=== PATIENT | male | born 1970 | race Caucasian/White ===

== ENCOUNTER → 2017-11-22 11:33 | Outpatient (CLI) | payer BC, SELFPAY ==
[2017-11-22 14:36] LABS: Anion Gap 7 (5-15); BUN 13 mg/dL (7-18); BUN/Creat Ratio 14.4 RATIO (10-20); Calcium,Total 9.3 mg/dL (8.5-10.1); Chloride 104 mmol/L (98-107); EST Glomerular Filtration Rate 95 mL/min (>60); Est Glom Filt Rate - Afr Amer 116 mL/min (>60); Glucose 102 mg/dL (74-106); Sodium Level 137 mmol/L (136-145)
== END ==
LOC: MFPLAB 11:34
PROVIDERS: Family Provider Family Medicine; PCP Family Medicine; Visit Provider Family Medicine
DX: I10 Essential (primary) hypertension (principal)
CPT/HCPCS: 36415; 80048; 84403

== ENCOUNTER 2017-12-23 17:35 | Emergency (ER) | payer BC, SELFPAY ==
[2017-12-23 17:35] VITALS: PULSE 84; RESP 19; TEMP 37.2; O2SAT 98; BMI 35.4
[2017-12-23 17:56] VITALS: PULSE 80; RESP 24; O2SAT 97
[2017-12-23] MEDS: 0.9% Normal Saline 1,000 ML 1000 ML IV (18:05)
[2017-12-23] MEDS: Ondansetron 4 MG/2 ML Vial IV (18:05)
[2017-12-23] MEDS: Metoclopramide 10 MG/2 ML Vial IV (18:42)
[2017-12-23] MEDS: Dicyclomine 10 MG Capsule 20 MG PO (18:42)
--- NOTE | 2017-12-23 20:12 | ED.VISSUMM ---
- ER Visit Summary Date of Service: 12/23/17 Chief Complaint: Abdominal pain with nausea, vomiting diarrhea History of Present Illness: The patient is a 47 M who presents with abdominal pain with nausea, vomiting and diarrhea that started last evening. He did not eat anything that tasted unusual. Has not been on antibiotics the last month. There is no ill contacts. He reports 5-10 episodes of vomiting. He reports greater than 10 loose stools with mucus. There is no blood. There is no particular order. He does complain of thirst, lightheadedness and dry mouth. He does complain of subjective fever. He denies headache. Denies any ocular, visual or auditory symptoms. He did report shortness of breath. He does have history of anxiety/PTSD. He denies any chest pain. He reports decreased urine output. His urine is darker than normal. He denies any skin lesions. Denies myalgias arthralgias. Please read written note for complete detail. Physical Examination: Vital signs unremarkable. HEENT exam is remarkable dry mucosa. Heart is regular without murmur, gallop or rub. S1 and S2 are normal. Lungs are clear to auscultation with good movement of air bilaterally. Abdomen is minimally tender without guarding or rebound tenderness. Bowel sounds are markedly elevated. Examination lower extremity reveals no rash. There is no swelling of any joints. Neuro exam is nonfocal. Test Results: None were obtained Emergency Department Course and Treatment: IV was established she received 1 L of normal saline. He was treated with Zofran 4 mg IV push. He stated minimal improvement. He was then administered 10 mg of Reglan. He also received 20 mm of Bentyl. I was informed by nursing staff at 1999 that he feels markedly better would like to go home. Treatment Plan: Discharge to home with Bentyl and Reglan Disposition: Discharged home in stable improved condition Impression: 1. Abdominal pain with nausea, vomiting diarrhea 2. Mild dehydration This note was generated with [employer] dictation software. It may contain incorrect words, spelling, and punctuation that were not noted in review of the chart prior to signing ED Disposition - Plan for ED Patient: Disposition: Home or Assisted Living Chief Complaint: Nausea/Vomiting/Diarrhea Instructions: ED Vomiting Diarrhea Nonspecific Ad Prescriptions: Dicyclomine HCl [Bentyl] 20 mg PO TIDAC #10 cap Metoclopramide [Reglan] 10 mg PO 4X/DAY PRN #10 tab PRN Reason: Headache Referrals: Cezar Valera MD [Primary Care Provider] - 3-5 Days if not improving
[2017-12-23 20:16] VITALS: BP 124/68; PULSE 61; RESP 16; O2SAT 100
== END 2017-12-23 20:22 | disposition home or self-care (01) ==
PROVIDERS: Emergency Provider Emergency Medicine; Family Provider Family Medicine; PCP Family Medicine
DX: R10.9 Unspecified abdominal pain (principal); R11.2 Nausea with vomiting, unspecified; R19.7 Diarrhea, unspecified; E86.0 Dehydration; F41.9 Anxiety disorder, unspecified; F43.10 Post-traumatic stress disorder, unspecified; Z86.711 Personal history of pulmonary embolism; Z86.718 Personal history of other venous thrombosis and embolism; Z79.899 Other long term (current) drug therapy
CPT/HCPCS: 93005; 96361; 96374; 96375; 99283; J7030; J2405

== ENCOUNTER → 2018-02-20 15:31 | Outpatient (CLI) | payer BC, SELFPAY ==
--- NOTE | 2018-02-20 15:36 | RAD_ITS ---
STUDY: X-RAY - ABDOMEN/PELVIS REASON FOR EXAM: Male, 47 years old. Abdominal pain, irregular BM, hard or diarrhea. TECHNIQUE: AP supine and upright views of the abdomen and pelvis. 4 images. COMPARISON: None. FINDINGS: Normal visualized lung bases. There is an unremarkable bowel gas pattern. There is no demonstrated free abdominal air. The liver appears enlarged. Normal soft tissue structures. Normal visualized osseous structures. RAD/Abd Inc Decub and/or Erect IMPRESSION: There is no obstruction or perforation. Hepatomegaly. Electronically Signed: Nohemi Benoit MD at 5:59 EDT , Service support ,
[2018-02-20 17:43] LABS: Absolute Neutrophil Count 6.9 X10^3/uL (2.0-7.7); Basophil# 0.04 X10^3/uL; Basophil% 0.4 % (0-1); Eosinophil# 0.19 X10^3/uL; Eosinophils% 1.9 % (0-5); Hematocrit 48.9 % (40-54); Lymphocyte % 20.3 % (19-41); Mean Corp Hgb Conc 32.7 g/gl (32-36); Mean Corpuscular Hgb 29.6 pg (27.0-32.0); Mean Corpuscular Volume 90.6 fL (80-94); Mean Platelet Vol. 10.8 fl (6.2-12.0); Monocyte# 0.72 X10^3/uL; Monocyte% 7.3 % (0-10); Neutrophil # 6.88 X10^3/uL (2.7-7.7); Platelet Count 256 K/mm3 (150-450); RBC Distribution Width CV 13.6 % (11.6-14.6); RBC Distribution Width SD 44.8 fl (35.1-43.9); White Blood Count 9.8 K/mm3 (4.4-11.0)
[2018-02-20 17:53] LABS: POSITIVE COUNT NO; POSITIVE DIFFERENTIAL NO; POSITIVE MORPHOLOGY NO
[2018-02-20 17:57] LABS: D-Dimer Quantitative (DVT/PE) < 0.27 FEU/ug/m (0.27-0.49)
[2018-02-20 18:02] LABS: ALB/GLOB Ratio 1.1 RATIO (0.9-2.4); AST(SGOT) 35 U/L (15-37); Alanine Aminotransfer ALT/SGPT 58 U/L (16-61); Albumin, Serum 4.1 g/dL (3.2-5.0); Alkaline Phosphatase 107 U/L (45-117); Anion Gap 8 (5-15); BUN 13 mg/dL (7-18); BUN/Creat Ratio 12.3 RATIO (10-20); Calcium,Total 9.3 mg/dL (8.5-10.1); Chloride 103 mmol/L (98-107); Creatinine, Serum 1.06 mg/dL (0.70-1.30); EST Glomerular Filtration Rate 79 mL/min (>60); Est Glom Filt Rate - Afr Amer 96 mL/min (>60); Globulin 3.8 g/dL (2.2-4.2); Glucose 102 mg/dL (74-106); Protein, Total 7.9 g/dL (6.4-8.2); Sodium Level 140 mmol/L (136-145)
== END ==
LOC: MTLAB 15:32
PROVIDERS: Family Provider Family Medicine; PCP Family Medicine; Visit Provider Family Medicine
DX: R10.9 Unspecified abdominal pain (principal)
CPT/HCPCS: 36415; 74019; 80053; 85025; 85379

== ENCOUNTER → 2018-10-03 17:12 | Outpatient (CLI) | payer OTHER, SELFPAY ==
--- NOTE | 2018-10-03 17:16 | RAD_ITS ---
STUDY: X-RAY CHEST REASON FOR EXAM: Male, 48 years old. Shortness of breath and cough TECHNIQUE: PA and lateral views of the chest. COMPARISON: 04/06/2017 FINDINGS: The lungs are clear and expanded. There is no demonstrated pleural abnormality. Normal size heart. Normal mediastinum and martell. Normal visualized pulmonary arteries. Normal visualized aortic arch and descending thoracic aorta. Normal visualized thoracic spine. Normal visualized ribs, clavicles, and shoulders. There is no demonstrated abnormality of the visualized soft tissue structures of the upper abdomen. RAD/Chest PA and Lateral IMPRESSION: Stable exam. No airspace consolidation or pleural effusion. Electronically Signed: Colt Schulte MD at 17:57 EDT , Service support ,
== END ==
LOC: MTRAD 17:14
PROVIDERS: Family Provider Family Medicine; PCP Family Medicine; Referring Provider Family Medicine; Visit Provider Family Medicine
DX: R06.02 Shortness of breath (principal)
CPT/HCPCS: 71046

== ENCOUNTER → 2018-10-10 12:18 | Outpatient (CLI) | payer OTHER, SELFPAY ==
[2018-10-10 14:17] LABS: Absolute Lymphocyte Count 2.02 X10^3/ul (0.83-4.51); Absolute Neutrophil Count 7.2 X10^3/uL (2.0-7.7); Basophil# 0.03 X10^3/uL; Basophil% 0.3 % (0-1); Eosinophil# 0.15 X10^3/uL; Eosinophils% 1.4 % (0-5); Hematocrit 49.1 % (40-54); Hemoglobin 16.1 g/dl (13.0-16.5); Lymphocyte # 2.02 X10^3/ul (4.0); Lymphocyte % 19.5 % (19-41); Mean Corp Hgb Conc 32.8 g/gl (32-36); Mean Corpuscular Hgb 29.8 pg (27.0-32.0); Mean Corpuscular Volume 90.9 fL (80-94); Mean Platelet Vol. 10.7 fl (6.2-12.0); Monocyte# 0.93 X10^3/uL; Neutrophil # 7.19 X10^3/uL (2.7-7.7); Neutrophil % 69.4 % (47-70); POSITIVE COUNT NO; POSITIVE DIFFERENTIAL NO; POSITIVE MORPHOLOGY NO; Platelet Count 295 K/mm3 (150-450); RBC Distribution Width SD 45.7 fl (35.1-43.9); White Blood Count 10.4 K/mm3 (4.4-11.0)
[2018-10-10 14:21] LABS: D-Dimer Quantitative (DVT/PE) < 0.27 FEU/ug/m (0.27-0.49)
[2018-10-10 14:27] LABS: Anion Gap 6 (5-15); BUN 16 mg/dL (7-18); BUN/Creat Ratio 16.6 RATIO (10-20); Calcium,Total 9.1 mg/dL (8.5-10.1); Chloride 102 mmol/L (98-107); Creatinine, Serum 0.97 mg/dL (0.70-1.30); EST Glomerular Filtration Rate 88 mL/min (>60); Est Glom Filt Rate - Afr Amer 106 mL/min (>60); Glucose 103 mg/dL (74-106); Potassium 4.1 mmol/L (3.5-5.1); Sodium Level 137 mmol/L (136-145)
== END ==
LOC: MTLAB 12:19
PROVIDERS: Family Provider Family Medicine; PCP Family Medicine; Referring Provider Family Medicine; Visit Provider Family Medicine
DX: R07.9 Chest pain, unspecified (principal)
CPT/HCPCS: 36415; 80048; 84484; 85025; 85379

== ENCOUNTER → 2018-10-21 06:22 | Outpatient (CLI) | payer OTHER, SELFPAY ==
--- NOTE | 2018-10-21 13:28 | STRESSREP_ITS ---
Stress Test Report Exercise myocardial perfusion stress test. 48-year-old man with a history of chest pain Stress protocol: Resting EKG demonstrates normal sinus rhythm with a rate of 64 bpm normal intervals are noted resting blood pressure 148/92 mmHg. The patient exercised according to regular Duncan protocol for total duration of 7 minutes. Patient co mpleted 1 minute into stage III of the Duncan protocol the maximum heart rate attained was 150 bpm which was 87% of maximum predicted heart rate. The maximum workload was 8.5 metabolic equivalents. At rest there were no ST or T wave changes noted suggest ischemia peak exercise upsloping ST changes only were noted with no meet the criteria for ischemia. No clinical angina was noted the test was terminated due to shortness of breath. The resting blood pressure was 148/92 with a peak blood pressure of 220/80 mmHg. Rate pressure product was 31,600. Myocardial perfusion protocol. 14.9 mCi of technetium 99m sestamibi was injected at rest. The patient exercised for total duration of 7 minutes at peak exercise 44.8 mCi of technetium 99m sestamibi was injected stress images were obtained stress and rest images were reconstructed and compared in the short axis vertical long horizontal long axis. Gated images were also obtained per Perfusion SPECT analysis: Review of the stress images demonstrate normal uptake of tracer noted in all areas of the myocardium the resting images similarly demonstrate normal uptake of tracer noted in all areas of the myocardium. No areas of reversibility are noted suggest ischemia. Gated SPECT analysis: The gated ejection fraction is noted to be 54%. Conclusion: Normal exercise myocardial perfusion stress test at a moderate workload. Hypertensive response to exercise. Preserved ejection fraction.
== END ==
LOC: CVS 06:23
PROVIDERS: Family Provider Family Medicine; PCP Family Medicine; Referring Provider Family Medicine; Visit Provider Family Medicine
DX: R07.9 Chest pain, unspecified (principal)
CPT/HCPCS: 78452; 93017; A9500; A4216

== ENCOUNTER → 2019-03-26 | Outpatient (CLI) | payer OTHER, SELFPAY ==
[2019-03-26 10:55] LABS: Anion Gap 9 (5-15); BUN 16 mg/dL (7-18); Calcium,Total 8.8 mg/dL (8.5-10.1); Chloride 107 mmol/L (98-107); Cholesterol 202 mg/dL (200); EST Glomerular Filtration Rate 84 mL/min (>60); Est Glom Filt Rate - Afr Amer 102 mL/min (>60); Glucose 93 mg/dL (74-106); High Density Lipoprotein 51 mg/dL; Potassium 4.1 mmol/L (3.5-5.1); Sodium Level 140 mmol/L (136-145); Triglycerides 135 mg/dL; Very Low Density Lipoprotein 27 mg/dL (5-40)
== END | disposition home or self-care (01) ==
LOC: MTLAB 09:27
PROVIDERS: Family Provider Family Medicine; PCP Family Medicine; Referring Provider Family Medicine; Visit Provider Family Medicine
DX: I10 Essential (primary) hypertension (principal); R79.89 Other specified abnormal findings of blood chemistry
CPT/HCPCS: 36415; 80048; 80061; 84403

== ENCOUNTER → 2019-05-12 | Outpatient (CLI) | payer OTHER, SELFPAY ==
[2019-05-12 14:11] LABS: Absolute Lymphocyte Count 1.59 X10^3/uL (0.83-4.51); Absolute Neutrophil Count 5.9 X10^3/uL (2.0-7.7); Basophil# 0.06 X10^3/uL; Basophil% 0.7 % (0-1); Eosinophil# 0.25 X10^3/uL; Eosinophils% 2.9 % (0-5); Hematocrit 44.7 % (40-54); Hemoglobin 14.5 g/dL (13.0-16.5); Lymphocyte # 1.59 X10^3/ul (4.0); Lymphocyte % 18.3 % (19-41); Mean Corp Hgb Conc 32.4 g/dL (32-36); Mean Corpuscular Hgb 29.5 pg (27.0-32.0); Mean Platelet Vol. 10.4 fl (6.2-12.0); Monocyte% 9.2 % (0-10); NRBC Flagged by Analyzer 0 % (0-5); Neutrophil # 5.93 X10^3/uL (2.7-7.7); Neutrophil % 68.3 % (47-70); Platelet Count 233 K/mm3 (150-450); RBC Distribution Width CV 13.9 % (11.6-14.6); RBC Distribution Width SD 46.8 fl (35.1-43.9); Red Blood Count 4.91 M/mm3 (4.6-6.2); White Blood Count 8.7 K/mm3 (4.4-11.0)
[2019-05-12 14:19] LABS: D-Dimer Quantitative (DVT/PE) < 0.27 FEU/ug/m (0.27-0.49)
[2019-05-12 15:03] LABS: Anion Gap 7 (5-15); BUN 15 mg/dL (7-18); BUN/Creat Ratio 19.7 RATIO (10-20); Chloride 104 mmol/L (98-107); Creatinine, Serum 0.76 mg/dL (0.70-1.30); EST Glomerular Filtration Rate 115 mL/min (>60); Est Glom Filt Rate - Afr Amer 140 mL/min (>60); Glucose 82 mg/dL (74-106); Potassium 4.3 mmol/L (3.5-5.1); Sodium Level 139 mmol/L (136-145)
== END | disposition home or self-care (01) ==
LOC: MFPLAB 12:27
PROVIDERS: Family Provider Family Medicine; PCP Family Medicine; Referring Provider Family Medicine; Visit Provider Family Medicine
DX: R07.9 Chest pain, unspecified (principal)
CPT/HCPCS: 36415; 80048; 84403; 85025; 85379

== ENCOUNTER 2019-05-14 17:07 | Emergency (ER) | payer OTHER, SELFPAY ==
[2019-05-14 17:09] VITALS: BP 158/89; PULSE 89; RESP 18; TEMP 36.7; O2SAT 95; BMI 38.7
--- NOTE | 2019-05-14 17:30 | CT_ITS ---
STUDY: CTA CHEST REASON FOR EXAM: Male, 48 years old. Pain RADIATION DOSAGE (If Supplied By Facility): CTDIvol = ( 11.48 ) mGy, DLP = ( 448.72 ) mGycm TECHNIQUE: The examination was performed with the intravenous administration of IV Isovue 250 100ml. Post-processing of the angiographic images was performed, with multiplanar reformation and 3D reconstruction. Individualized dose optimization techniques were used for this CT. COMPARISON: None. FINDINGS: Normal enhancement of the main pulmonary artery and right and left pulmonary arteries. Normal enhancement of the bilateral peripheral pulmonary arteries. There is no demonstrated pulmonary embolism. Normal thoracic aorta and visualized great vessels. There is no demonstrated aortic dissection. Normal heart and pericardium. Normal mediastinum. Normal hilar regions. Normal visualized trachea and bronchi. The lungs are well expanded. Normal pulmonary parenchyma. Normal pleura. Normal chest wall structures. Normal osseous structures. Normal visualized upper abdomen. CT/CTA Chest W/WO Contrast IMPRESSION: Normal CTA chest examination, without a demonstrated pulmonary embolism or arterial dissection. Electronically Signed: Alvaro Loomis, at 18:09 EDT Tel , Service support ,
--- NOTE | 2019-05-14 17:31 | EKG12_ITS ---
Test Reason : CP Blood Pressure : / mmHG Vent. Rate : 103 BPM Atrial Rate : 103 BPM P-R Int : 148 ms QRS Dur : 086 ms QT Int : 346 ms P-R-T Axes : 046 027 043 degrees QTc Int : 453 ms Sinus tachycardia Nonspecific ST abnormality Abnormal ECG Confirmed by FOREST SALAZAR, BERNARDO ([id number]), editorial manager AREN GROVES ([id number]) on 05/16/2019 1:19:28 PM Referred By: MITRA Confirmed By:IKE GARG MD
[2019-05-14] MEDS: Ondansetron 4 MG/2 ML Vial IV (17:41)
[2019-05-14] MEDS: Morphine 4 MG/ML Syringe IV (17:41)
[2019-05-14 17:42] LABS: Absolute Lymphocyte Count 2.28 X10^3/uL (0.83-4.51); Absolute Neutrophil Count 7.9 X10^3/uL (2.0-7.7); Basophil% 0.9 % (0-1); Eosinophil# 0.26 X10^3/uL; Eosinophils% 2.2 % (0-5); Hematocrit 49.2 % (40-54); Hemoglobin 16.2 g/dL (13.0-16.5); Lymphocyte # 2.28 X10^3/ul (4.0); Lymphocyte % 19.4 % (19-41); Mean Corp Hgb Conc 32.9 g/dL (32-36); Mean Corpuscular Hgb 29.8 pg (27.0-32.0); Mean Corpuscular Volume 90.4 fL (80-94); Mean Platelet Vol. 9.9 fl (6.2-12.0); Monocyte# 1.12 X10^3/uL; Monocyte% 9.5 % (0-10); NRBC Flagged by Analyzer 0 % (0-5); Neutrophil # 7.92 X10^3/uL (2.7-7.7); Neutrophil % 67.6 % (47-70); Platelet Count 267 K/mm3 (150-450); RBC Distribution Width CV 13.3 % (11.6-14.6); RBC Distribution Width SD 43.9 fl (35.1-43.9); Red Blood Count 5.44 M/mm3 (4.6-6.2); White Blood Count 11.7 K/mm3 (4.4-11.0)
[2019-05-14 17:55] LABS: Anion Gap 7 (5-15); BUN 21 mg/dL (7-18); BUN/Creat Ratio 19.6 RATIO (10-20); Calcium,Total 9.7 mg/dL (8.5-10.1); Chloride 105 mmol/L (98-107); Creatinine, Serum 1.07 mg/dL (0.70-1.30); EST Glomerular Filtration Rate 78 mL/min (>60); Est Glom Filt Rate - Afr Amer 94 mL/min (>60); Estimated Creatinine Clearance 86.23 ml/min; Glucose 98 mg/dL (74-106); Potassium 3.9 mmol/L (3.5-5.1); Sodium Level 138 mmol/L (136-145)
[2019-05-14 18:08] VITALS: BP 184/91; PULSE 82; RESP 18; O2SAT 99
[2019-05-14 19:12] VITALS: RESP 16
--- NOTE | 2019-05-14 19:38 | ED.VISSUMM ---
- ER Visit Summary Date of Service: 05/14/19 Chief Complaint: Chest pain History of Present Illness: The patient is a 48 M who states that approximately 1500 hrs. today he developed a tightness left side of his chest going into the left arm. He had the symptoms before when he had a pulmonary embolism. He also notes that he is undergoing treatment for PTSD. Sees Dr. Valera for primary care. He lives with his . No leg swelling recent surgeries or trips. His prior pulmonary embolism appears to have been unprovoked and he tells me he underwent a hypercoagulable work-up which was negative. He tells me at times he will get very flushed sweaty. Physical Examination: Afebrile vital signs are stable Gen: Well-nourished well-developed Head: Normocephalic atraumatic Eyes: Perrl EOMI ENT: TMs clear no rhinorrhea moist mucous membranes Neck: Supple no lymphadenopathy no JVD nontender CVS: Regular rate rhythm no murmurs normal S1-S2 Respiratory: No distress clear to auscultation bilaterally chest nontender Abdomen: Soft nontender nondistended normal bowel sounds no masses Back: Nontender Extremity: Nontender no edema Skin: Normal color no rash Neuro: alert orientated ?3 CN II-XII intact normal strength sensation reflexes gait cerebellar Psych: Patient appears anxious. Test Results: EKG sinus rhythm at a rate of 103. White count 11.7. BUN 21 with creatinine 1.07. Initial troponin is negative. Emergency Department Course and Treatment: CTA of the chest was obtained because of his prior PE. No pulmonary embolism or evidence of dissection is noted. Patient declines a B set of cardiac enzymes. His heart score is 2 and his AKANKSHA score is 0. Impression: 1. Chest pain This note was generated with [employer] dictation software. It may contain incorrect words, spelling, and punctuation that were not noted in review of the chart prior to signing ED Disposition - Plan for ED Patient: Disposition: Home or Assisted Living Instructions: CHEST PAIN, Uncertain Cause Referrals: Cezar Valera MD [Primary Care Provider] - 3-5 Days
[2019-05-14 19:43] VITALS: BP 193/90; PULSE 86; RESP 16; O2SAT 97
== END 2019-05-14 19:44 | disposition home or self-care (01) ==
PROVIDERS: Emergency Provider Emergency Medicine; Family Provider Family Medicine; PCP Family Medicine
DX: R07.9 Chest pain, unspecified (principal); Z86.711 Personal history of pulmonary embolism; F43.10 Post-traumatic stress disorder, unspecified; Z79.899 Other long term (current) drug therapy
CPT/HCPCS: 71275; 80048; 84484; 85025; 93005; 96374; 96375; 99284; Q9967; A4216; J2405

== ENCOUNTER → 2019-08-28 09:57 | Outpatient (CLI) | payer OTHER, SELFPAY | PROVIDERS: PCP Family Medicine; Referring Provider Family Medicine; Visit Provider Family Medicine | DX: R79.89 Other specified abnormal findings of blood chemistry (principal) | CPT/HCPCS: 36415; 84403 ==

== ENCOUNTER 2022-04-17 09:46 | Emergency (ER) | payer OTHER, SELFPAY ==
[2022-04-17 09:47] VITALS: BP 154/85; PULSE 78; RESP 18; TEMP 36.2; O2SAT 97; BMI 35.2
--- NOTE | 2022-04-17 10:12 | CT_ITS ---
STUDY: CT ABDOMEN AND PELVIS WITH CONTRAST REASON FOR EXAM: Male, 51 years old. Abdominal pain with discomfort and bloating. Black stools. RADIATION DOSAGE (If Supplied By Facility): CTDIvol = ( 16.58 ) mGy, DLP = ( 1219.23 ) mGycm TECHNIQUE: Transaxial images were obtained from the dome of the diaphragm to the symphysis pubis without oral contrast. IV 100mL Isovue-370 was administered. Sagittal and coronal images were reconstructed. Individualized dose optimization techniques were used for this CT. COMPARISON: Comparison is made with prior study 05/13/2013. FINDINGS: The visualized lung bases are unremarkable. The visualized portions of the heart are within normal limits. Normal liver. Normal gallbladder and extrahepatic biliary system. Normal spleen. Normal pancreas. Normal bilateral adrenal glands. Normal right kidney. Normal left kidney. Incidental note is made of a left retroaortic renal vein. Normal visualized stomach. Normal small intestine. There are scattered colonic diverticula consistent with diverticulosis. The appendix is visualized and appears normal. Normal abdominal aorta. Normal inferior vena cava. Normal retroperitoneum. Normal urinary bladder. There are prostatic calcifications. Normal abdominal wall. There are mild degenerative changes of the visualized lumbar spine. CT/Abdomen/Pelvis W IV Cont ONLY IMPRESSION: Scattered sigmoid diverticula. Electronically Signed: Garry Ashby MD at 11:57 EDT ,
--- NOTE | 2022-04-17 10:13 | ED.VIS.GI ---
HPI HPI - GI History of Present Illness Chief Complaint: GI Bleed Informant: patient Narrative Narrative: [facility]. With having abdominal bloating and discomfort for past week. Indigestion symptoms. Reported he was having dark stools. He is using Pepto-Bismol however states he noted more the black stools prior to this. He stopped taking this on Sunday. Normal bowel movements are 3 times a day. Reports he is having multiple bowel moods a day however they are smaller. Colonoscopy in the last year reporting negative and cleared for 10 years. Unclear of any upper endoscopies in the past. Reported elevated liver enzymes over the past 4 months no alcohol history states had outpatient ultrasounds and hepatitis blood work that were negative. He was trending down now recently going back up. Denies fevers. No problems urination. No abdominal surgeries in the past. No anticoagulation medications. Prior similar symptoms: No PFSH PFSH Home Medications clonazepam 2 mg tablet (Klonopin) 2 mg PO DAILY PRN PRN Anxiety 12/23/17 [History Last Taken Unknown] fluoxetine 10 mg capsule 40 mg PO DAILY 05/14/19 [History Last Taken Unknown] trazodone 50 mg tablet 50 mg PO QHS 05/14/19 [History Last Taken Unknown] vortioxetine 20 mg tablet 20 mg PO DAILY 05/14/19 [History Last Taken Unknown] Allergy/AdvReac Type Severity Reaction Status Date / Time No Known Allergies Allergy Verified 04/17/22 09:49 Social History Smoking Status: Never smoker ROS ROS ED Constitutional Constitutional ED: Denies chills, fever(s) or sweats Eyes Eyes: Denies change in vision ENT ENT ED: Denies dysphagia or sore throat Cardiovascular Cardiovascular: Denies chest pain, leg edema, palpitations or racing heartbeat Respiratory/Chest Respiratory/Chest: Denies cough, dyspnea or dyspnea on exertion Gastrointestinal Gastrointestinal: Reports abdominal pain and other Details: Black stools ; Denies diarrhea, nausea or vomiting Genitourinary Genitourinary ED: Denies dysuria, hematuria or urinary frequency Musculoskeletal Musculoskeletal: Denies back pain, extremity pain or neck pain Integumentary Denies rash or wounds Neurologic Neurologic: Denies headache(s), paresthesias or weakness EXAM Physical Exam Const Vital Signs: 04/17/22 09:47 04/17/22 12:02 Temperature 97.2 F L Temperature Source Temporal Pulse Rate 78 Respiratory Rate 18 16 Blood Pressure 154/85 H Blood Pressure Mean 108 Pulse Ox 97 Oxygen Delivery Method Room Air Positive well nourished and well developed General Appearance ED: well developed and NAD HEENT Reports moist mucous membranes normocephalic and atraumatic Eyes PERRL, EOMs intact bilaterally and conjunctivae normal General Eye ED: Yes normal appearance of both eyes Neck no lymphadenopathy and supple General: Negative for tenderness Chest Wall Chest: Negative for tenderness Resp normal respiratory effort and normal air movement Effort and Inspection: symmetric chest movement; Negative for respiratory distress Cardio regular rate, regular rhythm and no murmurs Peripheral Pulses: pulses 2+ throughout GI normal to inspection, nondistended, normoactive bowel sounds and non-tender GI Narrative: Negative Ferguson's or McBurney's tenderness. Rectal exam: Known hemorrhoids, brown stools on rectal exam. Guaiac pending. Palpation: Negative for guarding or rebound tenderness present Back/Spine no CVA tenderness and no thoracic nor lumbar tenderness Extremity normal to inspection General Extremety ED: Negative for edema or tenderness General Extremity: Negative for edema Neuro oriented x3 and no sensory deficits noted Sensorium / Orientation: awake and alert Skin no rashes or lesions noted and no wounds MDM MDM MDM Narrative Medical decision making narrative: Patient 1 week constant bloating feels distended. Nonsurgical abdomen on exam. Abdominal labs obtained. Lipase normal at 283. He has slight transaminitis ALT 209 AST 85 normal bilirubin and normal alk phos. Discussed with patient this is lower than his outpatient labs. White count 7.3. CT scan IV contrast abdomen pelvis rule out any acute abnormalities which was normal. Normal appendix. Reported normal colonoscopy 2 years ago, had a reported right upper quadrant ultrasound the last few months. Offered her follow-up with GI here but he states he will call [facility] for [facility]. He is more reassured. He will monitor symptoms. Return precautions. All questions were answered. Lab Data Attestation: I reviewed the patient's lab results. Labs: Laboratory Results - last 24 hr 04/17/22 04/17/22 10:15 10:15 WBC 7.3 RBC 5.72 Hgb 17.0 H Hct 51.3 MCV 89.7 MCH 29.7 MCHC 33.1 RDW Std Deviation 46.0 H RDW Coeff of Sri 13.9 Plt Count 219 MPV 10.1 Immature Gran % (Auto) 0.500 Neut % (Auto) 56.4 Lymph % (Auto) 28.1 [place] % (Auto) 11.7 H Eos % (Auto) 2.5 Baso % (Auto) 0.8 Absolute Neuts (auto) 4.1 Absolute Lymphs (auto) 2.05 Nucleated RBC % 0 Sodium 139 Potassium 4.6 Chloride 105 Carbon Dioxide 29.0 Anion Gap 5 BUN 11 Creatinine 1.10 Estim Creat Clear Calc 81.11 Est GFR (MDRD) Af Amer 90 Est GFR (MDRD) Non-Af 75 BUN/Creatinine Ratio 10.0 Glucose 93 Calcium 9.1 Total Bilirubin 0.40 Direct Bilirubin 0.11 AST 85 H ALT 209 H Alkaline Phosphatase 101 Total Protein 7.1 Albumin 3.3 Globulin 3.8 Lipase 283 Radiography Diagnostic Testing: Clinical Impression(s) from Imaging Studies Abdomen/Pelvis CT 04/17/22 10:12 IMPRESSION: Scattered sigmoid diverticula. Electronically Signed: Garry Ashby MD at 11:57 EDT Reading Location ID and State: [facility] / [place] , Service support , Discharge Plan Triage Chief Complaint: GI Bleed ED Provider: Augustin Gray Dx/Rx/DC Orders Clinical Impression: Abdominal bloating, Diverticula of intestine, Transaminitis Instructions: ED Diverticulosis Prescriptions: No Action clonazepam [Klonopin] 2 MG tablet 2 mg PO DAILY PRN PRN (Reason: Anxiety) trazodone 50 MG tablet 50 mg PO QHS fluoxetine 10 MG capsule 40 mg PO DAILY Label Comments: TAKE 2 CAPSULES ORALLY DAILY FIRST 5 DAYS ONLY 1 CAPS vortioxetine 20 MG tablet 20 mg PO DAILY Label Comments: TAKE 1 TABLET BY MOUTH EVERY DAY Primary Care Provider: [facility] Referrals: Cezar Valera MD [Med Staff - Active Staff] - 3-5 Days Activity Restrictions/Additional Instructions: Your ALT is 209, AST 85. Normal lipase. Hemoglobin 17. CT scan with no abnormalities noted colonic diverticula. No diverticulitis. Rectal exam negative for bleed. Normal appendix. Monitor symptoms and follow-up with your doctor. Disposition Disposition: Home, Self Care Discharge Date/Time: 04/17/22 12:34
[2022-04-17] MEDS: 0.9% Normal Saline 1,000 ML 1000 ML IV (10:26)
[2022-04-17 10:31] LABS: Absolute Lymphocyte Count 2.05 X10^3/uL (0.83-4.51); Absolute Neutrophil Count 4.1 X10^3/uL (2.0-7.7); Basophil# 0.06 X10^3/uL; Basophil% 0.8 % (0-1); Eosinophil# 0.18 X10^3/uL; Eosinophils% 2.5 % (0-5); Hematocrit 51.3 % (40-54); Lymphocyte # 2.05 X10^3/ul (0.83-4.51); Lymphocyte % 28.1 % (19-41); Mean Corp Hgb Conc 33.1 g/dL (32-36); Mean Corpuscular Hgb 29.7 pg (27.0-32.0); Mean Corpuscular Volume 89.7 fL (80-94); Mean Platelet Vol. 10.1 fl (6.2-12.0); Monocyte# 0.85 X10^3/uL; Monocyte% 11.7 % (0-10); NRBC Flagged by Analyzer 0 % (0-5); Neutrophil # 4.11 X10^3/uL (2.7-7.7); Neutrophil % 56.4 % (47-70); Platelet Count 219 K/mm3 (150-450); RBC Distribution Width CV 13.9 % (11.6-14.6); Red Blood Count 5.72 M/mm3 (4.6-6.2); White Blood Count 7.3 K/mm3 (4.4-11.0)
[2022-04-17 10:56] LABS: AST(SGOT) 85 U/L (15-37); Alanine Aminotransfer ALT/SGPT 209 U/L (16-61); Albumin, Serum 3.3 g/dL (3.2-5.0); Alkaline Phosphatase 101 U/L (45-117); Anion Gap 5 (5-15); BUN 11 mg/dL (7-18); Bilirubin, Direct 0.11 mg/dL (0.00-0.30); Calcium,Total 9.1 mg/dL (8.5-10.1); Chloride 105 mmol/L (98-107); EST Glomerular Filtration Rate 75 mL/min (>60); Est Glom Filt Rate - Afr Amer 90 mL/min (>60); Estimated Creatinine Clearance 81.11 ml/min; Globulin 3.8 g/dL (2.2-4.2); Glucose 93 mg/dL (74-106); Lipase 283 U/L (73-393); Potassium 4.6 mmol/L (3.5-5.1); Protein, Total 7.1 g/dL (6.4-8.2); Sodium Level 139 mmol/L (136-145)
[2022-04-17 12:02] VITALS: RESP 16
== END 2022-04-17 12:34 | disposition home or self-care (01) ==
PROVIDERS: Emergency Provider Emergency Medicine; Visit Provider Emergency Medicine
DX: K57.30 Diverticulosis of large intestine without perforation or abscess without bleeding (principal); R74.01 Elevation of levels of liver transaminase levels; R14.0 Abdominal distension (gaseous)
CPT/HCPCS: 74177; 80048; 80076; 82274; 83690; 85025; 96365; 99283; J7030; Q9967; A4216; J3490

== ENCOUNTER 2022-06-20 12:32 | Inpatient (IN) | payer OTHER, SELFPAY ==
[2022-06-20] VITALS (24 sets, daily range): BP systolic 143–173; BP diastolic 84–107; PULSE 59–83; RESP 15–20; TEMP 36.5–37.1; O2SAT 94–98; BMI 37.7; BMI 37.8
--- NOTE | 2022-06-20 12:42 | ED.VIS.CHEST ---
HPI History of Present Illness Chief Complaint: Chest Pain Narrative Narrative: 51-year-old male past medical history of PTSD, depression and anxiety, positive family history of early coronary artery disease in his father presents with chest pain that began while he was lifting weights just prior to arrival. He states he had twinges of pain on the left side that he thought would go away. He rested but then became diaphoretic. He was nauseated and almost vomited as he was driving to the hospital. He denies any recent leg swelling. No history of hypertension. No exacerbating or alleviating factors. It does not radiate to his jaw or arm but is mainly on the left side of his chest. [facility] Medical History (Updated 06/20/22 @ 13:10 by Rocky Zabala MD) Pulmonary embolism Home Medications clonazepam 2 mg tablet (Klonopin) 2 mg PO DAILY PRN PRN Anxiety 12/23/17 [History Last Taken Unknown] fluoxetine 10 mg capsule 40 mg PO DAILY 05/14/19 [History Last Taken Unknown] trazodone 50 mg tablet 150 mg PO QHS 05/14/19 [History Last Taken Unknown] vortioxetine 20 mg tablet 20 mg PO DAILY 05/14/19 [History Last Taken Unknown] Allergy/AdvReac Type Severity Reaction Status Date / Time No Known Allergies Allergy Verified 06/20/22 12:37 Social History Smoking Status: Never smoker ROS ROS ED ROS Narrative Constitutional: No fever, no chills. Positive diaphoresis HEENT: No sore throat. No neck pain. No loss of vision. No rhinorrhea. Cardiovascular: Left-sided chest pain. No palpitations. No pedal edema. Respiratory: No cough, no shortness of breath. Abdominal: No abdominal pain. Positive nausea. No vomiting. Genitourinary: No dysuria. No hematuria. Musculoskeletal: No myalgias. No arthralgias. Neurologic: No headaches. No dizziness. No lightheadedness. Skin: No rash. No change in color. Psychiatric: No depression. No anxiety. EXAM Physical Exam Const Vital Signs: 06/20/22 12:33 06/20/22 12:37 06/20/22 12:38 Temperature 98.2 F Temperature Source Temporal Pulse Rate 81 Respiratory Rate 20 H Respiratory Effort Normal Non-Labored Blood Pressure 164/104 H 164/104 H Blood Pressure Mean 124 Pulse Ox 98 Oxygen Delivery Method Room Air Heart Score History: Highly Suspicious ECG: Significant ST-Depression Age: >45 - <65 years Risk Factors: 1 or 2 Risk Factors Score: 6 MDM MDM MDM Narrative Medical decision making narrative: EKG was obtained after patient brought back to room. He has 4 to [address] elevation in leads II, III, and aVF with ST depression in aVL. He also has ST elevation 3 to 4 mm across the precordium and laterally mainly in V3 through V6. He has slight depression in lead I and also noticed in aVR. Code STEMI was activated. He was administered heparin 4000 units intravenously, aspirin 324 mg orally, and Brilinta 180 mg orally. I discussed the patient with the systems integration engineer, Dr. Randall. Additionally, I discussed the patient with Dr. Barreto for admission to the ICU. Patient is in stable but guarded condition. Lab Data Attestation: I reviewed the patient's lab results. Labs: Laboratory Results - last 24 hr 06/20/22 06/20/22 06/20/22 12:30 12:30 12:30 WBC 10.2 RBC 5.73 Hgb 16.8 H Hct 51.4 MCV 89.7 MCH 29.3 MCHC 32.7 RDW Std Deviation 49.1 H RDW Coeff of Sri 14.9 H Plt Count 310 MPV 10.4 Immature Gran % (Auto) 0.900 Neut % (Auto) 54.8 Lymph % (Auto) 30.0 [place] % (Auto) 10.8 H Eos % (Auto) 2.4 Baso % (Auto) 1.1 H Absolute Neuts (auto) 5.6 Absolute Lymphs (auto) 3.07 Nucleated RBC % 0 PT 13.7 INR 1.1 APTT 22.5 L Sodium Cancelled Potassium Cancelled Chloride Cancelled Carbon Dioxide Cancelled Anion Gap Cancelled BUN Cancelled Creatinine Cancelled Estim Creat Clear Calc Cancelled Est GFR (MDRD) Af Amer Cancelled Est GFR (MDRD) Non-Af Cancelled BUN/Creatinine Ratio Cancelled Glucose Cancelled Calcium Cancelled Troponin I High Sens Cancelled Discharge Plan Dx/Rx/DC Orders Clinical Impression: ST elevation (STEMI) myocardial infarction, Chest pain, History of posttraumatic stress disorder (PTSD) Disposition Disposition: Acute Care Hospital [facility] Discharge Date/Time: 06/20/22 12:50
[2022-06-20] MEDS: Heparin Injection (Vial) 5,000 UNIT/ML VIAL 4000 UNIT IV (12:43)
[2022-06-20] MEDS: TICAGRELOR 90 MG TABLET 180 MG PO (12:44)
[2022-06-20] MEDS: Aspirin 81 MG TAB.CHEW 324 MG PO (12:44)
[2022-06-20 12:50] LABS: Absolute Lymphocyte Count 3.07 X10^3/uL (0.83-4.51); Absolute Neutrophil Count 5.6 X10^3/uL (2.0-7.7); Basophil# 0.11 X10^3/uL; Basophil% 1.1 % (0-1); Eosinophil# 0.25 X10^3/uL; Eosinophils% 2.4 % (0-5); Hematocrit 51.4 % (40-54); Hemoglobin 16.8 g/dL (13.0-16.5); Lymphocyte # 3.07 X10^3/ul (0.83-4.51); Mean Corp Hgb Conc 32.7 g/dL (32-36); Mean Corpuscular Hgb 29.3 pg (27.0-32.0); Mean Corpuscular Volume 89.7 fL (80-94); Mean Platelet Vol. 10.4 fl (6.2-12.0); Monocyte# 1.11 X10^3/uL; Monocyte% 10.8 % (0-10); NRBC Flagged by Analyzer 0 % (0-5); Neutrophil # 5.61 X10^3/uL (2.7-7.7); Neutrophil % 54.8 % (47-70); Platelet Count 310 K/mm3 (150-450); RBC Distribution Width CV 14.9 % (11.6-14.6); RBC Distribution Width SD 49.1 fl (35.1-43.9); Red Blood Count 5.73 M/mm3 (4.6-6.2); White Blood Count 10.2 K/mm3 (4.4-11.0)
--- NOTE | 2022-06-20 12:50 | ED.RN ---
patient requesting his daughters- Sherice and Enid be informed about his condition. No further questions at this time
--- NOTE | 2022-06-20 12:53 | NURSING ---
CALLING [facility].
[2022-06-20 13:01] LABS: International Normalized Ratio 1.1; Partial Thromboplast Time 22.5 Seconds (24.1-36.2); Prothrombin Time (Protime)PT. 13.7 SECONDS (11.7-14.9)
--- NOTE | 2022-06-20 13:01 | NURSING ---
NO ANSWER AT [facility]. COULDN'T EVEN LEAVE A MESSAGE.
--- NOTE | 2022-06-20 13:22 | NURSING ---
CV ICU [address] STEMI
--- NOTE | 2022-06-20 13:28 | CM.ED ---
SW Note SW responded to STEMI alert. SW was present with patient's girlfriend,Merary, and 2 daughters. Emotional support provided. SW remains available if needs arise. Millicent DOMINGUEZ
[2022-06-20 13:33] LABS: Anion Gap 10 (5-15); BUN 10 mg/dL (7-18); BUN/Creat Ratio 8.6 RATIO (10-20); Calcium,Total 9.9 mg/dL (8.5-10.1); Chloride 102 mmol/L (98-107); Creatinine, Serum 1.16 mg/dL (0.70-1.30); EST Glomerular Filtration Rate 70 mL/min (>60); Est Glom Filt Rate - Afr Amer 85 mL/min (>60); Estimated Creatinine Clearance 74.49 ml/min; Glucose 117 mg/dL (74-106); Potassium 3.9 mmol/L (3.5-5.1); Sodium Level 137 mmol/L (136-145); Troponin-I HS 17 pg/mL (3.0-78.0)
--- NOTE | 2022-06-20 13:45 | EKG12_ITS ---
Test Reason : PCI Blood Pressure : / mmHG Vent. Rate : 070 BPM Atrial Rate : 070 BPM P-R Int : 154 ms QRS Dur : 086 ms QT Int : 402 ms P-R-T Axes : 072 011 082 degrees QTc Int : 434 ms Normal sinus rhythm Inferior-posterior infarct , age undetermined Abnormal ECG When compared with ECG of 20-JUN-2022 12:36, MANUAL COMPARISON REQUIRED, DATA IS UNCONFIRMED Confirmed by NICHELLE SALAZAR, MARY ([id number]), art editor FRANKO ORDONEZ ([id number]) on 06/21/2022 9:20:31 AM Referred By: Yoni Randall Confirmed By:MARY STEWARD MD
--- NOTE | 2022-06-20 13:52 | CON.PCM.CA_ITS ---
Assessment & Plan Assessment/Plan (1) ST elevation (STEMI) myocardial infarction: PLAN: Acute STEMI. Patient was taken emergently to the cardiac catheterization lab. Coronary angiography revealed total occlusion of the proximal first obtuse marginal branch. Successful balloon angioplasty followed with deployment of a 3.0 x 15 mm drug-eluting stent was performed. The stent was postdilated using a 3.5 mm balloon. Excellent results were noted. Continue aspirin lifelong. Plavix for at least 1 year.Start on statins. Check lipid profile. Check 2D echocardiogram with Doppler. (2) Hypertension: PLAN: Start on beta-blockers, angiotensin receptor lourdes. Also start on hydrochlorothiazide. (3) PTSD (post-traumatic stress disorder): PLAN: As per internal medicine. HPI Consult Data Date of Consult: 06/20/22 HPI Narrative HPI Narrative: JOSE PETERS, is a 51 M who presented to the emergency room with complaints of chest discomfort that started about an hour prior to presentation. No radiation to the arm neck or jaw.Positive nausea but no vomiting. In the emergency room, patient had an EKG done which showed acute inferior ST elevation myocardial infarction. Subsequently a STEMI alert was called. [facility] Medical History (Updated 06/20/22 @ 13:[address] Yoni Randall MD) Pulmonary embolism Home Medications clonazepam 2 mg tablet (Klonopin) 2 mg PO DAILY PRN PRN Anxiety 12/23/17 [History Last Taken Unknown] fluoxetine 10 mg capsule 40 mg PO DAILY 05/14/19 [History Last Taken Unknown] trazodone 50 mg tablet 150 mg PO QHS 05/14/19 [History Last Taken Unknown] vortioxetine 20 mg tablet 20 mg PO DAILY 05/14/19 [History Last Taken Unknown] Allergy/AdvReac Type Severity Reaction Status Date / Time No Known Allergies Allergy Verified 06/20/22 12:37 Social History Smoking Status: Never smoker Physical Exam Narrative Appeared anxious. Heart sounds 1 and 2 noted. Chest clear to auscultation ant eriorly. Abdomen soft. Alert oriented x3. No ankle edema. Risk Stratification Risk Stratification Applicable: No Objective Data Vital Signs: Vital Signs Temp Pulse Resp BP Pulse Ox O2 Del Method O2 Flow Rate 98.2 F 73 18 173/107 H 98 Nasal Cannula 2 06/20/22 13:07 06/20/22 13:07 06/20/22 13:07 06/20/22 13:07 06/20/22 13:07 06/20/22 13:07 06/20/22 13:07 Oxygen Flow Rate (L/min) 2 Oxygen Delivery Method Nasal Cannula Weight: 255 lb 8.252 oz Body Mass Index (BMI) 37.7 Lab / Micro Data Result Diagrams: 06/20/22 12:30 06/20/22 13:05 Labs: Laboratory Results - last 24 hr 06/20/22 12:30: WBC 10.2, RBC 5.73, Hgb 16.8 H, Hct 51.4, MCV 89.7, MCH 29.3, MCHC 32.7, RDW Std Deviation 49.1 H, RDW Coeff of Sri 14.9 H, Plt Count 310, MPV 10.4, Immature Gran % (Auto) 0.900, Neut % (Auto) 54.8, Lymph % (Auto) 30.0, [place] % (Auto) 10.8 H, Eos % (Auto) 2.4, Baso % (Auto) 1.1 H, Absolute Neuts (auto) 5.6, Absolute Lymphs (auto) 3.07, Nucleated RBC % 0 06/20/22 12:30: PT 13.7, INR 1.1, APTT 22.5 L 06/20/22 12:30: Sodium Cancelled, Potassium Cancelled, Chloride Cancelled, Carbon Dioxide Cancelled, Anion Gap Cancelled, BUN Cancelled, Creatinine Can celled, Estim Creat Clear Calc Cancelled, Est GFR (MDRD) Af Amer Cancelled, Est GFR (MDRD) Non-Af Cancelled, BUN/Creatinine Ratio Cancelled, Glucose Cancelled, Calcium Cancelled, Troponin I High Sens Cancelled 06/20/22 13:05: Sodium 137, Potassium 3.9, Chloride 102, Carbon Dioxide 25.0, Anion Gap 10, BUN 10, Creatinine 1.16, Estim Creat Clear Calc 74.49, Est GFR (MDRD) Af Amer 85, Est GFR (MDRD) Non-Af 70, BUN/Creatinine Ratio 8.6 L, Glucose 117 H, Calcium 9.9, Troponin I High Sens 17 Rhythm Strip Rhythm Strip: Sinus Rhythm Cardiology Labs/Tests 06/20/22 12:30: WBC 10.2, RBC 5.73, Hgb 16.8 H, Hct 51.4, MCV 89.7, MCH 29.3, MCHC 32.7, Plt Count 310, MPV 10.4, Immature Gran % (Auto) 0.900, Neut % (Auto) 54.8, Lymph % (Auto) 30.0, [place] % (Auto) 10.8 H, Eos % (Auto) 2.4, Baso % (Auto) 1.1 H, Absolute Neuts (auto) 5.6, Nucleated RBC % 0 06/20/22 12:30: PT 13.7, INR 1.1, APTT 22.5 L 06/20/22 12:30: Sodium Cancelled, Potassium Cancelled, Chloride Cancelled, Carbon Dioxide Cancelled, Anion Gap Cancelled, BUN Cancelled, Creatinine Cancelled, Est GFR (MDRD) Af Amer Cancelled, Est GFR (MDRD) Non-Af Cancelled, BUN/Creatinine Ratio Cancelled, Glucose Cancelled, Calcium Cancelled 06/20/22 13:05: Sodium 137, Potassium 3.9, Chloride 102, Carbon Dioxide 25.0, Anion Gap 10, BUN 10, Creatinine 1.16, Est GFR (MDRD) Af Amer 85, Est GFR (MDRD) Non-Af 70, BUN/Creatinine Ratio 8.6 L, Glucose 117 H, Calcium 9.9 Rhythm: EKG:Normal sinus rhythm. Acute inferior ST elevation injury pattern. ECHO: Stress Test: Cardiac Cath: PCI: CT Surgery: Holter monitor: EPS: PPM: CXR: Chest CT Scan:
--- NOTE | 2022-06-20 14:00 | PCM.HP.STD ---
HPI - General General Date of Admission: 06/20/22 Date of Service: 06/20/22 Chief Complaint: Chest pain that is started after lifting weights just prior to arrival. HPI Narrative JOSE PETERS, is a 51 M was brought to ED for chest pain that began after he was lifting weights prior to arrival. Patient also became diaphoretic, nauseated. No leg swelling. Patient has family history of early coronary artery disease in father. Chest pain was precordial/left-sided with no radiation to jaw or arm, probably precipitated by weightlifting with no exacerbating or relieving factor. Patient past history significant of pulmonary embolism, PTSD depression and anxiety. [facility] Medical History Pulmonary embolism Home Medications clonazepam 2 mg tablet (Klonopin) 2 mg PO DAILY PRN PRN Anxiety 12/23/17 [History Last Taken Unknown] fluoxetine 10 mg capsule 40 mg PO DAILY 05/14/19 [History Last Taken Unknown] trazodone 50 mg tablet 150 mg PO QHS 05/14/19 [History Last Taken Unknown] vortioxetine 20 mg tablet 20 mg PO DAILY 05/14/19 [History Last Taken Unknown] Allergy/AdvReac Type Severity Reaction Status Date / Time No Known Allergies Allergy Verified 06/20/22 12:37 Social History Smoking Status: Never smoker Vital Signs Vital Signs Vital Signs: 06/20/22 12:33 06/20/22 12:37 06/20/22 12:38 Temperature 98.2 F Temperature Source Temporal Pulse Rate 81 Respiratory Rate 20 H Respiratory Effort Normal Non-Labored Blood Pressure 164/104 H 164/104 H Blood Pressure Mean 124 Pulse Ox 98 Oxygen Delivery Method Room Air Oxygen Flow Rate (L/min) 06/20/22 12:50 06/20/22 13:07 Temperature 98.2 F Temperature Source Temporal Pulse Rate 73 73 Respiratory Rate 18 18 Respiratory Effort Blood Pressure 173/107 H 173/107 H Blood Pressure Mean 129 129 Pulse Ox 98 98 Oxygen Delivery Method Nasal Cannula Nasal Cannula Oxygen Flow Rate (L/min) 2 2 Weight Weight: 255 lb 8.252 oz Body Mass Index (BMI) 37.7 Results Lab / Micro Data Result Diagrams: 06/20/22 12:30 06/20/22 13:05 Labs: Laboratory Results - last 24 hr 06/20/22 12:30: WBC 10.2, RBC 5.73, Hgb 16.8 H, Hct 51.4, MCV 89.7, MCH 29.3, MCHC 32.7, RDW Std Deviation 49.1 H, RDW Coeff of Sri 14.9 H, Plt Count 310, MPV 10.4, Immature Gran % (Auto) 0.900, Neut % (Auto) 54.8, Lymph % (Auto) 30.0, [place] % (Auto) 10.8 H, Eos % (Auto) 2.4, Baso % (Auto) 1.1 H, Absolute Neuts (auto) 5.6, Absolute Lymphs (auto) 3.07, Nucleated RBC % 0 06/20/22 12:30: PT 13.7, INR 1.1, APTT 22.5 L 06/20/22 12:30: Sodium Cancelled, Potassium Cancelled, Chloride Cancelled, Carbon Dioxide Cancelled, Anion Gap Cancelled, BUN Cancelled, Creatinine Cancelled, Estim Creat Clear Calc Cancelled, Est GFR (MDRD) Af Amer Cancelled, Est GFR (MDRD) Non-Af Cancelled, BUN/Creatinine Ratio Cancelled, Glucose Cancelled, Calcium Cancelled, Troponin I High Sens Cancelled 06/20/22 13:05: Sodium 137, Potassium 3.9, Chloride 102, Carbon Dioxide 25.0, Anion Gap 10, BUN 10, Creatinine 1.16, Estim Creat Clear Calc 74.49, Est GFR (MDRD) Af Amer 85, Est GFR (MDRD) Non-Af 70, BUN/Creatinine Ratio 8.6 L, Glucose 117 H, Calcium 9.9, Troponin I High Sens 17 Rhythm Strip Rhythm Strip: Sinus Rhythm
--- NOTE | 2022-06-20 14:01 | PCM.HP.STD ---
HPI - General General Date of Admission: 06/20/22 Date of Service: 06/20/22 Chief Complaint: Chest pain HPI Narrative The patient is a 51 y/o M w/ PMHx: Obesity, Anxiety and Depression/PTSD, Hx VTE (DVT, PE) who presents to the [facility] ED on 06/20/22 with history of onset lateral upper extremities for described as an aching while he was at the gym working out at approximately 11:30 in the morning specifically biking with then intervals in between prompting to stop at approximately noon at which point he went to the store to get water and food however he then had discomfort into his midsternal chest again described as an ache rated at 10 out of 10 in severity with significant dyspnea, nausea requiring him to even stop and bone puller to dry heave with associated diaphoresis eventually prompting transition to the ED for evaluation. Work-up in the ED included T98.2, heart rate 81, BP 164/104, respiratory rate 20, 90% room air, CBC with WBC 10.2, hemoglobin 16.8, platelet 310 without marked shift, coags with PT 22.5 otherwise not marked appearing, BMP unremarkable aside glucose 117, troponin 17, EKG with sinus rhythm with [address] elevation in leads II, III and aVF with ST depressions in aVL as well as ST elevations 3 to 4 mm across the precordium and laterally mainly in V3 through V6 with slight depressions in lead I and also in aVR with STEMI code activated. Patient was administered a heparin 4000 unit IV bolus as well as aspirin full-strength and Brilinta load with 180 mg orally. Cardiology, Dr. Randall was called in and patient was transition from the ED to cardiac catheterization lab for intervention. [facility] Medical History (Updated 06/20/22 @ 14:[address] Dipika Ramirez MD) Anxiety and depression History of posttraumatic stress disorder (PTSD) Obesity Pulmonary embolism Home Medications clonazepam 2 mg tablet (Klonopin) 2 mg PO DAILY PRN PRN Anxiety 12/23/17 [History Last Taken Unknown] fluoxetine 10 mg capsule 40 mg PO DAILY 05/14/19 [History Last Taken Unknown] trazodone 50 mg tablet 150 mg PO QHS 05/14/19 [History Last Taken Unknown] vortioxetine 20 mg tablet 20 mg PO DAILY 05/14/19 [History Last Taken Unknown] Allergy/AdvReac Type Severity Reaction Status Date / Time No Known Allergies Allergy Verified 06/20/22 12:37 Family History (Updated 06/20/22 @ 14:[address] Dipika Ramirez MD) Mother Lung cancer Concurrent tobacco use history. Father CVA (cerebral vascular accident) Hypertension CAD (coronary artery disease) Early onset. Surgical History (Updated 06/20/22 @ 14:[address] Dipika Ramirez MD) H/O hernia repair Social History (Updated 06/20/22 @ 14:[address] Dipika Ramirez MD) household members: significant other Smoking Status: Never smoker alcohol intake: current alcohol intake frequency: holidays/special occasions only substance use type: does not use ROS ROS Narrative Admission Review of Systems: CONSTITUTIONAL: No weight loss, fever, chills, + weakness or fatigue. HEENT: Eyes: No visual loss, blurred vision, double vision or yellow sclerae. Ears, Nose, Throat: No hearing loss, sneezing, congestion, runny nose or sore throat. SKIN: No rash or itching, lesions, wounds. CARDIOVASCULAR:+ chest pain, chest pressure or chest discomfort, No palpitations, edema, orthopnea, syncopal events. RESPIRATORY: + shortness of breath, No cough or sputum, wheezing, hemoptysis. GASTROINTESTINAL: + nausea, vomiting, No diarrhea, abdominal pain, melena, BRBPR. GENITOURINARY: No dysuria, frequency, urgency or retention. NEUROLOGICAL: No headache, dizziness, syncope, paralysis, ataxia, numbness or tingling in the extremities, focal weakness, change in bowel or bladder control, seizure. MUSCULOSKELETAL: + muscle, back pain, joint pain or stiffness. HEMATOLOGIC: No anemia, bleeding or bruising. LYMPHATICS: No enlarged nodes. No history of splenectomy. PSYCHIATRIC: + history of depression or anxiety/PTSD. ENDOCRINOLOGIC: No reports of sweating, cold or heat intolerance. No polyuria or polydipsia. ALLERGIES: No history of asthma, hives, eczema or rhinitis. Vital Signs Vital Signs Vital Signs: 06/20/22 12:33 06/20/22 12:37 06/20/22 12:38 Temperature 98.2 F Temperature Source Temporal Pulse Rate 81 Respiratory Rate 20 H Respiratory Effort Normal Non-Labored Blood Pressure 164/104 H 164/104 H Blood Pressure Mean 124 Pulse Ox 98 Oxygen Delivery Method Room Air Oxygen Flow Rate (L/min) 06/20/22 12:50 06/20/22 13:07 Temperature 98.2 F Temperature Source Temporal Pulse Rate 73 73 Respiratory Rate 18 18 Respiratory Effort Blood Pressure 173/107 H 173/107 H Blood Pressure Mean 129 129 Pulse Ox 98 98 Oxygen Delivery Method Nasal Cannula Nasal Cannula Oxygen Flow Rate (L/min) 2 2 Weight Weight: 255 lb 8.252 oz Body Mass Index (BMI) 37.7 Physical Exam Narrative Physical Examination: General: Awake, alert, oriented x 3 and cooperative, laying on the cardiac cath table, notes chest discomfort currently improved to 3 out of 10 in severity. Skin: Normal color, normal turgor, no icterus, no cyanosis, cardiac catheterization access currently still in place. HEENT: AT/NC, EOMI, PERRLA, moderately dry MM, no carotid bruits or JVD noted; however, thickened neck makes evaluation difficult. Lungs: Mildly diminished, greater bases, appropriate effort, no rales, ronchi or wheezing. Heart: Currently regular rate and rhythm; no gallop, rub audible. Abdomen: Soft, obese, NTTP, ND, distant mildly hyperactive BS, no HSM. Extremities: No cyanosis, clubbing, or edema. Neurological: Patient awake, alert, oriented as noted, cognitive function intact; pupils equally reactive to light and accommodation, cranial nerves II-XII grossly normal, moving all 4 extremities except expected limitation given intervention, no focal deficits, strength moderately global decreased given acute presentation Psychiatric: Affect appears fatigued, anxious, no acute evidence of depressive feelings. Results Lab / Micro Data Result Diagrams: 06/20/22 12:30 06/20/22 13:05 Labs: Laboratory Results - last 24 hr 06/20/22 12:30: WBC 10.2, RBC 5.73, Hgb 16.8 H, Hct 51.4, MCV 89.7, MCH 29.3, MCHC 32.7, RDW Std Deviation 49.1 H, RDW Coeff of Sri 14.9 H, Plt Count 310, MPV 10.4, Immature Gran % (Auto) 0.900, Neut % (Auto) 54.8, Lymph % (Auto) 30.0, [place] % (Auto) 10.8 H, Eos % (Auto) 2.4, Baso % (Auto) 1.1 H, Absolute Neuts (auto) 5.6, Absolute Lymphs (auto) 3.07, Nucleated RBC % 0 06/20/22 12:30: PT 13.7, INR 1.1, APTT 22.5 L 06/20/22 12:30: Sodium Cancelled, Potassium Cancelled, Chloride Cancelled, Carbon Dioxide Cancelled, Anion Gap Cancelled, BUN Cancelled, Creatinine Cancelled, Estim Creat Clear Calc Cancelled, Est GFR (MDRD) Af Amer Cancelled, Est GFR (MDRD) Non-Af Cancelled, BUN/Creatinine Ratio Cancelled, Glucose Cancelled, Calcium Cancelled, Troponin I High Sens Cancelled 06/20/22 13:05: Sodium 137, Potassium 3.9, Chloride 102, Carbon Dioxide 25.0, Anion Gap 10, BUN 10, Creatinine 1.16, Estim Creat Clear Calc 74.49, Est GFR (MDRD) Af Amer 85, Est GFR (MDRD) Non-Af 70, BUN/Creatinine Ratio 8.6 L, Glucose 117 H, Calcium 9.9, Troponin I High Sens 17 Rhythm Strip Rhythm Strip: Sinus Rhythm Assessment & Plan Assessment/Plan (1) ST elevation (STEMI) myocardial infarction: PLAN: Plan The patient is a 51 y/o M w/ PMHx: Obesity, Anxiety and Depression/PTSD, Hx VTE (DVT, PE) who presents to the [facility] ED on 06/20/22 with history of onset lateral upper extremities for described as an aching while he was at the gym working out at approximately 11:30 in the morning specifically biking with then intervals in between prompting to stop at approximately noon at which point he went to the store to get water and food however he then had discomfort into his midsternal chest. #1. Chest Pain w/ Acute Inferior STEMI: ED evaluation with troponin 17, EKG with sinus rhythm with [address] elevation in leads II, III and aVF with ST depressions in aVL as well as ST elevations 3 to 4 mm across the precordium and laterally mainly in V3 through V6 with slight depressions in lead I and aVR. Will admit to the ICU following completion cardiac catheterization, current . We will continue per cardiology discretion aspirin 81 mg daily, Plavix 75 mg daily, atorvastatin 40 mg nightly, Coreg 3.125 mg p.o. twice daily, hydrochlorothiazide 25 mg p.o. daily, losartan 25 mg p.o. daily, maintain on a monitored bed, continue serial cardiac enzymes and EKGs, obtain magnesium level upon admission, ECHO requested, FLP in AM, judicious hydration given recent catheterization. ASA, NG, morphine. #2. Elevated BP without prior HTN history: Given acute presentation as noted #1 patient per cardiology discretion initiated on low-dose Coreg, hydrochlorothiazide and losartan as noted with further adjustments pending response, as needed IV hydralazine also in interim. #3. Reported history VTE: Reported history DVT, PE remotely in 2017 with discharge summary report noting anticoagulation panel ordered at that time per neurology with plan to follow-up outpatient in their office as at that time he had concurrent neurological presentation however MRI was unremarkable. Patient denies any history of hypercoagulable state upon evaluation. #4. Anxiety and depression/PTSD: We will continue patient home Klonopin, fluoxetine, trazodone. #5. Obesity: Weight loss and lifestyle changes encouraged. #6. DVT prophylaxis: SCDs, administered heparin bolus upon presentation, as long as no concerns from wrist access from cardiac catheterization in a.m. would initiate on Lovenox chemoprophylaxis. Charges/Coding Visit Charges Inpatient E&M: 69031 Init Hosp L3
--- NOTE | 2022-06-20 14:07 | CL.I_ITS ---
Patient Name: JOSE PETERS Study Date: 06/20/2022 Performing: Yoni Randall MD Ht: 69 inches 175.26 cm : 1970 Wt: 255.52 lbs 115.9 kg Age: 51 Gender: male BSA: 2.29 PROCEDURE(S) PERFORMED DC01-(65527)LHC/COR/LV IC16-([id number]/[id number])AMI, [place] OR PTCA, ARTERY/GRAFT, SINGLE VESSEL CLINICAL PROFILE AND CO-MORBIDITIES Indications: ACS <= 24 hrs Heart Failure: None CAD Presentations: STEMI. Symptom onset Date/Time: Time Not Available CONCLUSIONS 100% Prox OM1 Mild luminal irregularities LAD 40-50% Prox RCA LVEF 55-60% Successful PTCA/[place] Prox OM1 using Resolute [place] 3.0x15 mm, post-dilated using 3.5 mm balloon RECOMMENDATIONS ASA Indefinitley Plavix for at least 12 months DESCRIPTION OF PROCEDURE The patient arrived to the procedure lab. The risks and benefits of the procedure as well as a full description of our services here and lack of surgical backup were fully explained to the patient and/or their significant other prior to the catheterization. The Timeout was completed, verifying the correct patient and procedure. The patient's procedural site was prepped and draped in the usual fashion. Local anesthetic was given subcutaneously to right radial region with Lidocaine 2%. Using a modified Seldinger technique, and ultrasound guidance,arterial access was obtained via the right radial artery, a 6Fr sheath was inserted., arterial access was obtained via the right radial artery, a 6Fr sheath was inserted.. Left Coronary Artery selective angiography was performed in multiple views using a 5 Fr. 4.0 [place] catheter. Right Coronary Artery selective angiography was then performed in multiple views using a 6 Fr. JR 4 catheter. Left Ventriculography was performed in KWAN projection using a 5 Fr. Pigtail catheter. LV to AO pullback pressures were then recordedThe images were reviewed and options discussed. A decision was then made to proceed with an Intervention, IVUS or other adjunct procedure. XB 3.0 Guide catheter was inserted and engaged into the LCA. Runthrough Guide wire was advanced to the 1st OM. 2.5 x 15 Emerge Balloon catheter was inserted. Balloon catheter was advanced across lesion in the first obtuse marginal, proximal. PTCA balloon inflated at 6 atms for 15 secs. 3.0 x 15 [place] Drug Eluting stent was inserted. Drug Eluting stent was advanced across the lesion in the first obtuse marginal, proximal. Angiogram performed pre stent deployment. Angiogram performed post stent deployment. 3.5 x 15 NC Emerge Balloon catheter was inserted post stent. Angiogram performed post balloon dilatation. The arterial sheath was pulled and a TR Band was applied for hemostasis. 10cc air inserted. CORONARY ANGIOGRAPHY DOMINANCE: Right Dominant LEFT HEART ASSESSMENT Left Ventricular Ejection Fraction: by LV Gram 60 % LVEDP: 18 mmHg LEFT ANTERIOR DESCENDING ARTERY: LAD: Luminal Irregularities 10% Proximal lesion in LAD OM 1: Complex 50% Proximal lesion in 1st OM RIGHT CORONARY ARTERY: RCA: Tubular 50% Proximal lesion in RCA INTERVENTION INFORMATION LESION SITE: 1st OM (Proximal) Lesion Complexity: High/C, thrombus present: Yes, lesion length: 13 mm, culprit lesion: Yes Pre Stenosis: 100 % Pre intervention AKANKSHA flow: 0 PROCEDURE: Drug Eluting Stent with pre and post dilatation Post Stenosis: 0 % Post intervention AKANKSHA flow: 3 Lesion Devices: Cordis 6 Fr XB3.0 100cm Guide Catheter Terumo .014 Runthrough Extra Floppy 180cm straight [place] Sci EMERGE MR 2.50x15 BALLOON Medtronic Resolute [place] RX [place] 3.0x15 [place] Sci NC EMERGE MR 3.50x15 BALLOON COMPLICATIONS No Complications PROCEDURE MEDICATIONS Fentanyl 50 mcg IV Versed 2 mg IV Fentanyl 50 mcg IV Versed 2 mg IV Oxygen: 2 L/min via nasal cannula Heparin 8000 unit(s) IV 06/20/2022 13:12:38 Heparin 6000 unit(s) IV 06/20/2022 13:38:16 Nitro 200 mcg IC 06/20/2022 13:23:37 Verapamil 2.5mg, Ntg 200mcgs, given IA 06/20/2022 13:07:21 SUMMARY OF HEMODYNAMIC DATA Time AIR REST ECG 12:56:09 AO 162/129 (144) SA 13:10:18 LV 157/12, 22 13:36:03 LV 162/9, 21 13:36:11 LVp 158/12, 22 13:37:52 AOp 147/96 (115) 13:37:59 Signed By Yoni Randall MD On 06/20/2022 14:07:15 Yoni Randall MD
[2022-06-20] MEDS: 0.9% Normal Saline 1,000 ML 150 ML IV (14:41)
[2022-06-20 14:55] LABS: Magnesium 1.8 mg/dL (1.6-2.6)
[2022-06-20] MEDS: Carvedilol 3.125 MG TABLET PO ×2 (15:10→19:41)
[2022-06-20] MEDS: hydroCHLOROthiazide 25 MG Tablet PO (15:10)
--- NOTE | 2022-06-20 15:15 | CRPHASE1_ITS ---
Patient Communication PHII Cardiac Rehab Discussed with Patient:: Yes Guide to Cardiac Rehab Given to Patient:: Yes Cardiac Rehab Facility Choice List Given to Patient:: Yes Choice Program [facility] PHII:: Communication Given to CR Film Replacement Orderer:: Yoni Randall Phase II Cardiac Rehab:: Yes Sessions:: 36 sessions - 3 days/wk, 12 weeks Cardiac Rehabilitation Info Cardiac Rehabilitation Program Information: Cardiac Rehabilitation is important for patients like you who are recovering from a heart problem. Cardiac rehabilitation programs are recognized as integral to the continued care of the patient with coronary heart disease. The cardiac rehabilitation program is designed to optimize a patient's physical, psychological, and social functioning. Health janitor caretaker work in cardiac rehabilitation programs and assist you with getting the treatments you need to get stronger and healthier - like exercise, healthy eating habits, and medications. Cardiac rehabilitation has been show to help people with heart problems live longer and have better life enjoyment than people who do not go to cardiac rehabilitation. Please contact the Cardiac Rehabilitation Program at [facility] at in two weeks if you have not heard from them.
--- NOTE | 2022-06-20 15:16 | CRPH1.INSTRU ---
General Education CAD and cardiac anatomy and function:: Patient communicates acknowledgment, Family communicates acknowledgment, Needs reinforcement Explanation of diagnoses and procedures:: Patient communicates acknowledgment, Family communicates acknowledgment, Needs reinforcement Sign/Symptoms of PA:: Patient communicates acknowledgment, Family communicates acknowledgment, Needs reinforcement Antiplatelet therapy: Patient communicates acknowledgment, Family communicates acknowledgment, Needs reinforcement Proper use of NTG-SL: Patient communicates acknowledgment, Family communicates acknowledgment, Needs reinforcement Emergency procedures and activation of EMS: Patient communicates acknowledgment, Family communicates acknowledgment, Needs reinforcement Compliance of all prescribed medications: Patient communicates acknowledgment, Family communicates acknowledgment, Needs reinforcement Smoking Patient Nicotine/Smoking Risk Factors Are:: Non-smoker Dyslipidemia Recommendations Include:: Lipid profile not available Dyslipidemia Response Code:: Patient communicates acknowledgment, Family communicates acknowledgment, Needs reinforcement Overweight/Obesity Patient Overweight/Obesity Risk Factors Are:: Obesity - > or = 30 Recommendations Include:: Weight loss of 5-10%, Reduced calorie diet, Exercise 5-7 times/week Overweight/Obesity:: Patient communicates acknowledgment, Family communicates acknowledgment, Needs reinforcement Hypertension Recommendations Include:: Maintain BP <130/85, Decrease/maintain normal body weight Hypertension:: Patient communicates acknowledgment, Family communicates acknowledgment, Needs reinforcement Diabetes Patient Diabetes Risk Factors Are:: No documented hx of diabetes
[2022-06-20 16:14] LABS: Troponin-I HS 24064 pg/mL (3.0-78.0)
[2022-06-20 16:47] LABS: ACT Activated Clotting Time 190 sec (74-137)
[2022-06-20 16:47] LABS: ACT Activated Clotting Time 126 sec (74-137)
[2022-06-20 16:48] LABS: ACT Activated Clotting Time 242 sec (74-137)
[2022-06-20] MEDS: clonazePAM 1 MG Tablet 2 MG PO (19:21)
--- NOTE | 2022-06-20 19:21 | NURSING ---
Pt very anxious. Pt requesting something to help relax. Klonopin po given. Family at bedside. Family requesting to spend the night. Informed them about hospital policy. Pt then c/o chest discomfort morphine given
[2022-06-20] MEDS: Morphine 4 MG/ML Syringe IV (19:36)
[2022-06-20] MEDS: Atorvastatin Calcium 40 MG Tablet PO (19:41)
[2022-06-20] MEDS: Losartan Potassium 25 MG Tablet PO ×2 (19:41→21:47)
[2022-06-20] MEDS: Clopidogrel Bisulfate 300 MG Tablet PO (19:41)
[2022-06-20] MEDS: traZODone 50 MG Tablet 150 MG PO (21:47)
[2022-06-21] VITALS (18 sets, daily range): BP systolic 106–147; BP diastolic 65–91; PULSE 62–93; RESP 12–18; TEMP 36.5–36.8; O2SAT 93–98
[2022-06-21 04:06] LABS: Hematocrit 47.5 % (40-54); Hemoglobin 15.5 g/dL (13.0-16.5); Mean Corp Hgb Conc 32.6 g/dL (32-36); Mean Corpuscular Hgb 29.2 pg (27.0-32.0); Mean Corpuscular Volume 89.5 fL (80-94); Mean Platelet Vol. 10.2 fl (6.2-12.0); Platelet Count 263 K/mm3 (150-450); RBC Distribution Width CV 14.7 % (11.6-14.6); RBC Distribution Width SD 48.2 fl (35.1-43.9); Red Blood Count 5.31 M/mm3 (4.6-6.2); White Blood Count 13.2 K/mm3 (4.4-11.0)
[2022-06-21 04:26] LABS: AST(SGOT) 286 U/L (15-37); Alanine Aminotransfer ALT/SGPT 114 U/L (16-61); Albumin, Serum 3.4 g/dL (3.2-5.0); Alkaline Phosphatase 53 U/L (45-117); Anion Gap 6 (5-15); BUN 11 mg/dL (7-18); BUN/Creat Ratio 10.3 RATIO (10-20); Calcium,Total 9.1 mg/dL (8.5-10.1); Chloride 101 mmol/L (98-107); Cholesterol 170 mg/dL (200); Creatinine, Serum 1.07 mg/dL (0.70-1.30); EST Glomerular Filtration Rate 77 mL/min (>60); Est Glom Filt Rate - Afr Amer 93 mL/min (>60); Estimated Creatinine Clearance 78.13 ml/min; Globulin 3.3 g/dL (2.2-4.2); Glucose 103 mg/dL (74-106); High Density Lipoprotein 27 mg/dL; Potassium 4.1 mmol/L (3.5-5.1); Protein, Total 6.7 g/dL (6.4-8.2); Sodium Level 136 mmol/L (136-145); Triglycerides 128 mg/dL; Very Low Density Lipoprotein 26 mg/dL (5-40)
[2022-06-21] MEDS: hydroCHLOROthiazide 25 MG Tablet PO (08:24)
[2022-06-21] MEDS: Losartan Potassium 25 MG Tablet PO (08:24)
[2022-06-21] MEDS: Aspirin E.C. 81 MG Tablet PO (08:24)
[2022-06-21] MEDS: Carvedilol 3.125 MG TABLET PO (08:24)
[2022-06-21] MEDS: Clopidogrel Bisulfate 75 MG Tablet PO (08:24)
[2022-06-21] MEDS: Fluoxetine HCl 40 MG CAPSULE PO (08:25)
--- NOTE | 2022-06-21 08:27 | PCM.PN.HOSP ---
Subjective Subjective Follow-up for anterior lateral and inferior STEMI Patient had uneventful night. Chest pain has resolved. Objective Data Objective Data Vital Signs: Vital Signs Temp Pulse Resp BP Pulse Ox O2 Del Method O2 Flow Rate 97.9 F 65 16 128/65 H 97 Room Air 2 06/21/22 04:00 06/21/22 08:00 06/21/22 08:00 06/21/22 08:00 06/21/22 08:00 06/21/22 08:00 06/20/22 13:07 Oxygen Flow Rate (L/min) 2 Oxygen Delivery Method Room Air Weight: 254 lb 10.142 oz Body Mass Index (BMI) 37.8 Intake & Output: Intake and Output for Last 24 Hours 06/19/22 06/20/22 06/21/22 23:59 23:59 23:59 Intake Total 1360 / 1360 240 / 240 Output Total 700 / 700 1100 / 1100 Balance 660 / 660 -860 / -860 Lab / Micro Data Result Diagrams: 06/21/22 03:55 06/21/22 03:55 Labs: Laboratory Results - last 24 hr 06/20/22 12:30: WBC 10.2, RBC 5.73, Hgb 16.8 H, Hct 51.4, MCV 89.7, MCH 29.3, MCHC 32.7, RDW Std Deviation 49.1 H, RDW Coeff of Sri 14.9 H, Plt Count 310, MPV 10.4, Immature Gran % (Auto) 0.900, Neut % (Auto) 54.8, Lymph % (Auto) 30.0, [place] % (Auto) 10.8 H, Eos % (Auto) 2.4, Baso % (Auto) 1.1 H, Absolute Neuts (auto) 5.6, Absolute Lymphs (auto) 3.07, Nucleated RBC % 0 06/20/22 12:30: PT 13.7, INR 1.1, APTT 22.5 L 06/20/22 13:05: Sodium 137, Potassium 3.9, Chloride 102, Carbon Dioxide 25.0, Anion Gap 10, BUN 10, Creatinine 1.16, Estim Creat Clear Calc 74.49, Est GFR (MDRD) Af Amer 85, Est GFR (MDRD) Non-Af 70, BUN/Creatinine Ratio 8.6 L, Glucose 117 H, Calcium 9.9, Troponin I High Sens 17 06/20/22 13:05: Magnesium 1.8, Troponin I High Sens Cancelled 06/20/22 13:12: Activated Clotting Time 126 06/20/22 13:34: Activated Clotting Time 190 H 06/20/22 13:43: Activated Clotting Time 242 H 06/20/22 15:10: Troponin I High Sens [id number] H* 06/20/22 18:05: Troponin I High Sens [id number] H* 06/21/22 03:55: WBC 13.2 H, RBC 5.31, Hgb 15.5, Hct 47.5, MCV 89.5, MCH 29.2, MCHC 32.6, RDW Std Deviation 48.2 H, RDW Coeff of Sri 14.7 H, Plt Count 263, MPV 10.2 06/21/22 03:55: Sodium 136, Potassium 4.1, Chloride 101, Carbon Dioxide 29.0, Anion Gap 6, BUN 11, Creatinine 1.07, Estim Creat Clear Calc 78.13, Est GFR (MDRD) Af Amer 93, Est GFR (MDRD) Non-Af 77, BUN/Creatinine Ratio 10.3, Glucose 103, Calcium 9.1, Total Bilirubin 0.90, AST 286 H, ALT 114 H, Alkaline Phosphatase 53, Total Protein 6.7, Albumin 3.4, Globulin 3.3, Albumin/Globulin Ratio 1.0, Triglycerides 128, Cholesterol 170, LDL Cholesterol 117, VLDL Cholesterol 26, HDL Cholesterol 27 L Rhythm Strip Rhythm Strip: Sinus Rhythm Physical Exam Narrative General: Alert, Oriented x3, Cooperative HEENT: Atraumatic, PERRLA, EOMI, Normocephalic Oral: No Gingival or Mucosal Lesions/ Ulcerations Neck: Supple, No JVD, Negative Carotid Bruits Lungs: Air entry diminished in bilateral lung bases. No crepitation/rhonchi Cardiovascular: Regular rate, Regular Rhythm, Normal S1, Normal S2, No murmurs Abdomen: Bowel Sounds Present, Soft, Non Tender, Non-Distended : No renal angle tenderness. No suprapubic tenderness. Extremities: No edema, Capillary Refill Less than 3 Seconds Skin: Right radial artery access site, no hematoma or bruise. Musculoskeletal: No Tenderness to Palpation of Joints or Extremities. ROM full and adequate. Neurological: Cranial nerves II-XII grossly intact, DTR 2+/4 and Symmetrical, Neuro grossly intact Psych/Mental Status: Normal Affect, Appropriate. Assessment & Plan Assessment/Plan (1) ST elevation (STEMI) myocardial infarction: PLAN: Plan This 51-year-old question gentleman was admitted with midsternal chest heaviness/tightness and EKG finding of STEMI. The patient felt lightheaded while lifting weights in gym and thereafter while driving he felt chest tightness and heaviness and a squeezing sensation in bilateral upper extremities and numbness. 1. Acute posterior lateral inferior STEMI: Twelve-lead EKG from ER and previous EKG reviewed. It shows ST elevation in V4 to V6 along with inferior leads and ST depression in aVR. Patient was taken to [facility] as a STEMI protocol and had PCI in proximal first OM1. Repeat EKG after procedure shows Q waves in inferior and lateral leads but resolution of ST elevation in lateral and inferior leads suggestive of posterior lateral and inferior infarct. Patient is on aspirin lifelong. Plavix for 1 year. High intensity statin. Started on low-dose Coreg and ARB. Fasting profile shows LDL 117, TG 128, TC 170 and HDL 27. Glucose 103. A1c ordered 2. Hypertension: Continue medications. Started on hydrochlorothiazide. 3. History of VTE/PE in 2017: Patient denies history of hereditary hypercoagulable state. He completed anticoagulation treatment. 4. Anxiety, depression and PTSD: Patient on Klonopin fluoxetine and trazodone. 5. VTE prophylaxis: SCD. Patient had heparin bolus during procedure. On Lovenox. Laboratory Results 06/20/22 12:30: WBC 10.2, RBC 5.73, Hgb 16.8 H, Hct 51.4, MCV 89.7, MCH 29.3, MCHC 32.7, RDW Std Deviation 49.1 H, RDW Coeff of Sri 14.9 H, Plt Count 310, MPV 10.4, Immature Gran % (Auto) 0.900, Neut % (Auto) 54.8, Lymph % (Auto) 30.0, Curry % (Auto) 10.8 H, Eos % (Auto) 2.4, Baso % (Auto) 1.1 H, Absolute Neuts (auto) 5.6, Absolute Lymphs (auto) 3.07, Nucleated RBC % 0 06/20/22 12:30: PT 13.7, INR 1.1, APTT 22.5 L 06/20/22 13:05: Sodium 137, Potassium 3.9, Chloride 102, Carbon Dioxide 25.0, Anion Gap 10, BUN 10, Creatinine 1.16, Estim Creat Clear Calc 74.49, Est GFR (MDRD) Af Amer 85, Est GFR (MDRD) Non-Af 70, BUN/Creatinine Ratio 8.6 L, Glucose 117 H, Calcium 9.9, Troponin I High Sens 17 06/20/22 13:05: Magnesium 1.8, T 06/20/22 13:12: Activated Clotting Time 126 06/20/22 13:34: Activated Clotting Time 190 H 06/20/22 13:43: Activated Clotting Time 242 H 06/20/22 15:10: Troponin I High Sens [id number] H* 06/20/22 18:05: Troponin I High Sens [id number] H* 06/21/22 03:55: WBC 13.2 H, RBC 5.31, Hgb 15.5, Hct 47.5, MCV 89.5, MCH 29.2, MCHC 32.6, RDW Std Deviation 48.2 H, RDW Coeff of Sri 14.7 H, Plt Count 263, MPV 10.2 06/21/22 03:55: Sodium 136, Potassium 4.1, Chloride 101, Carbon Dioxide 29.0, Anion Gap 6, BUN 11, Creatinine 1.07, Estim Creat Clear Calc 78.13, Est GFR (MDRD) Af Amer 93, Est GFR (MDRD) Non-Af 77, BUN/Creatinine Ratio 10.3, Glucose 103, Calcium 9.1, Total Bilirubin 0.90, AST 286 H, ALT 114 H, Alkaline Phosphatase 53, Total Protein 6.7, Albumin 3.4, Globulin 3.3, Albumin/Globulin Ratio 1.0, Triglycerides 128, Cholesterol 170, LDL Cholesterol 117, VLDL Cholesterol 26, HDL Cholesterol 27 L
[2022-06-21 09:17] LABS: Hemoglobin A1c 5.9 % (3.8-5.6)
--- NOTE | 2022-06-21 09:43 | PCM.PN.CARD ---
Subjective Subjective Doing good this morning. No complaints of chest pain or shortness of breath. Ambulating. Objective Data Vital Signs: Vital Signs Temp Pulse Resp BP Pulse Ox O2 Del Method O2 Flow Rate 97.9 F 71 18 128/65 H 96 Room Air 2 06/21/22 04:00 06/21/22 09:00 06/21/22 09:00 06/21/22 09:00 06/21/22 09:00 06/21/22 09:00 06/20/22 13:07 Oxygen Flow Rate (L/min) 2 Oxygen Delivery Method Room Air Weight: 254 lb 10.142 oz Body Mass Index (BMI) 37.8 Intake & Output: Intake and Output for Last 24 Hours 06/19/22 06/20/22 06/21/22 23:59 23:59 23:59 Intake Total 1360 / 1360 240 / 240 Output Total 700 / 700 1100 / 1100 Balance 660 / 660 -860 / -860 Lab / Micro Data Result Diagrams: 06/21/22 03:55 06/21/22 03:55 Labs: Laboratory Results - last 24 hr 06/20/22 12:30: WBC 10.2, RBC 5.73, Hgb 16.8 H, Hct 51.4, MCV 89.7, MCH 29.3, MCHC 32.7, RDW Std Deviation 49.1 H, RDW Coeff of Sri 14.9 H, Plt Count 310, MPV 10.4, Immature Gran % (Auto) 0.900, Neut % (Auto) 54.8, Lymph % (Auto) 30.0, [place] % (Auto) 10.8 H, Eos % (Auto) 2.4, Baso % (Auto) 1.1 H, Absolute Neuts (auto) 5.6, Absolute Lymphs (auto) 3.07, Nucleated RBC % 0 06/20/22 12:30: PT 13.7, INR 1.1, APTT 22.5 L 06/20/22 12:30: Sodium Cancelled, Potassium Cancelled, Chloride Cancelled, Carbon Dioxide Cancelled, Anion Gap Cancelled, BUN Cancelled, Creatinine Cancelled, Estim Creat Clear Calc Cancelled, Est GFR (MDRD) Af Amer Cancelled, Est GFR (MDRD) Non-Af Cancelled, BUN/Creatinine Ratio Cancelled, Glucose Cancelled, Calcium Cancelled, Troponin I High Sens Cancelled 06/20/22 13:05: Sodium 137, Potassium 3.9, Chloride 102, Carbon Dioxide 25.0, Anion Gap 10, BUN 10, Creatinine 1.16, Estim Creat Clear Calc 74.49, Est GFR (MDRD) Af Amer 85, Est GFR (MDRD) Non-Af 70, BUN/Creatinine Ratio 8.6 L, Glucose 117 H, Calcium 9.9, Troponin I High Sens 17 06/20/22 13:05: Magnesium 1.8, Troponin I High Sens Cancelled 06/20/22 13:12: Activated Clotting Time 126 06/20/22 13:34: Activated Clotting Time 190 H 06/20/22 13:43: Activated Clotting Time 242 H 06/20/22 15:10: Troponin I High Sens [id number] H* 06/20/22 18:05: Troponin I [place] Sens [id number] H* 06/21/22 03:55: WBC 13.2 H, RBC 5.31, Hgb 15.5, Hct 47.5, MCV 89.5, MCH 29.2, MCHC 32.6, RDW Std Deviation 48.2 H, RDW Coeff of Sri 14.7 H, Plt Count 263, MPV 10.2 06/21/22 03:55: Sodium 136, Potassium 4.1, Chloride 101, Carbon Dioxide 29.0, Anion Gap 6, BUN 11, Creatinine 1.07, Estim Creat Clear Calc 78.13, Est GFR (MDRD) Af Amer 93, Est GFR (MDRD) Non-Af 77, BUN/Creatinine Ratio 10.3, Glucose 103, Calcium 9.1, Total Bilirubin 0.90, AST 286 H, ALT 114 H, Alkaline Phosphatase 53, Total Protein 6.7, Albumin 3.4, Globulin 3.3, Albumin/Globulin Ratio 1.0, Triglycerides 128, Cholesterol 170, LDL Cholesterol 117, VLDL Cholesterol 26, HDL Cholesterol 27 L 06/21/22 03:55: Hemoglobin A1c 5.9 H Rhythm Strip Rhythm Strip: 4 beat run of nonsustained VT yesterday in the evening. NSR since Cardiology Labs/Tests 06/20/22 12:30: WBC 10.2, RBC 5.73, Hgb 16.8 H, Hct 51.4, MCV 89.7, MCH 29.3, MCHC 32.7, Plt Count 310, MPV 10.4, Immature Gran % (Auto) 0.900, Neut % (Auto) 54.8, Lymph % (Auto) 30.0, [place] % (Auto) 10.8 H, Eos % (Auto) 2.4, Baso % (Auto) 1.1 H, Absolute Neuts (auto) 5.6, Nucleated RBC % 0 06/20/22 12:30: PT 13.7, INR 1.1, APTT 22.5 L 06/20/22 12:30: Sodium Cancelled, Potassium Cancelled, Chloride Cancelled, Carbon Dioxide Cancelled, Anion Gap Cancelled, BUN Cancelled, Creatinine Cancelled, Est GFR (MDRD) Af Amer Cancelled, Est GFR (MDRD) Non-Af Cancelled, BUN/Creatinine Ratio Cancelled, Glucose Cancelled, Calcium Cancelled 06/20/22 13:05: Sodium 137, Potassium 3.9, Chloride 102, Carbon Dioxide 25.0, Anion Gap 10, BUN 10, Creatinine 1.16, Est GFR (MDRD) Af Amer 85, Est GFR (MDRD) Non-Af 70, BUN/Creatinine Ratio 8.6 L, Glucose 117 H, Calcium 9.9 06/20/22 13:05: Magnesium 1.8 06/21/22 03:55: WBC 13.2 H, RBC 5.31, Hgb 15.5, Hct 47.5, MCV 89.5, MCH 29.2, MCHC 32.6, Plt Count 263, MPV 10.2 06/21/22 03:55: Sodium 136, Potassium 4.1, Chloride 101, Carbon Dioxide 29.0, Anion Gap 6, BUN 11, Creatinine 1.07, Est GFR (MDRD) Af Amer 93, Est GFR (MDRD) Non-Af 77, BUN/Creatinine Ratio 10.3, Glucose 103, Calcium 9.1, Total Bilirubin 0.90, Triglycerides 128, Cholesterol 170, LDL Cholesterol 117, VLDL Cholesterol 26, HDL Cholesterol 27 L 06/21/22 03:55: Hemoglobin A1c 5.9 H Rhythm: EKG: ECHO: Stress Test: Cardiac Cath: PCI: CT Surgery: Holter monitor: EPS: PPM: CXR: Chest CT Scan: Physical Exam Narrative No carotid bruit. Heart sounds 1 and 2 are normal. No murmurs or rubs. Chest clear to auscultation bilaterally. Abdomen soft. Alert oriented x3. No ankle edema. Right radial pulse 2+. Assessment & Plan Assessment/Plan (1) ST elevation (STEMI) myocardial infarction: PLAN: Stable. Asymptomatic. Continue medications. (2) Hypertension: PLAN: Controlled. (3) PTSD (post-traumatic stress disorder): PLAN: As per internal medicine. (4) Elevated liver enzymes: PLAN: Secondary to #1 above. Patient gives history of previously elevated AST/ALT as well. As we are starting the patient on atorvastatin, will need to monitor ALT/AST closely. PLAN: Plan Patient continues to be stable, then may DC home this afternoon/evening. Follow-up as outpatient.
--- NOTE | 2022-06-21 11:29 | PCM.DC ---
Discharge Instructions Diet Discharge Diet: Low fat / Low cholesterol and 2000 mg Sodium Diet Activity Discharge Activity: Return to Normal Activity Dressing / Incision Call your doctor if you observe: Fever of 101 or Higher, Numbness or Tingling, Change in Color, Inability to urinate, Inability to have a bowel movement, Shortness of breath, Dizziness, Fainting spells, Swelling in the ankles, Chest pain, Prolonged hiccupping, Increased palpitations (irregular heartbeat), Calf discomfort and Uncontrolled pain Follow Up Care Test Results: Test results from this visit will be discussed in further detail at your follow-up appointment, if applicable. Discharge Plan Admission Admit Date/Time: 06/20/22 14:01 Primary Reason for Your Visit: Posterior lateral STEMI Attending Provider: Ariel Barreto Primary Care Provider: [facility] Consulting Providers: Yoni Randall Instructions Additional Instructions / Restrictions: Hold HCTZ if systolic blood pressure less than 120 mmHg. Discharge Orders/Prescriptions Prescriptions: New atorvastatin 40 mg Tablet 40 mg PO QHS Qty: 30 2RF sennosides-docusate sodium [Stool Softener-Stimulant Laxat] 8.6-50 mg Tablet 2 tab PO BID PRN PRN (Reason: Constipation) Qty: 0 0RF clopidogrel 75 mg Tablet 75 mg PO DAILY Qty: 30 2RF aspirin 81 mg Tablet,Delayed Release (Dr/Ec) 81 mg PO BREAKFAST Qty: 30 2RF carvedilol 3.125 mg Tablet 3.125 mg PO BID Qty: 60 1RF losartan 25 mg Tablet 25 mg PO DAILY Qty: 30 2RF nitroglycerin 0.4 mg Tablet, Sublingual 0.4 mg sublingual Q5M PRN (Reason: Cardiac/Chest Pain) Qty: 30 0RF hydrochlorothiazide 25 mg Tablet 25 mg PO DAILY Qty: 30 2RF Continued clonazepam [Klonopin] 2 MG tablet 2 mg PO DAILY PRN PRN (Reason: Anxiety) trazodone 50 MG tablet 150 mg PO QHS fluoxetine 10 MG capsule 40 mg PO DAILY Label Comments: TAKE 2 CAPSULES ORALLY DAILY FIRST 5 DAYS ONLY 1 CAPS Discontinued propranolol [Inderal] 20 mg Tablet 20 mg PO TID PRN (Reason: Anxiety) Referrals / Follow Up: Yoni Randall MD [Med Staff - Active Staff] - Within 2 Weeks [facility] [Primary Care Provider] - Disposition Disposition (needs filled in before D/C Order can be placed): Home, Self Care
--- NOTE | 2022-06-21 11:35 | CASEMGMT ---
RN CM Face to Face with patient for initial transition planning/care coordination assessment. RN CM introduced self and role at [facility]. Patient lying in bed, alert and oriented, family at beside. Patient willing to participate in assessment and is able to answer all questions appropriately. Care providers, pharmacy, and demographics verified. Patient wishes to discharge home, denies need for home health at this time. Patient states he has no further needs or concerns at this time. CM to follow for discharge planning needs that may arise. PCP: Riya Acharya [place] Specialists: [facility], [facility] at discharge [place] Living Will/HPOA: yes, children LNOK: daughters, girlfriend Living Arrangements: Patient lives with girlfriend in a 2 story home. Patient states he is independent and able to ambulate stairs. Transportation: self, children DME/HHC: Patient denies DME in the home. No previous HHC Disposition Plan: Patient to discharge home with family support and follow-up plans in place. Roslyn KIRBYN, RN, CM
--- NOTE | 2022-06-21 12:43 | DS.PCM_ITS ---
Providers Date of Admission: 06/20/22 Date of Discharge: 06/21/22 Primary Care Physician: OR Hospital Consultations 06/20/22 14:25 Consult: Cardiology Routine Consulting Provider: Yoni Randall Reason for Consult: STEMI EMERGENT Consult: Yes MD Notified: Yes Date Notified: 06/20/22 Time Notified: 14:04 Method of Notification: STEMI call Reason For Visit: STEMI Diagnosis Discharge Diagnosis (1) ST elevation (STEMI) myocardial infarction: Status: Acute Code(s): I21.3 - ST elevation (STEMI) myocardial infarction of unspecified site Plan This 51-year-old question gentleman was admitted with midsternal chest heaviness/tightness and EKG finding of STEMI. The patient felt lightheaded while lifting weights in gym and thereafter while driving he felt chest tightness and heaviness and a squeezing sensation in bilateral upper extremities and numbness. 1. Acute posterior lateral inferior STEMI: Twelve-lead EKG from ER and previous EKG reviewed. It shows ST elevation in V4 to V6 along with inferior leads and ST depression in aVR. Patient was taken to [facility] directly as a STEMI protocol and had PCI in proximal first OM1. Repeat EKG after procedure shows Q waves in inferior and lateral leads but resolution of ST elevation in lateral and inferior leads suggestive of posterior lateral and inferior infarct. High troponins. Patient is on aspirin lifelong. Plavix for 1 year. High intensity statin. Started on low-dose Coreg and ARB. Fasting profile shows LDL 117, TG 128, TC 170 and HDL 27. Glucose 103. A1c 5.9 suggestive of prediabetes. 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 Prescriptions for aspirin, Plavix, carvedilol, losartan, HCTZ and atorvastatin sent to patient's preferred pharmacy. 2D echo EF 55%, moderate concentric LVH. Inferior hypokinesis. 2. Hypertension: Continue medications. Started on hydrochlorothiazide. 3. History of VTE/PE in 2017: Patient denies history of hereditary hype rcoagulable state. He completed anticoagulation treatment. 4. Anxiety, depression and PTSD: Patient on Klonopin fluoxetine and trazodone. 5. Chronic liver injury, exact etiology unclear, possible chronic alcoholic hepatitis: Patient states he drinks alcohol occasionally and on holidays. Patient ALT 114, AST 286 and was 209 and 85 respectively in March 2022. It seems patient Billiter dietary supplement like protein supplement but it is improving. Follow-up with PCP for general work-up Malec rule out viral hepatitis. Patient is started on atorvastatin and therefore needs liver chemi stry follow-up in 3 months. 5. VTE prophylaxis: SCD. Patient had heparin bolus during procedure. On Lovenox. Discharge medication reconciliation done. Discharge follow-up instructions completed. Discharge process discussed with the patient and all questions were answered to patient's satisfaction. Total time spent, exact 35 minutes on discharge meds reconciliation, examination, coordination of care with nurses and ancillary staff, review of imaging and blood test and discussion with the patient on follow-up instructions. Laboratory Results 06/20/22 12:30: WBC 10.2, RBC 5.73, Hgb 16.8 H, Hct 51.4, MCV 89.7, MCH 29.3, MCHC 32.7, RDW Std Deviation 49.1 H, RDW Coeff of Sri 14.9 H, Plt Count 310, MPV 10.4, Immature Gran % (Auto) 0.900, Neut % (Auto) 54.8, Lymph % (Auto) 30.0, [place] % (Auto) 10.8 H, Eos % (Auto) 2.4, Baso % (Auto) 1.1 H, Absolute Neuts (auto) 5.6, Absolute Lymphs (auto) 3.07, Nucleated RBC % 0 06/20/22 12:30: PT 13.7, INR 1.1, APTT 22.5 L 06/20/22 13:05: Sodium 137, Potassium 3.9, Chloride 102, Carbon Dioxide 25.0, Anion Gap 10, BUN 10, Creatinine 1.16, Estim Creat Clear Calc 74.49, Est GFR (MDRD) Af Amer 85, Est GFR (MDRD) Non-Af 70, BUN/Creatinine Ratio 8.6 L, Glucose 117 H, Calcium 9.9, Troponin I High Sens 17 06/20/22 13:05: Magnesium 1.8, Troponin I High Sens Cancelled 06/20/22 13:12: Activated Clotting Time 126 06/20/22 13:34: Activated Clotting Time 190 H 06/20/22 13:43: Activated Clotting Time 242 H 06/20/22 15:10: Troponin I High Sens [id number] H* 06/20/22 18:05: Troponin I High Sens [id number] H* 06/21/22 03:55: WBC 13.2 H, RBC 5.31, Hgb 15.5, Hct 47.5, MCV 89.5, MCH 29.2, MCHC 32.6, RDW Std Deviation 48.2 H, RDW Coeff of Sri 14.7 H, Plt Count 263, MPV 10.2 06/21/22 03:55: Sodium 136, Potassium 4.1, Chloride 101, Carbon Dioxide 29.0, Anion Gap 6, BUN 11, Creatinine 1.07, Estim Creat Clear Calc 78.13, Est GFR (MDRD) Af Amer 93, Est GFR (MDRD) Non-Af 77, BUN/Creatinine Ratio 10.3, Glucose 103, Calcium 9.1, Total Bilirubin 0.90, AST 286 H, ALT 114 H, Alkaline Phosphatase 53, Total Protein 6.7, Albumin 3.4, Globulin 3.3, Albumin/Globulin Ratio 1.0, Triglycerides 128, Cholesterol 170, LDL Cholesterol 117, VLDL Cholesterol 26, HDL Cholesterol 27 L 06/21/22 03:55: Hemoglobin A1c 5.9 H Medications at Discharge Home Medications clonazepam 2 mg tablet (Klonopin) 2 mg PO DAILY PRN PRN Anxiety 12/23/17 fluoxetine 10 mg capsule 40 mg PO DAILY 05/14/19 trazodone 50 mg tablet 150 mg PO QHS 05/14/19 aspirin 81 mg tablet,delayed release 81 mg PO BREAKFAST #30 tabs 06/21/22 atorvastatin 40 mg tablet 40 mg PO QHS #30 tabs 06/21/22 carvedilol 3.125 mg tablet 3.125 mg PO BID #60 tabs 06/21/22 clopidogrel 75 mg tablet 75 mg PO DAILY #30 tabs 06/21/22 hydrochlorothiazide 25 mg tablet 25 mg PO DAILY #30 tabs 06/21/22 losartan 25 mg tablet 25 mg PO DAILY #30 tabs 06/21/22 nitroglycerin 0.4 mg sublingual tablet 0.4 mg sublingual Q5M PRN Cardiac/Chest Pain #30 tabs 06/21/22 sennosides 8.6 mg-docusate sodium 50 mg tablet (Stool Softener-Stimulant Laxative) 2 tab PO BID PRN PRN Constipation #0 tabs 06/21/22 Hospital Course Summary of Care Provided Hospital Course: This 51-year-old question gentleman was admitted with midsternal chest heaviness/tightness and EKG finding of STEMI. The patient felt lightheaded while lifting weights in gym and thereafter while driving he felt chest tightness and heaviness and a squeezing sensation in bilateral upper extremities and numbness. 1. Acute posterior lateral inferior STEMI: Twelve-lead EKG from ER and previous EKG reviewed. It shows ST elevation in V4 to V6 along with inferior leads and ST depression in aVR. Patient was taken to [facility] directly as a STEMI protocol and had PCI in proximal first OM1. Repeat EKG after procedure shows Q waves in inferior and lateral leads but resolution of ST elevation in lateral and inferior leads suggestive of posterior lateral and inferior infarct. Patient is on aspirin lifelong. Plavix for 1 year. High intensity statin. Started on low-dose Coreg and ARB. Fasting profile shows LDL 117, TG 128, TC 170 and HDL 27. Glucose 103. A1c ordered 2. Hypertension: Continue medications. Started on hydrochlorothiazide. 3. History of VTE/PE in 2017: Patient denies history of hereditary hypercoagulable state. He completed anticoagulation treatment. 4. Anxiety, depression and PTSD: Patient on Klonopin fluoxetine and trazodone. 5. VTE prophylaxis: SCD. Patient had heparin bolus during procedure. On Lovenox. Physical Exam Narrative Patient blood pressure is controlled. Seen by middle school librarian. Patient hemodynamically BP and heart rate controlled. Does not have chest pain. 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 Resolution of ST elevation on EKG after cardiac cath. Compensation And Benefits Administrator okay to discharge in afternoon/evening. Please see progress note of the same date for physical exam finding. Weight / BMI Weight Weight: 254 lb 10.142 oz Body Mass Index (BMI) 37.8 ABG / Lab / Microbiology Data Result Diagrams: 06/21/22 03:55 06/21/22 03:55 Laboratory: Laboratory Results - last 24 hr 06/20/22 12:30: WBC 10.2, RBC 5.73, Hgb 16.8 H, Hct 51.4, MCV 89.7, MCH 29.3, MCHC 32.7, RDW Std Deviation 49.1 H, RDW Coeff of Sri 14.9 H, Plt Count 310, MPV 10.4, Immature Gran % (Auto) 0.900, Neut % (Auto) 54.8, Lymph % (Auto) 30.0, Conway % (Auto) 10.8 H, Eos % (Auto) 2.4, Baso % (Auto) 1.1 H, Absolute Neuts (auto) 5.6, Absolute Lymphs (auto) 3.07, Nucleated RBC % 0 06/20/22 12:30: PT 13.7, INR 1.1, APTT 22.5 L 06/20/22 12:30: Sodium Cancelled, Potassium Cancelled, Chloride Cancelled, Carbon Dioxide Cancelled, Anion Gap Cancelled, BUN Cancelled, Creatinine Cancelled, Estim Creat Clear Calc Cancelled, Est GFR (MDRD) Af Amer Cancelled, Est GFR (MDRD) Non-Af Cancelled, BUN/Creatinine Ratio Cancelled, Glucose Cancelled, Calcium Cancelled, Troponin I High Sens Cancelled 06/20/22 13:05: Sodium 137, Potassium 3.9, Chloride 102, Carbon Dioxide 25.0, Anion Gap 10, BUN 10, Creatinine 1.16, Estim Creat Clear Calc 74.49, Est GFR (MDRD) Af Amer 85, Est GFR (MDRD) Non-Af 70, BUN/Creatinine Ratio 8.6 L, Glucose 117 H, Calcium 9.9, Troponin I High Sens 17 06/20/22 13:05: Magnesium 1.8, Troponin I High Sens Cancelled 06/20/22 13:12: Activated Clotting Time 126 06/20/22 13:34: Activated Clotting Time 190 H 06/20/22 13:43: Activated Clotting Time 242 H 06/20/22 15:10: Troponin I High Sens [id number] H* 06/20/22 18:05: Troponin I High Sens [id number] H* 06/21/22 03:55: WBC 13.2 H, RBC 5.31, Hgb 15.5, Hct 47.5, MCV 89.5, MCH 29.2, MCHC 32.6, RDW Std Deviation 48.2 H, RDW Coeff of Sri 14.7 H, Plt Count 263, MPV 10.2 06/21/22 03:55: Sodium 136, Potassium 4.1, Chloride 101, Carbon Dioxide 29.0, Anion Gap 6, BUN 11, Creatinine 1.07, Estim Creat Clear Calc 78.13, Est GFR (MDRD) Af Amer 93, Est GFR (MDRD) Non-Af 77, BUN/Creatinine Ratio 10.3, Glucose 103, Calcium 9.1, Total Bilirubin 0.90, AST 286 H, ALT 114 H, Alkaline Phosphatase 53, Total Protein 6.7, Albumin 3.4, Globulin 3.3, Albumin/Globulin Ratio 1.0, Triglycerides 128, Cholesterol 170, LDL Cholesterol 117, VLDL Cholesterol 26, HDL Cholesterol 27 L 06/21/22 03:55: Hemoglobin A1c 5.9 H Radiography Diagnostic Testing: Radiology Impression Echocardiogram 06/21/22 13:51 Interpretation Summary Moderate concentric left ventricular hypertrophy. The left ventricular ejection fraction is 55 %. Inferior hypokinesis Ordering Physician: Yoni Randall Referring Physician: Yoni Randall Performed By: Esthela Desai RCS D/C Instructions Discharge Diet: Low fat / Low cholesterol and 2000 mg Sodium Diet Call your doctor if you observe: Fever of 101 or Higher, Numbness or Tingling, Change in Color, Inability to urinate, Inability to have a bowel movement, Shortness of breath, Dizziness, Fainting spells, Swelling in the ankles, Chest pain, Prolonged hiccupping, Increased palpitations (irregular heartbeat), Calf discomfort and Uncontrolled pain Meaningful Use Info Meaningful Use Diagnoses (Choose all that apply): None applicable Discharge Plan Admission Admit Date/Time: 06/20/22 14:01 Primary Reason for Your Visit: Posterior lateral STEMI Attending Provider: Ariel Barreto Primary Care Provider: [facility] Consulting Providers: Yoni Randall Instructions Additional Instructions / Restrictions: Hold HCTZ if systolic blood pressure less than 120 mmHg. Discharge Orders/Prescriptions Prescriptions: New atorvastatin 40 mg Tablet 40 mg PO QHS Qty: 30 2RF sennosides-docusate sodium [Stool Softener-Stimulant Laxat] 8.6-50 mg Tablet 2 tab PO BID PRN PRN (Reason: Constipation) Qty: 0 0RF clopidogrel 75 mg Tablet 75 mg PO DAILY Qty: 30 2RF aspirin 81 mg Tablet,Delayed Release (Dr/Ec) 81 mg PO BREAKFAST Qty: 30 2RF carvedilol 3.125 mg Tablet 3.125 mg PO BID Qty: 60 1RF losartan 25 mg Tablet 25 mg PO DAILY Qty: 30 2RF nitroglycerin 0.4 mg Tablet, Sublingual 0.4 mg sublingual Q5M PRN (Reason: Cardiac/Chest Pain) Qty: 30 0RF hydrochlorothiazide 25 mg Tablet 25 mg PO DAILY Qty: 30 2RF Continued clonazepam [Klonopin] 2 MG tablet 2 mg PO DAILY PRN PRN (Reason: Anxiety) trazodone 50 MG tablet 150 mg PO QHS fluoxetine 10 MG capsule 40 mg PO DAILY Label Comments: TAKE 2 CAPSULES ORALLY DAILY FIRST 5 DAYS ONLY 1 CAPS Discontinued propranolol [Inderal] 20 mg Tablet 20 mg PO TID PRN (Reason: Anxiety) Referrals / Follow Up: Yoni Randall MD [Med Staff - Active Staff] - [facility]eks [facility] [Primary Care Provider] - Disposition Disposition (needs filled in before D/C Order can be placed): Home, Self Care Charges/Coding Addendum Addendum: Patient admitted with NSTEMI inferoposterolateral wall. Initially anticipated to be more than 2 midnights but patient did not had complication or uneventful night after cardiac cath. Heart rate and blood pressure is controlled. No significant arrhythmia noted on in home tutor. Compensation And Benefits Administrator okay for discharge in afternoon and evening. Patient was admitted as inpatient but was discharged because of sooner recovery than expected at time of admission. Visit Charges Inpatient E&M: 76645 Disch Hosp
--- NOTE | 2022-06-21 13:51 | ECHOD_ITS ---
Reason For Study: CHEST PAIN Procedure This was a 2D Doppler, Color Flow transthoracic echocardiogram. Exam performed in department. Left Ventricle Moderate concentric left ventricular hypertrophy. Normal LV size. The left ventricular ejection fraction is 55 %. Normal diastololic function. Inferior hypokinesis. Right Ventricle Normal right ventricle. Atria The left and right atria are normal. Mitral Valve The mitral valve is structurally normal. No prolapse or stenosis seen. Tricuspid Valve Normal tricuspid valve. Aortic Valve Normal aortic valve. Pulmonic Valve The pulmonic valve is not well visualized. Great Vessels Normal sized aortic root. Pericardium/Pleural No pericardial effusion. MMode/2D Measurements & Calculations LVIDd: 4.0 cm IVSd: 1.3 cm Ao root diam: 3.1 cm LVIDs: 2.9 cm LVPWd: 1.4 cm RVDd: 3.7 cm FS: 28.3 % LAV(MOD-bp): 54.0 ml LVAd ap4: 31.0 cm2 SV(MOD-sp4): 51.0 ml LAV(MOD-bp) Indexed: 23.9 ml/m2 LVLd ap4: 8.4 cm LAV(MOD-sp2): 55.4 ml EDV(MOD-sp4): 92.9 ml LAV(MOD-sp4): 50.5 ml EDV(sp4-el): 96.3 ml LVAs ap4: 18.6 cm2 LVLs ap4: 7.0 cm ESV(MOD-sp4): 41.9 ml ESV(sp4-el): 42.0 ml EF(MOD-sp4): 54.9 % EF(sp4-el): 56.4 % SV(sp4-el): 54.3 ml LA A4 area: 17.7 cm2 LA dimension(2D): 3.9 cm RA A4 area: 13.7 cm2 Time Measurements MV dec time: 0.19 sec Doppler Measurements & Calculations MV E max tan: 50.9 cm/sec Lat Peak E' Tan: 7.4 cm/sec Med Peak E' Tan: 7.4 cm/sec MV A max tan: 58.3 cm/sec E/E' lat: 6.9 E/E' med: 6.9 MV E/A: 0.87 MV V2 max: 82.9 cm/sec Ao V2 max: 111.1 cm/sec MV max P.8 mmHg MV dec slope: 279.1 cm/sec2 Ao max P.9 mmHg MV V2 mean: 46.8 cm/sec Ao V2 mean: 83.8 cm/sec MV mean P.0 mmHg Ao mean P.1 mmHg MV V2 VTI: 25.4 cm Ao V2 VTI: 22.2 cm AV (velocity ratio): 0.81 LV V1 max: 99.8 cm/sec PA V2 max: 121.3 cm/sec TR max tan: 239.9 cm/sec LV V1 max P.0 mmHg PA V2 mean: 82.3 cm/sec TR max P.0 mmHg LV V1 mean P.2 mmHg LV V1 mean: 70.2 cm/sec LV V1 VTI: 18.1 cm ECHO/Echo Complete Interpretation Summary Moderate concentric left ventricular hypertrophy. The left ventricular ejection fraction is 55 %. Inferior hypokinesis Ordering Physician: Yoni Randall Referring Physician: Yoni Randall Performed By: Esthela Desai RCS
== END 2022-06-21 14:54 | disposition home or self-care (01) | DRG 247 ==
LOC: ED 12:43 → ICU 12:56
PROVIDERS: Family Medicine; Admitting Provider Internal Medicine Cardiovascular Disease; Emergency Provider Emergency Medicine; Referring Provider Internal Medicine Cardiovascular Disease; Visit Provider Internal Medicine
DX: I21.19 ST elevation (STEMI) myocardial infarction involving other coronary artery of inferior wall (principal); F32.A Depression, unspecified; K70.10 Alcoholic hepatitis without ascites; I24.9 Acute ischemic heart disease, unspecified; F41.9 Anxiety disorder, unspecified; I10 Essential (primary) hypertension; F43.10 Post-traumatic stress disorder, unspecified; Z79.02 Long term (current) use of antithrombotics/antiplatelets; Z86.711 Personal history of pulmonary embolism; Z82.49 Family history of ischemic heart disease and other diseases of the circulatory system
CPT/HCPCS: 80048; 80053; 80061; 83036; 83735; 84484; 85025; 85027; 85347; 85610; 85730; 92941; 93005; 93306; 93458; 97802; 99152; 99153; 99285; J7030; J7040; Q9967; A4216; C1725; C1769; C1874; C1887; C1894; C9606

== ENCOUNTER → 2022-07-11 | Outpatient (CLI) | payer OTHER, SELFPAY ==
--- NOTE | 2022-07-11 09:27 | PCM.CR.HP2 ---
CR - History & Physical - General Arrival date:: 07/11/22 Arrival time:: 09:31 Date of Referral:: 06/21/22 Date of CR Evaluation:: 07/11/22 Referring Physician: Dr. Yoni Randall Primary Diagnosis: PCI w/coronary stenting - History of Present Cardiac Event Onset Date: Enter Onset Date of cardiac illnesses in Comment field below Acute Myocardial Infarction within 12 months:: Yes - 06/20/2022 STEMI call PTCA or coronary stenting:: Yes - 06/20/2022 Vessel: L[place] to proximal first OM1, Type of Symptoms:: ST elevation Myocardial infarction (STEMI call) Interventions with present event:: Chest pain on/off past couple of years, was exercising. Were there any complications?: none, a lot of fatigue - Sleep Disorder Evaluation Hx of Sleep Apnea: Yes Do you snore loudly (louder than talking or can be heard through closed doors)?: Yes - due to the PTSD unable to do the CPAP, was scheduled for Inspire device since the [place] has been delayed. - Medications Home Medications: Ambulatory Orders Medication Instructions Recorded fluoxetine 10 mg capsule 40 mg PO DAILY 05/14/19 trazodone 50 mg tablet 150 mg PO QHS 05/14/19 clonazepam 2 mg tablet 2 mg PO DAILY PRN PRN Anxiety #20 06/21/22 tabs sennosides 8.6 mg-docusate sodium 2 tab PO BID PRN PRN Constipation 06/21/22 50 mg tablet (Stool #0 tabs Softener-Stimulant Laxative) aspirin 81 mg tablet,delayed 81 mg PO BREAKFAST Fax to [place] 06/23/22 release [facility] #90 tabs atorvastatin 40 mg tablet 40 mg PO QHS Fax to [facility] 06/23/22 #90 tabs carvedilol 3.125 mg tablet 3.125 mg PO BID Fax to [place] 06/23/22 [place] #180 tabs clopidogrel 75 mg tablet 75 mg PO DAILY Fax to [facility] 06/23/22 #90 tabs hydrochlorothiazide 25 mg tablet 25 mg PO DAILY Fax to [facility] 06/23/22 #90 tabs losartan 25 mg tablet 25 mg PO DAILY Fax to [facility] 06/23/22 #90 tabs nitroglycerin 0.4 mg sublingual 0.4 mg sublingual Q5M PRN 06/23/22 tablet Cardiac/Chest Pain FAX to [facility] #25 tabs - Allergies Allergies/Adverse Reactions: Allergies No Known Allergies Allergy (Verified 06/20/22 12:37) Advanced Directives - Advanced Directives Power of Intelligence Intern: Yes Living Will: Yes Advance Directives Information Provided: No Advance Directives on File: No DNR Order?:: No - MOLST See MOLST form: No Past Medical History - Covid-19 Screening Fever: No Unexplained muscle aches: No Current respiratory symptoms: No Upper respiratory infections symptoms: No Gastro-intestinal symptoms: No [id number] symptoms: No Has High Risk Exposures ID'd by Health dept/Inf Control team: No 65 years or older:: No Lives in Assisted Living facility:: No Has a chronic lung disease or moderate to severe asthma:: No Has a serious heart condition:: No Immunocompromised:: No Severely obese (Body Mass Index of 40 or higher):: No Diabetic:: No Has chronic kidney disease undergoing dialysis:: No Has liver disease:: No - Past Medical Illness Medical History: Past Medical History (Last Updated 06/21/22 @ 17:04 by Kelsey Cochran) Anxiety and depression F41.9, F32.A Atherosclerosis of coronary artery of [place] heart without angina pectoris I25.10 Elevated liver enzymes R74.8 History of posttraumatic stress disorder (PTSD) Z86.59 Hypertension I10 Obesity E66.9 PTSD (post-traumatic stress disorder) F43.[address] elevation (STEMI) myocardial infarction I21.3 - Past Surgical History Surgical History: Past Surgical History (Last Updated 06/21/22 @ 17:08 by Kelsey Cochran) H/O hernia repair Z98.890, Z87.19 History of coronary artery stent placement Onset Date: ~06/20/22 Z95.5 PTCA/LONDON Prox OM1 Resolute Neil 3.0x15mm Surgical History: no surgical history - Family History Summary Family History: Family History (Last Updated 06/20/22 @ 14:[address] Dipika Ramirez MD) Mother Lung cancer Concurrent tobacco use history. Father CVA (cerebral vascular accident) Hypertension CAD (coronary artery disease) Early onset. Social History - Smoking History Smoking Status: Never smoker - Alcohol Use Alcohol Usage: Yes - occasionally - Occupation Occupation (List type of work in comments):: Retired - [employer] - Hobbies, Recreation, Social Activities Hobbies: Sports - Golf, Exercise Recreational Activities: I am able to engage in a few activities Social Environment - Status Marital Status: - Current Living Arrangements Living Environment:: Spouse - Children How many children do you have?: 2 Do any of your children live nearby?: Yes - Safety Do you feel safe in your surroundings?: Yes - Assistance Do you need any assistance at home?: no Review of Systems - Review of Systems Hints: Right click = Denies (Slash). Left click = Reports ([place]) Review of Present Symptoms: Reports: Shortness of Breath at Rest, Shortness of Breath with Exertion, Angina, Dizziness/Lightheadedness, Fatigue, Appetite - Normal, Appetite - Special Diet - cut down on fats and sodium. Denies: Heart Arrhythmia/Irregularities, Sleep - Normal - Don't sleep much, hasn't for a couple of years - Pain Pain Location: upper extremity - shoulder, planta fasciaitis, fybromyalgia Pain Level: 0/10 Risk Factor Assessment - Chief Complaint Chief Complaint: STEMI, PCI w/[place] to proximal OM1 - Vital Signs Temperature: 97.9 F Respiratory Rate: 16 Pulse Ox: 97 Blood Pressure: 128/65 - Pulse Pulse Rate: 65 Pulse Rhythm: Regular - Hypertension Blood Pressure Sitting - Left Arm: 128/65 - Stress Stress: Long-standing - PTSD, - - Anxiety Depression, PTSD - Blood Cholesterol/Lipids Total Cholesterol (mg/dL) Goal = less than 200 mg/dL: 170 HDL Cholesterol (mg/dL) Goal = less than 40 mg/dL: 27 LDL Cholesterol (mg/dL) Goal = less than 70 mg/dL: 117 Triglycerides (mg/dL) Goal = less than 150 mg/dL: 128 - Diabetes Nutrition Referral for Diabetes: No - Obesity Height: 5 ft 8.9 in Weight:: 254 lb Weight in Pounds: 254.0 lbs Weight Source: Estimated by Patient Body Mass Index (BMI): 37.6 Nutritional Referral for Obesity: Yes - HTN, mixed HLD - Risk Stratification Risk Guidelines: Lowest Risk: Risk Factor for Smoking, Risk Factor for Dyslipidemia, Risk Factor for Diabetes, Risk Factor for Sedentary Lifestyle, Moderate Risk: Risk Factor for Hypertension - 128/65, Highest Risk: Risk Factor for Obesity - BMI 37.5, Risk Factor for Depression - Family History Family History: Family History (Last Updated 06/20/22 @ 14:[address] Dipika Ramirez MD) Mother Lung cancer Father CVA (cerebral vascular accident) Hypertension CAD (coronary artery disease) Motivation - Motivation to Participate On a scale of 1 to 10, how prepared are you to commit to attending program?: 10 What do you see as barriers to successfully being able to complete the program?: none What do you see as the benefits of succesfully completing the program? In other words, what do you hope to get out of participating in the program?: Being able to get back to the gym, resume normal life, reduce worry Are there issues you are dealing with that will interfere with completing the program?: no Do you have a spouse or signficant other, family or friends who will help support you to complete the program?: Yes
--- NOTE | 2022-07-11 09:28 | PCM.CR.ITP ---
Diagnosis - General Information Admitting Diagnosis: STEMI, PTCA w/[place] to proximal OM1 Secondary Diagnosis: HTN, mixed hyperlipidemia Personal Learning Style:: Audio/Visual, Written Barriers to Learning: No Barriers Stage of change r/t lifestyle modifications:: Action Gave educational material for:: Treating Heart Disease, Emotions & Heart Disease, Stress Management & Relaxation, Sleep Disorders & Heart Disease, How The Heart Works, What it means to have Heart Disease, How Coronary Artery Disease is Diagnosed, Heart Procedures, What Heart Medications Do, Risk Factors & Modifications, Living an Active Life, Nutrition - Education/Goals Individual Counseling: Initial Assessment: Abnormal Cholesterol Levels, High Blood Pressure, Overweight/Obesity - BMI 37 Cardiac Rehabilitation Goals: 1. Maintain the individual as the primary focus of care. 2. To improve the patient's quality of life. 3. Identification of cardiac risk factors and provide cardiac risk factor management. 4. Enhance the psychosocial status of the patient. 5. Reconditioning enough to allow the patient to resume customary activities. 6. Control symptoms of cardiac disease Personal Goals: Initial Assessment: Improve management of stress and emotions, Improve energy level, Participate in home exercise program, Get back to work, or to resume activities faster, Improve knowledge of cardiac disease, Improve muscle strength and endurance, Improve diet and eating habits (eat healthier), Control risk factors (learn risk factor modification), Other goal: - Resume Golf, Exercise, reduce worry about having another heart attack. Scale for measuring improvement of personal goals: Enter appropriate number in Comments. 2 = Unchanged. 3 = Slightly Better. 4 = Moderate Improvement. 5 = Met my Goal - Diagnosis & Disease Process Outcomes/Goals: Pt IDs own risk factors & lifestyle modifications by Session 10, Verbalizes symptoms of angina & response by session 3., Pt independently manages Plan/Interventions: Assist Pt to ID & engage in lifestyle modification to reduce CVD risk, Instruct on individual risk factors, Review symptoms of angina & emergency actions, Review secondary diagnosis & identify educational needs. - Safety Referral to Physical Therapy: No Referral to [facility] Case Management: No Fall Risk Assessed:: Yes Assistive Devices:: None Exercise - Initial Assessment - Visit Date of Eval: 07/11/22 Session #:: 0 - Pre-cardiac rehab evaluation Mets: Pre-: >7 METS for 30 minutes by discharge - Physician Prescribed Exercise Modalities: Treadmill, Rower, Airdyne Frequency: 3x/week for 12 weeks [36 sessions] Intensity: 60-80% of age predicted maximum heart rate reserve Duration: 30 - 45 minutes Target Heart Rate:: 109-126 Resting Blood Pressure: 128/65 EKG Type: Normal Sinus Rhythm with sinus arrythmia - Outcomes & Goals Goals:: Verbalizes understanding of THR, RPE & goal METS by session 6, Documents in home exercise log/reports 30 min aerobic 5 day/wk by DC, Demonstrates accurate pulse taking by DC - Intervention & Plan Exercise Program Goals: Instruct on personal THR & RPE, Instruct on MET level & personal MET goal, Show patient to take own pulse /validate performance until accurate, Instruct on home exercise - Physical Activity Home Exercise Physical Activity - Home Exercise: Safe Exercise, Warm-up, Self-monitoring, Cool-Down, Home Exercise > 30 min Daily, Sitting Time <3 hours/daily - Outcomes & Goals Outcomes/Goals: Demonstrates correct Warm-up/exercise Cool-Down (S3) if = 2.5 METs, Verbalizes symptoms of exercise intolerance by Session 3 (S3), Demonstrate safe equipment use (S3) & follows exercise prescrition (6) - Intervention & Plan Plan/Intervention: Instruct warm-up & cool-down if exercising at > 2 METs, Instruct on symptoms of exercise intolerance & actions to take, Instruct & monitor on saf, Assess intial functional capacity & safety risk Nutrition - Initial Assessment - Program Goals Nutrition Program Goals: LDL <100 optimal. 100 - 129 Near optimal. 130 - 159 Borderline High. 160 - 189 High. Total Cholesterol <200 desirable. 200 - 239 Borderline High. >/= 240 High. HDL < 40 Low >/=60 High. Triglycerides <150 desirable. <199 optimal. VlDL 5 - 40. HgbA1C <7%. BMI <25 Patient has diagnosis of Hyperlipidemia (ICD E78)?: Yes - Visit Date of Assessment:: 07/11/22 Session #:: 0 - Pre-cardiac rehab evaluation - Cholesterol/Lipids (Other Core Measures) Triglycerides (mg/dL): 128 Total Cholesterol (mg/dL): 170 LDL Cholesterol (mg/dL): 117 HDL Cholesterol (mg/dL): 27 Determine presence & major risk factors that modify LDL goal: Hypertension or hypertensive medication, Low HDL cholesterol <40 mg/dL*, Age men > 45 years; women >/= 55 years Outcomes/Goals: Pt IDs own risk factors & lifestyle modifications by Session 10, Verbalizes symptoms of angina & response by session 3., Pt independently manages Intervention/Plan: Instruct on personal lipid levels & lipid goals/NCEP guidelines, Instruct on cholesterol Referral to dietitian:: Yes - HTN and mixed HLD - Diabetes (Other Core Measures) Diabetes Type: Not Applicable Fasting blood glucose:: 103 Hgb A1C (4.2 - 6.3): 5.9 Insulin dependent injection/pump?: No Non-Insulin Dependent?: No Do you monitor your blood sugar at home?: No Referral to Diabetic Clinic:: No - Weight Mgt (Other Care) Not Applicable: No Height: 5 ft 9 in Weight:: 254 lb BMI: 37.5 Diagnosis Overweight/Obesity BMI> 30% ICD-10 E66: Yes Diagnosis High BMI/Morbid Obesity BMI> 35% ICD-10 Z68: Yes Outcomes/Goals: Pt sets, maintains & shows weight loss goal & trend during rehab Intervention/Plan: Instruct on ideal BMI & set weight loss goal w/patient, Assist pt to ID & incorporate diet changes for weight loss by S9, Refer to Structured Weight Loss program as appropriate - Please contact PATRICIO Rodarte ext. [phone] for Authorization if needed., Encourage goal of using 250-300dcal per session for weight loss - Healthy Eating Habits Will attend diet classes:: Yes Outcomes/Goals:: Consume diet rich in vegs,fruits,whole grain/high fiber,fish,lean meat, Limit sat/trans fats,cholesterol & added salts & sugars Intervention/Plan:: Assess current eating habits - Education Gave educational materials for:: Healthy eating Nutrition - 30-Day Assessment Nutrition - 60-Day Assessment Nutrition - 90-Day Assessment Nutrition - Final Assessment Core - Initial Assessment - Visit Date of Eval: 07/11/22 Session #:: 0 - Pre-cardiac rehab evaluation - Medication Compliance Preventative Medication(s):: Aspirin, Clopidogrel/P2Y12 inhibit, Statin/lipid, Beta lourdes H/O mental health issues: depression, anxiety, or addiction?: Yes Doesn?t believe in the benefits of treatment?: No Believes medications are unnecessary or harmful?: No Has a concern about medication side effects?: No Expresses concern over the cost of medications?: No Outcomes/Goals: Verbalizes medications,desired effect & common side effects @ DC, Pt self-reports following medication regimen, Keeps card in wallet w/medications listed by DC Interventions/plans: Instruct on medication effects & side effects, Review medication list w/patient every two weeks, Instruct importance of taking meds as ordered & assist problem solving - Hypertension Hypertension Diagnosis:: Hypertension ICD-10 I10 Resting Blood Pressure:: 128/65 [place] [employer] Hypertension Guidelines: [place] [employer] Hypertension Guidelines. Normal BP Less than 120/80. Elevated BP 120/80. Hypertension Stage 1: BP 130-139/80-89. Hypertesnion Stage 2: BP 140 or higher/90 or higher. Hypertension Crisis: BP higher than 180/120 - Tobacco Cessation Referral Smoking Cessation Referral:: No Individual Education/Counseling:: No Education Schedule Given:: Yes Core - 30-Day Assessment Core - 60-Day Assessment Core - 90 Day Assessment Core - Final Assessment Psychosocial - Initial Assess - VIsit Date of Eval: 07/11/22 Session #:: 0 - Pre-cardiac rehab evaluation Not Applicable: No History of previous Mental disease:: Yes History of Emotional Disorders: Anxious, Depression - PTSD - Psychosocial Test Tool Used:: [employer] Transmit Promo QOL Cardiac, PHQ-9 Questionnaire phq-9 Severity: Severity. 1-4 Minimal Depression. 5-9 Mild Depression. 10-14 Moderate Depression. 15-19 Moderately Sever Depression. 20-27 Severe Depression. Rule: - Referral to Behavioral Health PS - Interventions: Yes Attend Stress Management Classes, No Referral to Behavioral Health if PHQ-9 score >9:, No Referral to [facility], No Referral to Physician if PHQ-9 if score is 5-9: - Outcomes/Goals: See list Psychosocial Outcomes/Goals:: ID's personal stressors & 2 strategies to manage stress by discharge - Intervention/Plan: See List Interventions/Plan:: Assess stressors,coping strategies & signs of derpression on admission, Instruct/assist pt to develop coping & personal stress Mgt strategies, Instruct patient to recognize signs & symptoms of depression, Instruct patient to recog Psychosocial - 30-Day Assess Psychosocial - 60-Day Assess Psychosocial - 90-Day Assess Psychosocial - Final Assessmen Patient Health Questionnaire Initial Assessment 1. Little interest or pleasure in doing things: Not at all 2. Feeling down, depressed, or hopeless: Several days 3. Trouble falling or staying asleep, or sleeping too much: More than half the days 4. Feeling tired or having little energy: More than half the days 5. Poor appetite or overeating: Several days 6. Feeling bad about yourself -- or that you are a failure or have let yourself or your family down: Several days 7. Trouble concentrating on things, such as reading the newspaper or watching television: More than half the days 8. Moving or speaking so slowly that other people could have noticed. Or the opposite - being so fidgety or restless that you have been moving around a lot more than usual: More than half the days 9. Thoughts that you would be better off , or of hurting yourself in some way: Not at all How difficult have these problems made it for you to do your work, take care of things at home, or get along with other people?: Somewhat difficult - Patietn diagnosed with Depression, Anxiety and PTSD Total Score: 11 EWA-Q SV Test - Statements CAD is a disease of the arteries in the heart: False Examples of risk factors for heart disease: True Angina is chest pain or discomfort: True The benefits of resistance training include: True Eating more meat and dairy products: False Anti-platelet medications such as aspirin are important: True The only effective way to manage stress: False An exercise warm-up slowly increases heart rate: True Prepared, processed foods usually have high sodium: True Depression is common after a heart attack: True The statin medications lower cholesterol: True To control blood pressure, lower the amount of sodium: True If someone gets chest discomfort during walking: False Transfats are partially hydrogenated vegetable oils: I Don't Know Sleep apnea that is not treated increases the risk: False To control cholesterol, one should become a vegetarian: False Someone knows if he/she is exercising at the right level: False Diabetes cannot be prevented with exercise & health eating: False Stress is a large risk for heart attack: True A diet that can help lower blood pressure is rich in: True - Total Score Total Correct Responses: 18 Self-Efficacy Initial Assessment We would like to know how confident you are in doing certain activities. Please select your confidence level for:: Select your confidence level for the following using the scale 1-10 where 1 is not at all confident and 10 is totally confident. Your score is the average of all 6 responses. Fatigue: How confident are you that you can keep the fatigue caused by your disease from interfering with the things you want to do? Select Number: 5 Physical Discomfort or Pain: How confident are you that you can keep the physical discomfort or pain of your disease from interfering with the things you want to do? Select Number: 8 Emotional Distress: How confident are you that you can keep the emotional distress caused by your disease from interfering with the things you want to do? Select Number: 5 Other Symptoms or Health Problems: How confident are you that you can keep other symptoms or health problems from interfering with the things you want to do? Select Number: 6 Different Tasks and Activities: How confident are you that you can do the different tasks and activities needed to manage your health condition so as to reduce your need to see a doctor? Select Number: 6 Medication: How confident are you that you can do things other than just taking medication to reduce how much your illness affects your everyday life? Select Number: 5 Total Score:: 5 Nutrition Survey - Nutrition Survey Initial Have you lost >10 lbs over the past 2 months without trying?: Yes Are you following a special diet at home for diabetes, low fat, or low salt?: Yes Are you interested in meeting with a dietitian for help understanding your diet?: Yes Do you eat less than 3 meals a day?: No Do you eat fatty meats (saldivar, sausage, ribs, etc), fried foods, desserts, large amounts of salad dressings, margarine, butter, or cheese most days?: No Do you have food allergies? [Enter types in comment field]: No Do you eat in restaurants more than 3 times a week?: No Do you season food with salt, seasoning salt, or garlic salt?: No Do you used canned, boxed, frozen meals, or soups, seasoning packets?: No - Patient is Authorized through the [facility]. Please contact Parvin CURRY ext. [phone] for Nutritional Services Authorization if needed. Total Score:: 3
[2022-07-11 09:55] VITALS: BP 128/65; PULSE 65; RESP 16; TEMP 36.6; O2SAT 97; BMI 37.6
[2022-07-11 10:23] VITALS: BP 128/65; BMI 37.5
== END | disposition home or self-care (01) ==
PROVIDERS: Referring Provider Internal Medicine Cardiovascular Disease; Visit Provider Internal Medicine Cardiovascular Disease
DX: I10 Essential (primary) hypertension (principal); E78.5 Hyperlipidemia, unspecified

== ENCOUNTER 2022-08-21 10:30 | Outpatient (RCR) | payer OTHER, SELFPAY ==
[2022-07-11 10:23] VITALS: BMI 37.5
== END 2022-08-22 23:59 ==
LOC: CR 10:30
PROVIDERS: Referring Provider Internal Medicine Cardiovascular Disease; Visit Provider Internal Medicine Cardiovascular Disease
DX: I25.10 Atherosclerotic heart disease of native coronary artery without angina pectoris (principal); I25.2 Old myocardial infarction; Z95.5 Presence of coronary angioplasty implant and graft; R07.9 Chest pain, unspecified
CPT/HCPCS: 93798; 97802

== ENCOUNTER 2022-09-11 10:30 | Outpatient (RCR) | payer OTHER, SELFPAY ==
[2022-07-11 10:23] VITALS: BMI 37.5
== END 2022-09-19 23:59 ==
LOC: CR 10:30
PROVIDERS: Referring Provider Internal Medicine Cardiovascular Disease; Visit Provider Internal Medicine Cardiovascular Disease
DX: I25.10 Atherosclerotic heart disease of native coronary artery without angina pectoris (principal); I25.2 Old myocardial infarction; R07.9 Chest pain, unspecified; Z95.5 Presence of coronary angioplasty implant and graft
CPT/HCPCS: 93798

== ENCOUNTER 2022-10-06 10:30 | Outpatient (RCR) | payer OTHER, SELFPAY ==
[2022-07-11 10:23] VITALS: BMI 37.5
--- NOTE | 2022-09-20 13:24 | CR.ITP_ITS ---
Diagnosis Exercise - 60-day Assessment - Visit Date of Eval: 09/20/22 Session #:: 19 Comments:: Patient has been absent since 09/13/22 and reports to be coming back on Sunday09/25/2022 - Physician Prescribed Exercise Modalities: Treadmill, Airdyne, NuStep, Lateral Free Soil Frequency: 3x/week for 12 weeks [36 sessions] Intensity: 60-80% of age predicted maximum heart rate reserve Duration: 30 - 45 minutes Current METSs:: 8.0 Target Heart Rate:: 126-141 Current RPE:: 13-14 Maximum Excercise HR:: 123 Resting Blood Pressure: 124/58 Maximum Exercise Blood Pressure: 144/80 EKG Type: NSR to sinus tach no ectopy. - Outcomes & Goals Goals:: Verbalizes understanding of THR, RPE & goal METS by session 6, Documents in home exercise log/reports 30 min aerobic 5 day/wk by DC, Demonstrates accurate pulse taking by DC - Intervention & Plan Exercise Program Goals: Instruct on personal THR & RPE, Instruct on MET level & personal MET goal, Show patient to take own pulse /validate performance until accurate, Instruct on home exercise - 30-day Reassessments 30 day Reassessments:: Met - Physical Activity Home Exercise Physical Activity - Home Exercise: Safe Exercise, Warm-up, Self-monitoring, Cool-Down, Home Exercise > 30 min Daily, Sitting Time <3 hours/daily - Outcomes & Goals Outcomes/Goals: Demonstrates correct Warm-up/exercise Cool-Down (S3) if = 2.5 METs, Verbalizes symptoms of exercise intolerance by Session 3 (S3), Demonstrate safe equipment use (S3) & follows exercise prescrition (6) - Intervention & Plan Plan/Intervention: Instruct warm-up & cool-down if exercising at > 2 METs, Instruct on symptoms of exercise intolerance & actions to take, Instruct & monitor on saf, Assess intial functional capacity & safety risk - 30-day Reassessments 30 day Reassessments:: Met Nutrition - Initial Assessment Nutrition - 30-Day Assessment Nutrition - 60-Day Assessment - Program Goals Nutrition Program Goals: LDL <100 optimal. 100 - 129 Near optimal. 130 - 159 Borderline High. 160 - 189 High. Total Cholesterol <200 desirable. 200 - 239 Borderline High. >/= 240 High. HDL < 40 Low >/=60 High. Triglycerides <150 desirable. <199 optimal. VlDL 5 - 40. HgbA1C <7%. BMI <25 Patient has diagnosis of Hyperlipidemia (ICD E78)?: Yes - Visit Date of Assessment:: 09/20/22 Session #:: 20 - Cholesterol/Lipids (Other Core Measures) Determine presence & major risk factors that modify LDL goal: Hypertension or hypertensive medication, Low HDL cholesterol <40 mg/dL*, Family history of premature CHD in Male < 55 years: female <65 yearsFa, Age men > 45 years; women >/= 55 years Outcomes/Goals: Pt IDs own risk factors & lifestyle modifications by Session 10, Verbalizes symptoms of angina & response by session 3., Pt independently manages Intervention/Plan: Instruct on personal lipid levels & lipid goals/NCEP guidelines, Instruct on cholesterol Referral to dietitian:: Yes - Why Weight on 07/31/2022 30-day Reassessments:: Met - Diabetes (Other Core Measures) Diabetes Type: Not Applicable - Weight Mgt (Other Care) Height: 5 ft 9 in Weight:: 250 lb - Patient has gained 10 pounds! BMI: 36.9 Diagnosis Overweight/Obesity BMI> 30% ICD-10 E66: Yes Diagnosis High BMI/Morbid Obesity BMI> 35% ICD-10 Z68: Yes Outcomes/Goals: Pt sets, maintains & shows weight loss goal & trend during rehab Intervention/Plan: Instruct on ideal BMI & set weight loss goal w/patient, Assist pt to ID & incorporate diet changes for weight loss by S9, Refer to Structured Weight Loss program as appropriate, Encourage goal of using 250- 300dcal per session for weight loss 30 day Reassessments:: Not Met - Healthy Eating Habits Will attend diet classes:: Yes Outcomes/Goals:: Consume diet rich in vegs,fruits,whole grain/high fiber,fish,lean meat, Limit sat/trans fats,cholesterol & added salts & sugars Intervention/Plan:: Assess current eating habits 30-day Reassessments:: Met - Education Gave educational materials for:: Signs & symptoms of hypoglycemia, Signs & symptoms of hyperglycemia, Relate diabetes to coronary artery disease Nutrition - 90-Day Assessment Nutrition - Final Assessment Core - Initial Assessment Core - 30-Day Assessment Core - 60-Day Assessment - Visit Date of Eval: 09/20/22 Session #:: 20 - Medication Compliance Preventative Medication(s):: Aspirin, Clopidogrel/P2Y12 inhibit, Statin/lipid, Beta lourdes H/O mental health issues: depression, anxiety, or addiction?: No Doesn?t believe in the benefits of treatment?: No Believes medications are unnecessary or harmful?: No Has a concern about medication side effects?: No Expresses concern over the cost of medications?: No Outcomes/Goals: Verbalizes medications,desired effect & common side effects @ DC, Pt self-reports following medication regimen, Keeps card in wallet w/medications listed by DC Interventions/plans: Instruct on medication effects & side effects, Review medication list w/patient every two weeks, Instruct importance of taking meds as ordered & assist problem solving 30-day Reassessments:: Met - Tobacco Use Tobacco Use: Non-smoker - Hypertension Hypertension Diagnosis:: Hypertension ICD-10 I10 Resting Blood Pressure:: 124/58 [place] [employer] Hypertension Guidelines: [place] [employer] Hypertension Guidelines. Normal BP Less than 120/80. Elevated BP 120/80. Hypertension Stage 1: BP 130-139/80-89. Hypertesnion Stage 2: BP 140 or higher/90 or higher. Hypertension Crisis: BP higher than 180/120 Peak Exercise Blood Pressure:: 162/84 Outcomes/Goals: Able to verbalize/achieve optimal blood pressure <130/80, Incorporates diet changes & exercise for blood pressure control by DC Interventions/plan: Instruct on optimal blood pressure, hypertension & medications, Instruct on effects of sodium, alcohol, stress, exercise &hypertension, Other additional plan/interventions 30 day Reassessments:: Progressing - Tobacco Cessation Referral Smoking Cessation Referral:: No Individual Education/Counseling:: No Education Schedule Given:: Yes Core - 90 Day Assessment Core - Final Assessment Psychosocial - Initial Assess Psychosocial - 30-Day Assess Psychosocial - 60-Day Assess - VIsit Date of Eval: 09/20/22 Session #:: 20 Not Applicable: Yes History of previous Mental disease:: No - Psychosocial Test Tool Used:: PHQ-9 Questionnaire phq-9 Severity: Severity. 1-4 Minimal Depression. 5-9 Mild Depression. 10-14 Moderate Depression. 15-19 Moderately Sever Depression. 20-27 Severe Depression. Rule: - Referral to Behavioral Health PS - Interventions: Yes Attend Stress Management Classes, No Referral to Behavioral Health if PHQ-9 score >9:, No Referral to [facility], No Referral to Physician if PHQ-9 if score is 5-9: - Outcomes/Goals: See list Psychosocial Outcomes/Goals:: ID's personal stressors & 2 strategies to manage stress by discharge - Intervention/Plan: See List Interventions/Plan:: Assess stressors,coping strategies & signs of derpression on admission, Instruct/assist pt to develop coping & personal stress Mgt strategies, Instruct patient to recognize signs & symptoms of depression, Instruct patient to recog - 30-day Reassessments: 30 day Reassessments:: Met Psychosocial - 90-Day Assess Psychosocial - Final Assessmen Patient Health Questionnaire 60-Day Re-eval Assessment 1. Little interest or pleasure in doing things: Not at all 2. Feeling down, depressed, or hopeless: Several days 3. Trouble falling or staying asleep, or sleeping too much: More than half the days 4. Feeling tired or having little energy: More than half the days 5. Poor appetite or overeating: Several days 6. Feeling bad about yourself -- or that you are a failure or have let yourself or your family down: Several days 7. Trouble concentrating on things, such as reading the newspaper or watching television: More than half the days 8. Moving or speaking so slowly that other people could have noticed. Or the opposite - being so fidgety or restless that you have been moving around a lot more than usual: More than half the days 9. Thoughts that you would be better off , or of hurting yourself in some way: Not at all How difficult have these problems made it for you to do your work, take care of things at home, or get along with other people?: Somewhat difficult Total Score: 11 Self-Efficacy 60-Day Re-eval Assessment We would like to know how confident you are in doing certain activities. Please select your confidence level for:: Select your confidence level for the following using the scale 1-10 where 1 is not at all confident and 10 is totally confident. Your score is the average of all 6 responses. Fatigue: How confident are you that you can keep the fatigue caused by your disease from interfering with the things you want to do? Select Number: 7 Physical Discomfort or Pain: How confident are you that you can keep the physical discomfort or pain of your disease from interfering with the things you want to do? Select Number: 9 Emotional Distress: How confident are you that you can keep the emotional distress caused by your disease from interfering with the things you want to do? Select Number: 6 Other Symptoms or Health Problems: How confident are you that you can keep other symptoms or health problems from interfering with the things you want to do? Select Number: 7 Different Tasks and Activities: How confident are you that you can do the different tasks and activities needed to manage your health condition so as to reduce your need to see a doctor? Select Number: 8 Medication: How confident are you that you can do things other than just taking medication to reduce how much your illness affects your everyday life? Select Number: 8 Total Score:: 7 Nutrition Survey
[2022-09-20 13:33] VITALS: BP 124/58; BP 162/84; BMI 36.9
== END 2022-10-20 23:59 ==
LOC: CR 10:30
PROVIDERS: Referring Provider Internal Medicine Cardiovascular Disease; Visit Provider Internal Medicine Cardiovascular Disease
DX: I25.10 Atherosclerotic heart disease of native coronary artery without angina pectoris (principal); I25.2 Old myocardial infarction; R07.9 Chest pain, unspecified; Z95.5 Presence of coronary angioplasty implant and graft
CPT/HCPCS: 93798

== ENCOUNTER 2022-10-25 10:15 | Outpatient (RCR) | payer OTHER, SELFPAY ==
[2022-09-20 13:33] VITALS: BMI 36.9
[2022-10-21 01:05] VITALS: BP 124/58; BP 162/84
== END 2022-11-19 23:59 ==
LOC: CR 10:15
PROVIDERS: Referring Provider Internal Medicine Cardiovascular Disease; Visit Provider Internal Medicine Cardiovascular Disease
DX: I25.10 Atherosclerotic heart disease of native coronary artery without angina pectoris (principal); I25.2 Old myocardial infarction; R07.9 Chest pain, unspecified; Z95.5 Presence of coronary angioplasty implant and graft
CPT/HCPCS: 93798

== ENCOUNTER 2024-04-16 13:10 | Emergency (ER) | payer OTHER, SELFPAY ==
[2022-09-20 13:33] VITALS: BMI 36.9
[2024-04-16 13:11] VITALS: BP 156/95; PULSE 63; RESP 18; TEMP 36.2; O2SAT 97; BMI 33.7
--- NOTE | 2024-04-16 13:59 | CT_ITS ---
STUDY: CT ABDOMEN AND PELVIS WITH CONTRAST REASON FOR EXAM: Male, 53 years old. LLQ pain RADIATION DOSAGE (If Supplied By Facility): CTDIvol = ( 13.53 ) mGy, DLP = ( 1084.63 ) mGycm TECHNIQUE: Transaxial images were obtained from the dome of the diaphragm to the symphysis pubis without oral contrast. IV 100mL Isovue-370 was administered. Sagittal and coronal images were reconstructed. Individualized dose optimization techniques were used for this CT. COMPARISON: None. FINDINGS: The visualized lung bases are unremarkable. The visualized portions of the heart are within normal limits. Normal liver. Normal gallbladder and extrahepatic biliary system. Normal spleen. Normal pancreas. Normal bilateral adrenal glands. Tiny cortical cyst in the right kidney which will not require additional imaging. Normal left kidney. Normal visualized stomach. No evidence for small bowel obstruction.. There is a slightly hyperattenuated appearance to intraluminal contents in the proximal to mid small bowel of indeterminate etiology Mild diverticular disease in the distal descending colon but no definitive evidence for acute diverticulitis. The appendix is visualized and appears normal. Normal abdominal aorta. Normal inferior vena cava. Normal retroperitoneum. Normal urinary bladder. Minor prominence of the prostate containing calcifications Normal abdominal wall. Lumbar spine exhibits degenerative changes CT/Abdomen/Pelvis W IV Cont ONLY IMPRESSION: Mild diverticular changes of the distal descending colon without evidence for acute diverticulitis. No evidence for small bowel obstruction however there is diffusely hyperattenuated appearance to small bowel content of uncertain etiology or clinical significance. Possibility of mild intraluminal hemorrhage cannot be entirely excluded. Radionuclide tagged red blood cell study would be helpful for more definitive evaluation if clinically warranted Electronically Signed: Alvaro Gregorio MD at 16:47 EDT ,
--- NOTE | 2024-04-16 13:59 | EKG12_ITS ---
Test Reason : GI BLEED Blood Pressure : / mmHG Vent. Rate : 056 BPM Atrial Rate : 056 BPM P-R Int : 172 ms QRS Dur : 084 ms QT Int : 410 ms P-R-T Axes : 051 026 067 degrees QTc Int : 395 ms Sinus bradycardia Otherwise normal ECG Confirmed by Vickey Henriquez ([id number]), editor publications [employer]ILLAGRAN ([id number]) on 04/18/2024 9:39:36 AM Also confirmed by Vickey Henriquez ([id number]), editor publications [employer]ILLAGRAN ([id number]) on 04/18/2024 9:40:16 AM Referred By: Confirmed By:Vickey Henriquez
[2024-04-16 14:15] LABS: Absolute Lymphocyte Count 1.98 X10^3/uL (0.83-4.51); Absolute Neutrophil Count 5.3 X10^3/uL (2.0-7.7); Basophil# 0.08 X10^3/uL; Basophil% 0.9 % (0-1); Eosinophil# 0.22 X10^3/uL; Eosinophils% 2.6 % (0-5); Hematocrit 46.3 % (40-54); Hemoglobin 15.5 g/dL (13.0-16.5); Lymphocyte # 1.98 X10^3/ul (0.83-4.51); Lymphocyte % 23.2 % (19-41); Mean Corp Hgb Conc 33.5 g/dL (32-36); Mean Corpuscular Hgb 29.1 pg (27.0-32.0); Mean Platelet Vol. 10.1 fl (6.2-12.0); Monocyte# 0.95 X10^3/uL; Monocyte% 11.1 % (0-10); NRBC Flagged by Analyzer 0 % (0-5); Neutrophil # 5.26 X10^3/uL (2.7-7.7); Neutrophil % 61.6 % (47-70); Platelet Count 281 K/mm3 (150-450); RBC Distribution Width CV 12.9 % (11.6-14.6); RBC Distribution Width SD 40.4 fl (35.1-43.9); Red Blood Count 5.32 M/mm3 (4.6-6.2); White Blood Count 8.5 K/mm3 (4.4-11.0)
[2024-04-16] MEDS: Morphine 4 MG/ML Syringe IV ×2 (14:18→17:50)
[2024-04-16] MEDS: 0.9% Normal Saline (1000mL) 1,000 ML 999 ML IV (14:18)
[2024-04-16] MEDS: Ondansetron 4 MG/2 ML Vial IV (14:18)
[2024-04-16 14:41] LABS: ALB/GLOB Ratio 1.1 RATIO (0.9-2.4); AST(SGOT) 17 U/L (15-37); Alanine Aminotransfer ALT/SGPT 45 U/L (16-61); Albumin, Serum 3.9 g/dL (3.2-5.0); Alkaline Phosphatase 105 U/L (45-117); Anion Gap 7 (5-15); BUN 10 mg/dL (7-18); Calcium,Total 9.6 mg/dL (8.5-10.1); Chloride 105 mmol/L (98-107); Creatinine, Serum 0.91 mg/dL (0.70-1.30); EST Glomerular Filtration Rate 92 mL/min (>60); Est Glom Filt Rate - Afr Amer 112 mL/min (>60); Estimated Creatinine Clearance 113.46 ml/min; Globulin 3.5 g/dL (2.2-4.2); Glucose 115 mg/dL (74-106); Lipase 45 U/L (13-75); Protein, Total 7.4 g/dL (6.4-8.2); Sodium Level 138 mmol/L (136-145)
[2024-04-16 15:00] VITALS: BP 130/71; PULSE 54; RESP 14; O2SAT 94
[2024-04-16 15:28] LABS: Bacteria 0 SEEN /hpf (None Seen); Mucous, Urine 0 SEEN /hpf (<or=2+); Red Blood Cells-Urine 0 SEEN /hpf (0-5); Squamous Epithelial Cells - UA 0 SEEN /hpf (0-5); White Blood Cells 0 SEEN /hpf (0-5)
[2024-04-16 15:33] LABS: Color, Urine Yellow (Yellow); Glucose, Dipstick Normal (Normal); Ketone-Dipstick Negative (Negative); Leukocyte Esterase-Dipstick Negative /ul (Negative); Nitrite-Dipstick Negative (Negative); Occult Blood-Urine Negative /ul (Negative); Protein-Dipstick Negative (Negative); Urine Bilirubin Dipstick Negative (Negative); Urine Clarity Clear (Clear); Urine Urobilinogen Normal (Normal)
[2024-04-16 17:00] VITALS: BP 132/80; PULSE 56; RESP 13; O2SAT 96
--- NOTE | 2024-04-16 17:23 | EDS_ITS ---
HPI History of Present Illness Chief Complaint: GI Bleed Narrative Narrative: Patient is a 53-year-old male past medical history of hypertension, anxiety, depression, PTSD, CAD with stents who presents to the emergency department with a chief complaint of bright red blood per rectum for about a week and a half now. Patient states that he is on Plavix. Patient notes that he has had colonoscopy in the past at the [place] [facility] and has been about 2 years. He states that the point time that scope was clean. Patient notes that recently time he was using the bathroom he has bright red blood in the toilet and noted that he has had some abdominal pain recently prompting him here for further evaluation management. [facility] Medical History Atherosclerosis of coronary artery of [place] heart without angina pectoris Elevated liver enzymes Obesity Anxiety and depression Hypertension History of posttraumatic stress disorder (PTSD) ST elevation (STEMI) myocardial infarction Pulmonary embolism PTSD (post-traumatic stress disorder) Home Medications ?Medication ?Instructions ?Recorded ?Last Taken ?Type fluoxetine 10 mg capsule 80 mg PO DAILY 05/14/19 Unknown History trazodone 50 mg tablet 150 mg PO QHS 05/14/19 Unknown History aspirin 81 mg tablet,delayed 81 mg PO BREAKFAST Fax to [place] 06/23/22 Unknown Rx release [place] #90 tabs atorvastatin 40 mg tablet 40 mg PO QHS Fax to [facility] 06/23/22 Unknown Rx #90 tabs carvedilol 3.125 mg tablet 3.125 mg PO BID Fax to [place] 06/23/22 Unknown Rx [place] #180 tabs clopidogrel 75 mg tablet 75 mg PO DAILY Fax to [facility] 06/23/22 Unknown Rx #90 tabs hydrochlorothiazide 25 mg tablet 25 mg PO DAILY Fax to [facility] 06/23/22 Unknown Rx #90 tabs losartan 25 mg tablet 25 mg PO DAILY Fax to [facility] 06/23/22 Unknown Rx #90 tabs nitroglycerin 0.4 mg sublingual 0.4 mg sublingual Q5M PRN 06/23/22 Unknown Rx tablet Cardiac/Chest Pain FAX to [facility] #25 tabs hyoscyamine sulfate 0.125 mg 0.125 mg PO Q4H PRN pain 5 days 04/16/24 Unknown Rx tablet (Levsin) #20 tabs ondansetron 4 mg disintegrating 4 mg PO Q6H PRN nausea and 04/16/24 Unknown Rx tablet vomiting #20 tabs Allergy/AdvReac Type Severity Reaction Status Date / Time No Known Allergies Allergy Verified 04/16/24 13:11 Family History Mother Lung cancer Concurrent tobacco use history. Father CVA (cerebral vascular accident) Hypertension CAD (coronary artery disease) Early onset. Surgical History History of coronary artery stent placement (~06/20/22) H/O hernia repair Social History household members: significant other Smoking Status: Never smoker alcohol intake: current alcohol intake frequency: holidays/special occasions only substance use type: does not use ROS ROS ED ROS Narrative Constitutional: Denies any fevers, chills, headaches, lightness, dizziness Eyes: Denies changes no vision blurry vision Cardiovascular: Denies chest pain or palpitations Respiratory: Denies coughing wheezing shortness of breath Abdomen: Complains of abdominal pain denies nausea vomiting complains of bright red blood when he has bowel movements : Denies any painful urination, hematuria compel area Neurological: Denies any numbness, weakness, tingling Musculoskeletal: Denies back pain Skin: Denies rashes or lesions EXAM Physical Exam Narrative Exam Narrative: General: Patient lying in bed rest comfortably did not appear to be in acute distress Head: Atraumatic, normocephalic Eyes: PERRL bilaterally, EOMI bilateral, no conjunctival injection noted Neck: Soft, supple, trachea midline Cardiovascular: Regular rate and rhythm no murmurs gallops rubs noted Respiratory: Clear to auscultation bilaterally no rales rhonchi or wheezes noted Abdomen: Soft, nondistended, tenderness palpation in the left lower quadrant no rebound or guarding noted on exam, bowel sounds present x 4 Rectal: No evidence of external hemorrhoids, patient does have bright red blood on digital rectal examination very minimal sample Extremities: +5/5 strength noted in the bilateral upper and lower extremities, no pedal edema no exam Neurological: Patient is following commands knew that he is at [facility] 2023 Skin: Warm, dry, intact Const Vital Signs: 04/16/24 13:11 04/16/24 15:00 04/16/24 17:00 Temperature 97.1 F L Temperature Source Temporal Pulse Rate 63 54 L 56 L Respiratory Rate 18 14 13 Blood Pressure 156/95 H 130/71 H 132/80 H Blood Pressure Mean 115 90 97 Pulse Ox 97 94 96 Oxygen Delivery Method Room Air Room Air MDM MDM MDM Narrative Medical decision making narrative: Patient is a 53-year-old male who presents to the emergency department with a chief complaint of lower GI bleeding for the past week and a half. Patient will have a workup performed here on the differential diagnose includes but not limited to diverticulosis, hemorrhoids. Once workup is obtained reviewed he will be reevaluated. Patient CBC reviewed showed no evidence of leukocytosis white blood count normal at 8.5, hemoglobin stable at 15.5, platelet count normal at 281. Patient's sodium normal 138, potassium normal at 4, creatinine normal at 0.91. Patient AST and ALT were 17 and 45 respectively, total bilirubin normal at 0.50. Patient's lipase normal at 45, urinalysis did not reveal any evidence infection. Patient CT abdomen pelvis with IV contrast was reviewed and showed mild diverticular changes of the distal descending colon without evidence for acute diverticulitis no evidence for small bowel obstruction however there is diffusely hyperattenuating appearance to the small bowel content of uncertain etiology or clinical significance. Possibly mild intraluminal hemorrhage cannot be entirely excluded. Radionucleotide tagged red blood cell study would be helpful. Patient's EKG was reviewed as well as independently interpreted by myself showed sinus bradycardia the rate of 56 bpm. Will discuss case with on-call gastroenterology Dr. Lombardi. Discussed case with Dr. Lombardi gastroenterology who states that he would advise the patient to hold his Plavix and have his hemoglobin checked tomorrow and call his office tomorrow for an appointment for follow-up [place]. Discussed this with the patient and family numbers at bedside and they are agreeable with this plan. Patient be given prescription for Zofran, Bentyl/Levsin. Patient once again was advised to follow-up with his primary care physician have his hemoglobin checked tomorrow although once again his hemoglobin is 15.5 his baseline from 06/21/2022 despite having a week and a half of bleeding. Patient was requesting me to evaluate his mouth on the right sided lower tooth which does not show any evidence of drainable abscess he is already prescribed Augmentin and has this prescription he was advised to start taking this which would be for his dental pain as well as for his abdomen per . Friend. He was encouraged return with worsening pain worsening bleeding or any other concerns. Once again for members agreeable this plan all question concerns answered he is discharged home in stable condition. Lab Data Labs: Laboratory Results - last 24 hr 04/16/24 04/16/24 13:35 15:19 WBC 8.5 RBC 5.32 Hgb 15.5 Hct 46.3 MCV 87.0 MCH 29.1 MCHC 33.5 RDW Std Deviation 40.4 RDW Coeff of Sri 12.9 Plt Count 281 MPV 10.1 Immature Gran % (Auto) 0.600 Neut % (Auto) 61.6 Lymph % (Auto) 23.2 [place] % (Auto) 11.1 H Eos % (Auto) 2.6 Baso % (Auto) 0.9 Absolute Neuts (auto) 5.3 Absolute Lymphs (auto) 1.98 Nucleated RBC % 0 Sodium 138 Potassium 4.0 Chloride 105 Carbon Dioxide 27.0 Anion Gap 7 BUN 10 Creatinine 0.91 Estim Creat Clear Calc 113.46 Est GFR (MDRD) Af Amer 112 Est GFR (MDRD) Non-Af 92 BUN/Creatinine Ratio 11.0 Glucose 115 H Calcium 9.6 Total Bilirubin 0.50 AST 17 ALT 45 Alkaline Phosphatase 105 Total Protein 7.4 Albumin 3.9 Globulin 3.5 Albumin/Globulin Ratio 1.1 Lipase 45 Urine Color Yellow Urine Clarity Clear Urine pH 7.0 Ur Specific [place] 1.010 Urine Protein Negative Urine Glucose (UA) Normal Urine Ketones Negative Urine Occult Blood Negative Urine Nitrite Negative Urine Bilirubin Negative Urine Urobilinogen Normal Ur Leukocyte Esterase Negative Urine RBC 0 SEEN Urine WBC 0 SEEN Ur Squamous Epith Cells 0 SEEN Urine Bacteria 0 SEEN Urine Mucus 0 SEEN Radiography Diagnostic Testing: Clinical Impression(s) from Imaging Studies Abdomen/Pelvis CT 04/16/24 13:59 IMPRESSION: Mild diverticular changes of the distal descending colon without evidence for acute diverticulitis. No evidence for small bowel obstruction however there is diffusely hyperattenuated appearance to small bowel content of uncertain etiology or clinical significance. Possibility of mild intraluminal hemorrhage cannot be entirely excluded. Radionuclide tagged red blood cell study would be helpful for more definitive evaluation if clinically warranted Electronically Signed: Alvaro Gregorio MD at 16:47 EDT Reading Location ID and State: [facility] / [place] Tel , Service support , Discharge Plan Triage Chief Complaint: GI Bleed ED Provider: Adam Montgomery Dx/Rx/DC Orders Clinical Impression: Acute lower GI bleeding, Pain, dental Prescriptions: New hyoscyamine sulfate [Levsin] 0.125 mg tablet 0.125 mg PO Q4H PRN (Reason: pain) 5 Days Qty: 20 0RF ondansetron 4 mg tablet,disintegrating 4 mg PO Q6H PRN (Reason: nausea and vomiting) Qty: 20 0RF No Action trazodone 50 MG tablet 150 mg PO QHS fluoxetine 10 MG capsule 80 mg PO DAILY Patient Comments: TAKE 2 CAPSULES ORALLY DAILY FIRST 5 DAYS ONLY 1 CAPS aspirin 81 mg tablet,delayed release (DR/EC) 81 mg PO BREAKFAST Qty: 90 3RF atorvastatin 40 mg tablet 40 mg PO QHS Qty: 90 3RF carvedilol 3.125 mg tablet 3.125 mg PO BID Qty: 180 3RF clopidogrel 75 mg tablet 75 mg PO DAILY Qty: 90 3RF hydrochlorothiazide 25 mg tablet 25 mg PO DAILY Qty: 90 3RF losartan 25 mg tablet 25 mg PO DAILY Qty: 90 3RF nitroglycerin 0.4 mg tablet, sublingual 0.4 mg sublingual Q5M PRN (Reason: Cardiac/Chest Pain FAX to [facility]) Qty: 25 4RF Primary Care Provider: [facility] Referrals: [facility] [Primary Care Provider] - Samuel Lombardi DO [Med Staff - Active Staff] - Activity Restrictions/Additional Instructions: Hold Plavix. Take antibiotics that you are already prescribed. Follow-up with Dr. Lombardi call his office tomorrow. Have your hemoglobin repeated within the next 1 to 2 days. Return with worsening symptoms or other concerns as discussed here. Print Language: Luxembourgish Disposition Disposition: Home, Self Care
--- NOTE | 2024-04-16 17:39 | ED.RN ---
Dr. Montgomery bedside
[2024-04-16 17:55] VITALS: BP 119/65; PULSE 56; RESP 13; TEMP 36.2; O2SAT 96
== END 2024-04-16 17:59 | disposition home or self-care (01) ==
PROVIDERS: Emergency Provider Emergency Medicine; Visit Provider Emergency Medicine
DX: K92.2 Gastrointestinal hemorrhage, unspecified (principal); R10.9 Unspecified abdominal pain; K08.89 Other specified disorders of teeth and supporting structures; I10 Essential (primary) hypertension; F41.9 Anxiety disorder, unspecified; F32.A Depression, unspecified; F43.10 Post-traumatic stress disorder, unspecified; I25.2 Old myocardial infarction; I25.10 Atherosclerotic heart disease of native coronary artery without angina pectoris; E66.9 Obesity, unspecified; Z95.5 Presence of coronary angioplasty implant and graft; Z86.711 Personal history of pulmonary embolism; Z79.02 Long term (current) use of antithrombotics/antiplatelets; Z79.82 Long term (current) use of aspirin; Z79.899 Other long term (current) drug therapy
CPT/HCPCS: 74177; 80053; 81001; 82274; 83690; 85025; 93005; 96361; 96374; 96375; 96376; 99282; J7030; Q9967; A4216; J2405

== ENCOUNTER → 2024-04-18 | Outpatient (CLI) | payer OTHER, SELFPAY ==
[2022-09-20 13:33] VITALS: BMI 36.9
[2024-04-18 12:26] LABS: Absolute Lymphocyte Count 1.81 X10^3/uL (0.83-4.51); Absolute Neutrophil Count 6.2 X10^3/uL (2.0-7.7); Basophil# 0.05 X10^3/uL; Basophil% 0.5 % (0-1); Eosinophil# 0.28 X10^3/uL; Hematocrit 45.2 % (40-54); Lymphocyte # 1.81 X10^3/ul (0.83-4.51); Lymphocyte % 19.7 % (19-41); Mean Corp Hgb Conc 33.2 g/dL (32-36); Mean Corpuscular Hgb 29.1 pg (27.0-32.0); Mean Corpuscular Volume 87.8 fL (80-94); Mean Platelet Vol. 9.8 fl (6.2-12.0); Monocyte# 0.81 X10^3/uL; Monocyte% 8.8 % (0-10); NRBC Flagged by Analyzer 0 % (0-5); Neutrophil # 6.22 X10^3/uL (2.7-7.7); Neutrophil % 67.6 % (47-70); Platelet Count 278 K/mm3 (150-450); RBC Distribution Width CV 12.4 % (11.6-14.6); RBC Distribution Width SD 39.8 fl (35.1-43.9); Red Blood Count 5.15 M/mm3 (4.6-6.2); White Blood Count 9.2 K/mm3 (4.4-11.0)
[2024-04-18 12:27] LABS: Erythrocyte Sedimentation Rate 14 mm/hr (0-20)
[2024-04-18 13:39] LABS: AST(SGOT) 24 U/L (15-37); Alanine Aminotransfer ALT/SGPT 42 U/L (16-61); Albumin, Serum 3.8 g/dL (3.2-5.0); Alkaline Phosphatase 108 U/L (45-117); Anion Gap 5 (5-15); BUN 12 mg/dL (7-18); BUN/Creat Ratio 12.2 RATIO (10-20); Calcium,Total 9.4 mg/dL (8.5-10.1); Chloride 102 mmol/L (98-107); Creatinine, Serum 0.98 mg/dL (0.70-1.30); EST Glomerular Filtration Rate 84 mL/min (>60); Est Glom Filt Rate - Afr Amer 102 mL/min (>60); Free T3 2.2 pg/mL (2.18-3.98); Globulin 3.7 g/dL (2.2-4.2); Glucose 108 mg/dL (74-106); LDH 167 U/L (87-241); Potassium 3.6 mmol/L (3.5-5.1); Protein, Total 7.5 g/dL (6.4-8.2); Sodium Level 137 mmol/L (136-145); T4 Free Direct 1.06 ng/dL (0.76-1.46); Thyroid Stim Hormone (TSH) 0.876 uIU/mL (0.358-3.740)
[2024-04-22 22:07] LABS: ACCA 37 units (0-90); ALCA 15 units (0-60); AMCA 73 units (0-100); Albumin 3.5 g/dL (2.9-4.4); Alpha-1-Globulins 0.3 g/dL (0.0-0.4); Alpha-2-Globulins 0.8 g/dL (0.4-1.0); Cytoplasmic Ab (C-ANCA) <1:20 titer (Neg:<1:20); Endomysial Antibody IgA Negative (Negative); Gamma Globulin 0.9 g/dL (0.4-1.8); Immunoglobulin A 329 mg/dL (90-386); Immunoglobulin E 28 IU/mL (6-495); Immunoglobulin G 857 mg/dL (603-1613); Immunoglobulin M 83 mg/dL (20-172); PROEL- TOTAL PROTEIN 6.9 g/dL (6.0-8.5); Perinuclear Ab (P-ANCA) <1:20 titer (Neg:<1:20); gASCA 25 units (0-50); t-Transglutaminase IgA <2 U/mL (0-3)
[2024-04-23 12:10] LABS: Anti-Centromere B Ab <0.2 AI (0.0-0.9); Anti-Chromatin <0.2 AI (0.0-0.9); Anti-Jo <0.2 AI (0.0-0.9); Anti-Scleroderma-70 AB <0.2 AI (0.0-0.9); Anti-dsDNA Ab <1 IU/mL (0-9); Beef <0.10 kU/L (Class 0); Chocolate <0.10 kU/L (Class 0); Codfish <0.10 kU/L (Class 0); Corn <0.10 kU/L (Class 0); Egg, Whole <0.10 kU/L (Class 0); Milk (Cow) <0.10 kU/L (Class 0); Mussels <0.10 kU/L (Class 0); Peanut <0.10 kU/L (Class 0); Pork <0.10 kU/L (Class 0); RNP Ab <0.2 AI (0.0-0.9); SJOGREN'S Anti-SS-A test < 0.2 AI (0.0-0.9); SJOGREN'S Anti-SS-B test < 0.2 AI (0.0-0.9); Salmon <0.10 kU/L (Class 0); Shrimp <0.10 kU/L (Class 0); Smith Ab <0.2 AI (0.0-0.9); Soybean <0.10 kU/L (Class 0); Tuna <0.10 kU/L (Class 0); Wheat <0.10 kU/L (Class 0)
== END | disposition home or self-care (01) ==
LOC: LAB 11:53
PROVIDERS: Referring Provider Internal Medicine Gastroenterology; Visit Provider Internal Medicine Gastroenterology
DX: K92.2 Gastrointestinal hemorrhage, unspecified (principal); E07.9 Disorder of thyroid, unspecified; K57.90 Diverticulosis of intestine, part unspecified, without perforation or abscess without bleeding
CPT/HCPCS: 36415; 80053; 82784; 82785; 83516; 83615; 84165; 84439; 84443; 84481; 85025; 85652; 86003; 86005; 86036; 86140; 86225; 86235; 86255; 86256; 86334; 86671

== ENCOUNTER 2024-08-06 07:03 | Day surgery (SDC) | payer OTHER, SELFPAY ==
[2022-09-20 13:33] VITALS: BMI 36.9
--- NOTE | 2024-08-04 16:09 | PAT.ANESEVAL ---
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 When Was Last Pacemaker Check QUESTION #4 FULL TEXT: You/Your Family Experience fever (hyperthermia) with Anesthesia Last Oral Intake Last Oral intake: Last Oral Intake NPO since Meds taken in AM with sips of water? Meds patient instructed to take am of surgery PONV PONV - bottle machine operator: PONV - bottle machine operator Female No 08/04/24 09:56 HX of Motion Sickness No 08/04/24 09:56 HX of N/V After Surgery No 08/04/24 09:56 Non-Smoker Yes 08/04/24 09:56 Duration of Surgery greater No 08/04/24 09:56 than 60 minutes Number of Risk Factors 1 08/04/24 09:56 PONV Score Low Risk 08/04/24 09:56 Height & Weight Height & Weight: Anesthesia: Height & Weight Height 5 ft 10 in 04/16/24 13:11 Respiratory Assessment Respiratory Assessment - bottle machine operator: Respiratory Tract Infection Hx - bottle machine operator Hx Respiratory Tract Infection No 08/04/24 09:56 STOP Sleep Apnea STOP Sleep Apnea - bottle machine operator: STOP Sleep Apnea - bottle machine operator Hx Hypertension Yes: CONTROLLED WITH MEDS 08/04/24 09:56 Hx Sleep Apnea Yes: INSPIRE 08/04/24 09:56 CPAP No 08/04/24 09:56 BIPAP No 08/04/24 09:56 Do you snore loudly (louder than talking or can be heard Do you often feel tired/ fatigued/ sleepy during daytime? Has anyone observed you stop breathing during sleep? STOP Results Positive 08/04/24 09:56 QUESTION #5 FULL TEXT : Do you snore loudly (louder than talking or can be heard through closed doors)? 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 Specify any problems Hx of Preganancy in last 3 N/A 08/04/24 09:56 Months Nurse Filling Out Transfusion NBUCHER 08/04/24 09:56 & Questions: Date: 08/04/24 08/04/24 09:56 Time: 09:59 08/04/24 09:56 Patient unable to answer at this time (ie. confused, unrespo /Reproduction History /Reproductive History - bottle machine operator: /Reproductive Hx- bottle machine operator Hx Now No 08/04/24 09:56 Gestational Age (in weeks): EDC: Hx Hx Para Hx Section SAB No 08/04/24 09:56 FOR[facility]LY [facility], [facility] Medical History Wears contact lenses Wears glasses PTSD (post-traumatic stress disorder) Depression Anxiety Arthritis High cholesterol Stroke/cerebrovascular accident GERD (gastroesophageal reflux disease) Non-smoker History of echocardiogram History of stress test Hypertension Cardiology follow-up encounter History of heart attack Sleep apnea Atherosclerosis of coronary artery of [place] heart without angina pectoris Elevated liver enzymes Obesity Anxiety and depression Hypertension History of posttraumatic stress disorder (PTSD) ST elevation (STEMI) myocardial infarction Pulmonary embolism PTSD (post-traumatic stress disorder) Home Medications ?Medication ?Instructions ?Recorded ?Last Taken ?Type fluoxetine 10 mg capsule 80 mg PO DAILY 05/14/19 Unknown History trazodone 50 mg tablet 150 mg PO QHS 05/14/19 Unknown History aspirin 81 mg tablet,delayed 81 mg PO BREAKFAST Fax to MD 06/23/22 Unknown Rx release [place] #90 tabs atorvastatin 40 mg tablet 40 mg PO QHS Fax to [facility] [place] 06/23/22 Unknown Rx #90 tabs hydrochlorothiazide 25 mg tablet 25 mg PO DAILY Fax to [facility] [place] 06/23/22 Unknown Rx #90 tabs losartan 25 mg tablet 25 mg PO DAILY Fax to [facility] [place] 06/23/22 Unknown Rx #90 tabs nitroglycerin 0.4 mg sublingual 0.4 mg sublingual Q5M PRN 06/23/22 Unknown Rx tablet Cardiac/Chest Pain FAX to [facility] [place] #25 tabs hyoscyamine sulfate 0.125 mg 0.125 mg PO Q4H PRN pain 5 days 04/16/24 Unknown Rx tablet (Levsin) #20 tabs omeprazole 40 mg capsule,delayed 40 mg PO QDAY 04/18/24 Unknown History release Allergy/AdvReac Type Severity Reaction Status Date / Time No Known Allergies Allergy Verified 08/04/24 09:54 Family History Mother Lung cancer Concurrent tobacco use history. Father CVA (cerebral vascular accident) Hypertension CAD (coronary artery disease) Early onset. Surgical History (Updated 08/04/24 @ 15:57 by Fabiola Prasad) History of esophagogastroduodenoscopy (EGD) History of colonoscopy History of cardiac catheterization History of coronary artery stent placement (~06/20/22) H/O hernia repair Social History household members: significant other Smoking Status: Never smoker alcohol intake: current alcohol intake frequency: holidays/special occasions only substance use type: does not use Audit: Pertinent Findings Pertinent Findings EKG Perinent findings: 04/16/2024 sinus bradycardia 56 bpm otherwise normal EKG Stress test pertinent findings: 10/21/2018 normal perfusion stress test moderate workload hypertensive response EF 54% Echo (EF%) pertinent findings: 06/21/2022 moderate LVH EF 55% inferior hypokinesis Heart catheterization pertinent findings: History of coronary artery stent placement 06/20/2022 Recommendation Anesthesia Recommendation Anesthesia recommendation: OPTIMIZED for anesthesia
[2024-08-06] VITALS (9 sets, daily range): BP systolic 111–137; BP diastolic 81–98; PULSE 62–75; RESP 16–18; TEMP 36.1–36.4; O2SAT 92–98; BMI 34.4
--- NOTE | 2024-08-06 07:40 | PCM.PRE.AN2 ---
ASA Classification* ASA Classification ASA Classification: 3 Assessment & Plan Anesthesia* Anesthesia Assessment Anesthesia Assessment: Discussed sedation and/or anesthesia options, risks, benefits, and alternatives with patient/parents/legal guardian/POA. Questions invited. The patient/parents/legal guardian/POA seems to understand and agrees to proceed with anesthesia plan. Reviewed the physical assessment, medical history, allergy history and patient home medications list prior to surgery/procedure/anesthetic and documented any changes. Performed airway and anesthesia risk assessments. Anesthesia Type Anesthesia Type: MAC Anesthesia Focused Assessment* Temperature: 97.4 F Pulse Rate: 75 Blood Pressure: 137/91 Respiratory Rate: 16 Pulse Ox: 98 Airway Assessment Mouth opens: >3 cm Mallampati Score: II Focused Labs Anesthesia Preop lab: CBC WBC 9.2 K/mm3 (4.4-11.0) 04/18/24 12:00 RBC 5.15 M/mm3 (4.6-6.2) 04/18/24 12:00 Hgb 15.0 g/dL (13.0-16.5) 04/18/24 12:00 Hct 45.2 % (40-54) 04/18/24 12:00 Plt Count 278 K/mm3 (150-450) 04/18/24 12:00 CHEMISTRY Potassium 3.6 mmol/L (3.5-5.1) 04/18/24 12:00 Sodium 137 mmol/L (136-145) 04/18/24 12:00 Magnesium 1.8 mg/dL (1.6-2.6) 06/20/22 13:05 BUN 12 mg/dL (7-18) 04/18/24 12:00 Creatinine 0.98 mg/dL (0.70-1.30) 04/18/24 12:00 Glucose 108 mg/dL (74-106) H 04/18/24 12:00 POC Glucose 110 mg/dL (70-110) 04/06/17 13:07 TSH 0.876 uIU/mL (0.358-3.740) 04/18/24 12:00 COAG PT 13.7 SECONDS (11.7-14.9) 06/20/22 12:30 Pre-Assessment Diagnosis/Proposed Procedure Planned Operative Procedure(s): CSCOPE Anesthesia History Anesthesia History - enrolled agent: Anesthesia History - enrolled agent Hx Hospitalization Yes: HEART CATH 202308/04/24 09:56 Any Problems With Anesthesia No 08/04/24 09:56 Cholinesterase deficiency No 08/04/24 09:56 You/Your Family Experience No 08/04/24 09:56 fever (hyperthermia) with Relationship Recent Exposure to Contagious No 08/06/24 07:20 Disease Does patient have nerve No 08/04/24 09:56 stimulator Patient instructed to have device shut off --Does patient have Pacemaker No 08/06/24 07:20 or ICD? When Was Last Pacemaker Check QUESTION #4 FULL TEXT: You/Your Family Experience fever (hyperthermia) with Anesthesia Last Oral Intake Last Oral intake: Last Oral Intake NPO since 00:00 08/06/24 07:20 Meds taken in AM with sips of No 08/06/24 07:20 water? Meds patient instructed to take am of surgery PONV PONV - enrolled agent: PONV - enrolled agent Female No 08/04/24 09:56 HX of Motion Sickness No 08/04/24 09:56 HX of N/V After Surgery No 08/04/24 09:56 Non-Smoker Yes 08/04/24 09:56 Duration of Surgery greater No 08/04/24 09:56 than 60 minutes Number of Risk Factors 1 08/04/24 09:56 PONV Score Low Risk 08/04/24 09:56 Height & Weight Height & Weight: Anesthesia: Height & Weight Height 5 ft 10 in 08/06/24 07:20 Weight: 109 kg 08/06/24 07:20 Body Mass Index (BMI) 34.4 08/06/24 07:20 Respiratory Assessment Respiratory Assessment - enrolled agent: Respiratory Tract Infection Hx - enrolled agent Hx Respiratory Tract Infection No 08/04/24 09:56 STOP Sleep Apnea STOP Sleep Apnea - enrolled agent: STOP Sleep Apnea - enrolled agent Hx Hypertension Yes: CONTROLLED WITH MEDS 08/04/24 09:56 Hx Sleep Apnea Yes: INSPIRE 08/04/24 09:56 CPAP No 08/04/24 09:56 BIPAP No 08/04/24 09:56 Do you snore loudly (louder than talking or can be heard Do you often feel tired/ fatigued/ sleepy during daytime? Has anyone observed you stop breathing during sleep? STOP Results Positive 08/04/24 09:56 QUESTION #5 FULL TEXT : Do you snore loudly (louder than talking or can be heard through closed doors)? 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 Specify any problems Hx of Preganancy in last 3 N/A 08/04/24 09:56 Months Nurse Filling Out Transfusion NBUCHER 08/04/24 09:56 & Questions: Date: 08/04/24 08/04/24 09:56 Time: 09:59 08/04/24 09:56 Patient unable to answer at this time (ie. confused, unrespo /Reproduction History /Reproductive History - enrolled agent: /Reproductive Hx- enrolled agent Hx Now No 08/04/24 09:56 Gestational Age (in weeks): EDC: Hx Hx Para Hx Section SAB No 08/04/24 09:56 PFS Medical History Wears contact lenses Wears glasses PTSD (post-traumatic stress disorder) Depression Anxiety Arthritis High cholesterol Stroke/cerebrovascular accident GERD (gastroesophageal reflux disease) Non-smoker History of echocardiogram History of stress test Hypertension Cardiology follow-up encounter History of heart attack Sleep apnea Atherosclerosis of coronary artery of [place] heart without angina pectoris Elevated liver enzymes Obesity Anxiety and depression Hypertension History of posttraumatic stress disorder (PTSD) ST elevation (STEMI) myocardial infarction Pulmonary embolism PTSD (post-traumatic stress disorder) Home Medications ?Medication ?Instructions ?Recorded ?Last Taken ?Type fluoxetine 10 mg capsule 80 mg PO DAILY 05/14/19 08/05/24 History trazodone 50 mg tablet 150 mg PO QHS 05/14/19 08/05/24 History aspirin 81 mg tablet,delayed 81 mg PO BREAKFAST Fax to [place] 06/23/22 08/02/24 Rx release [place] #90 tabs atorvastatin 40 mg tablet 40 mg PO QHS Fax to [facility] 06/23/22 08/05/24 Rx #90 tabs hydrochlorothiazide 25 mg tablet 25 mg PO DAILY Fax to [facility] 06/23/22 08/05/24 Rx #90 tabs losartan 25 mg tablet 25 mg PO DAILY Fax to [facility] 06/23/22 08/05/24 Rx #90 tabs nitroglycerin 0.4 mg sublingual 0.4 mg sublingual Q5M PRN 06/23/22 Unknown Rx tablet Cardiac/Chest Pain FAX to [facility] #25 tabs hyoscyamine sulfate 0.125 mg 0.125 mg PO Q4H PRN pain 5 days 04/16/24 08/05/24 Rx tablet (Levsin) #20 tabs omeprazole 40 mg capsule,delayed 40 mg PO QDAY 04/18/24 08/05/24 History release Allergy/AdvReac Type Severity Reaction Status Date / Time No Known Allergies Allergy Verified 08/06/24 07:15 Family History Mother Lung cancer Concurrent tobacco use history. Father CVA (cerebral vascular accident) Hypertension CAD (coronary artery disease) Early onset. Surgical History History of esophagogastroduodenoscopy (EGD) History of colonoscopy History of cardiac catheterization History of coronary artery stent placement (~06/20/22) H/O hernia repair Social History household members: significant other Smoking Status: Never smoker alcohol intake: current alcohol intake frequency: holidays/special occasions only substance use type: does not use Review of Systems (Anesthesia) ROS Narrative System reviewed and no additional complaints, except as documented.
--- NOTE | 2024-08-06 07:55 | HP.PCM_ITS ---
HPI - General General Date of Admission: 08/06/24 Date of Service: 08/06/24 Chief Complaint: Lower GI bleeding HPI Narrative JOSE PETERS, is a 54 M who presentsOHJose PETERS, is a 53 M who presents to the office today for establishment with [facility] for complaints of bright red bleeding per rectum. He reports an emergency room visit on 04/16/24 after having a BM and seeing large amounts of bright red blood in the toilet. He denies seeing clots or having abdominal pain before during or after BM. He denies straining to have BMs. He reports daily to 2-3x/day BMs. He reports that he has not had a BM since the ER visit 2 days ago and this is unlike his normal routine. He reports difficulty chewing related to right-sided jaw pain, denies dental abscess. He reports difficulty swallowing due to sore throat, reports chills and fever last few days, but hasn't checked temp with a thermometer. Also reports cold intolerance. He denies heartburn, reflux, abdominal pain and melena. He has a medical history of CAD w/stent placement and is on aspirin and clopidogrel. He reports that he has not taken the clopidogrel for 2 days, since the ER visit as advised. [facility] Medical History Wears contact lenses Wears glasses PTSD (post-traumatic stress disorder) Depression Anxiety Arthritis High cholesterol Stroke/cerebrovascular accident GERD (gastroesophageal reflux disease) Non-smoker History of echocardiogram History of stress test Hypertension Cardiology follow-up encounter History of heart attack Sleep apnea Atherosclerosis of coronary artery of [place] heart without angina pectoris Elevated liver enzymes Obesity Anxiety and depression Hypertension History of posttraumatic stress disorder (PTSD) ST elevation (STEMI) myocardial infarction Pulmonary embolism PTSD (post-traumatic stress disorder) Home Medications ?Medication ?Instructions ?Recorded ?Last Taken ?Type fluoxetine 10 mg capsule 80 mg PO DAILY 05/14/19 08/05/24 History trazodone 50 mg tablet 150 mg PO QHS 05/14/19 08/05/24 History aspirin 81 mg tablet,delayed 81 mg PO BREAKFAST Fax to [place] 06/23/22 08/02/24 Rx release [place] #90 tabs atorvastatin 40 mg tablet 40 mg PO QHS Fax to [facility] 06/23/22 08/05/24 Rx #90 tabs hydrochlorothiazide 25 mg tablet 25 mg PO DAILY Fax to [facility] 06/23/22 08/05/24 Rx #90 tabs losartan 25 mg tablet 25 mg PO DAILY Fax to [facility] 06/23/22 08/05/24 Rx #90 tabs nitroglycerin 0.4 mg sublingual 0.4 mg sublingual Q5M PRN 06/23/22 Unknown Rx tablet Cardiac/Chest Pain FAX to [facility] #25 tabs hyoscyamine sulfate 0.125 mg 0.125 mg PO Q4H PRN pain 5 days 04/16/24 08/05/24 Rx tablet (Levsin) #20 tabs omeprazole 40 mg capsule,delayed 40 mg PO QDAY 04/18/24 08/05/24 History release Allergy/AdvReac Type Severity Reaction Status Date / Time No Known Allergies Allergy Verified 08/06/24 07:15 Family History Mother Lung cancer Concurrent tobacco use history. Father CVA (cerebral vascular accident) Hypertension CAD (coronary artery disease) Early onset. Surgical History History of esophagogastroduodenoscopy (EGD) History of colonoscopy History of cardiac catheterization History of coronary artery stent placement (~06/20/22) H/O hernia repair Social History household members: significant other Smoking Status: Never smoker alcohol intake: current alcohol intake frequency: holidays/special occasions only substance use type: does not use ROS ROS Narrative Admission Review of Systems: CONSTITUTIONAL: No weight loss, fever, chills, + weakness or fatigue. HEENT: Eyes: No visual loss, blurred vision, double vision or yellow sclerae. Ears, Nose, Throat: No hearing loss, sneezing, congestion, runny nose or sore throat. SKIN: No rash or itching, lesions, wounds. CARDIOVASCULAR:+ chest pain, chest pressure or chest discomfort, No palpitations, edema, orthopnea, syncopal events. RESPIRATORY: + shortness of breath, No cough or sputum, wheezing, hemoptysis. GASTROINTESTINAL: + nausea, vomiting, No diarrhea, abdominal pain, melena, BRBPR. GENITOURINARY: No dysuria, frequency, urgency or retention. NEUROLOGICAL: No headache, dizziness, syncope, paralysis, ataxia, numbness or tingling in the extremities, focal weakness, change in bowel or bladder control, seizure. MUSCULOSKELETAL: + muscle, back pain, joint pain or stiffness. HEMATOLOGIC: No anemia, bleeding or bruising. LYMPHATICS: No enlarged nodes. No history of splenectomy. PSYCHIATRIC: + history of depression or anxiety/PTSD. ENDOCRINOLOGIC: No reports of sweating, cold or heat intolerance. No polyuria or polydipsia. ALLERGIES: No history of asthma, hives, eczema or rhinitis. Vital Signs Vital Signs Vital Signs: 08/06/24 07:20 08/06/24 07:20 08/06/24 07:40 Temperature 97.4 F L 97.4 F L Temperature Source Temporal Pulse Rate 75 75 Respiratory Rate 16 16 Respiratory Pattern Normal Blood Pressure 137/91 H 137/91 H Blood Pressure Mean 106 Blood Pressure Source Monitor Blood Pressure Position Semi-Fowlers Blood Pressure Location Left Arm Pulse Ox 98 98 Oxygen Delivery Method Room Air Weight Weight: 240 lb 4.862 oz Body Mass Index (BMI) 34.4 Physical Exam Const alert, oriented x3, no apparent distress and healthy appearing General Appearance: cooperative GI normal to inspection, nondistended, normoactive bowel sounds, soft to palpation, non-tender and non-distended Percussion: normal to percussion Rectal Exam: deferred Assessment & Plan Assessment/Plan (1) Diverticulosis: (2) Colitis - presumed infectious origin: PLAN: Plan \ Assessment and Plan Assessment and Plan (1) Acute lower GI bleeding: Status: Acute Plan: JOSE PETERS, is a 53 M who presents to the office today for establishment with [facility] for complaints of bright red bleeding per rectum. Abd CT from 04/16/24 showed diverticulosis without inflammation in the descending colon. Differential diagnoses include: diverticular hemorrhage, IBD, internal hemorrhoid hemorrhage, thyroid enlargement d/t hypothyroidism, esophageal dysmotility, esophageal stricture, duodenal ulcer, less likely gastric ulcer d/t lack of associated symptoms and bright color of bleeding. * order repeat CBC, IBS/D panel, thyroid levels * order stool studies for inflammatory markers and enzymes * order thyroid US for enlarged thyroid gland * EGD for difficulty swallowing * colonoscopy for bleeding per rectum, diverticular disease on CT * office follow-up * call with results (2) Thyroid disorder: Status: Acute Plan: See above. (3) Diverticulosis:
--- NOTE | 2024-08-06 08:00 | COLBX_PTH ---
PATIENT: JOSE PETERS IV LOC: EN U#:[id number] AGE/SX: 54/M ROOM: RE08/06/[address]: Dr. Samuel Lombardi DO : 1970 BED: DIS: 08/06/2024 SPEC #: [id number] RECD: 08/06/24 10:42 STATUS: PRAVIN TRICIA #: [id number] CECE: 08/06/24 08:[address]: Samuel Lombardi DEPT: SURGICAL PATHOLOGY RECD BY: Maranda Wright ENTERED: 08/06/24 11:18 SP TYPE: COLON BX TO DR: [facility] Tissues: A - Ileum, NOS B - Descending colon C - Sigmoid colon biopsy Procedures: Surgery Specimen Level IV HEADER OPERATION: Colonoscopy, biopsy PRE-OP DIAGNOSIS: Acute lower GI bleeding, thyroid disorder, diverticulitis TISSUE SUBMITTED: A- Terminal ileum biopsy, B- Descending polyp biopsy, C- Sigmoid colon biopsy MICROSCOPIC DIAGNOSIS A. Terminal ileum, biopsy: Fragments of small intestinal mucosa, no pathologic diagnosis. B. Descending colon polyp, biopsy: A fragment of colonic mucosa, no pathologic diagnosis. C. Sigmoid colon, biopsy: Fragments of hyperplastic polyp. 08/07/2024 MICROSCOPIC DESCRIPTION Slides are reviewed. GROSS DESCRIPTION A. Received in fixative is one container labeled with the patient's name and designated Terminal ileum biopsy. The specimen consists of multiple irregular fragments of light [place] soft tissue that in aggregate measure 0.7 x 0.3 x 0.1 cm. The specimen is totally submitted in one cassette. B. Received in fixative is one container labeled with the patient's name and designated Descending polyp biopsy. The specimen consists of one irregular fragment of light [place] soft tissue that measures 0.4 x 0.3 x 0.1 cm. The specimen is totally submitted in one cassette. C. Received in fixative is one container labeled with the patient's name and designated Sigmoid colon biopsy. The specimen consists of multiple irregular fragments of light [place] soft tissue that in aggregate measure 1.8 x 0.3 x 0.2 cm. The specimen is totally submitted in one cassette. 08/06/2024 TC:5 CPT:18597e3
--- NOTE | 2024-08-06 08:33 | OP.CCLET_ITS ---
08/06/2024 [facility] Re : Colonoscopy procedure for [facility] This procedure was performed on Tuesday, August 06, 2024. My impressions and recommendations are as follows: Impressions : - One 7 mm polyp in the descending colon, removed with a jumbo cold forceps. Resected and retrieved. - Patchy moderate inflammation was found in the sigmoid colon secondary to colitis. Biopsied. - Diverticulosis in the recto-sigmoid colon and in the sigmoid colon. - Congested mucosa in the terminal ileum. Biopsied. - The examination was otherwise normal on direct and retroflexion views. Recommendations : - Discharge patient to home. - Resume previous diet. - Continue present medications. - Await pathology results. - Repeat colonoscopy in 5 years for surveillance. My findings are described in the full procedure note, which is enclosed. If I can be of further assistance, please feel free to contact me at . Sincerely, Samuel Lombardi, 08/06/2024 8:33:14 AM This report has been signed electronically.
--- NOTE | 2024-08-06 08:33 | OP.COLON_ITS ---
Patient Name: Bautista Wan Procedure Date: 08/06/2024 7:58 AM Date of : 1970 Age: 54 Procedure: Colonoscopy Indications: Hematochezia Providers: Samuel Lombardi DO Referring MD: Medicines: Monitored Anesthesia Care Patient Profile: This is a 54 year old male. Refer to note in patient chart for documentation of history and physical. Last Colonoscopy: several years ago. Complications: No immediate complications. Procedure: Pre-Anesthesia Assessment: - Prior to the procedure, a History and Physical was performed, and patient medications and allergies were reviewed. The patient is competent. The risks and benefits of the procedure and the sedation options and risks were discussed with the patient. All questions were answered and informed consent was obtained. Patient identification and proposed procedure were verified by the physician in the pre-procedure area. Mental Status Examination: alert and oriented. Airway Examination: normal oropharyngeal airway and neck mobility. Respiratory Examination: clear to auscultation. CV Examination: normal. Prophylactic Antibiotics: The patient does not require prophylactic antibiotics. Prior Anticoagulants: The patient has taken no anticoagulant or antiplatelet agents except for NSAID medication. ASA Grade Assessment: II - A patient with mild systemic disease. After reviewing the risks and benefits, the patient was deemed in satisfactory condition to undergo the procedure. The anesthesia plan was to use monitored anesthesia care (MAC). Immediately prior to administration of medications, the patient was re-assessed for adequacy to receive sedatives. The heart rate, respiratory rate, oxygen saturations, blood pressure, adequacy of pulmonary ventilation, and response to care were monitored throughout the procedure. The physical status of the patient was re-assessed after the procedure. After I obtained informed consent, the scope was passed under direct vision. Throughout the procedure, the patient's blood pressure, pulse, and oxygen saturations were monitored continuously. The Colonoscope was introduced through the anus and advanced to the terminal ileum. The colonoscopy was performed without difficulty. The patient tolerated the procedure well. The quality of the bowel preparation was adequate. The terminal ileum, ileocecal valve, appendiceal orifice, and rectum were photographed. Scope In: 8:09:09 AM Scope Withdrawal Time 0 hours 12 minutes 0 seconds Scope Out: 8:23:32 AM Total Procedure Duration Time 0 hours 14 minutes 23 seconds Findings: The perianal and digital rectal examinations were normal. A 7 mm polyp was found in the descending colon. The polyp was sessile. The polyp was removed with a jumbo cold forceps. Resection and retrieval were complete. Verification of patient identification for the specimen was done. Estimated blood loss was minimal. Patchy moderate inflammation characterized by congestion (edema), erosions and erythema was found in the sigmoid colon. Biopsies were taken with a cold forceps for histology. Verification of patient identification for the specimen was done. Estimated blood loss was minimal. A few small-mouthed diverticula were found in the recto-sigmoid colon and sigmoid colon. A patchy area of the terminal ileum was congested. Biopsies were taken with a cold forceps for histology. Verification of patient identification for the specimen was done. Estimated blood loss was minimal. The exam was otherwise without abnormality on direct and retroflexion views. Impression: - One 7 mm polyp in the descending colon, removed with a jumbo cold forceps. Resected and retrieved. - Patchy moderate inflammation was found in the sigmoid colon secondary to colitis. Biopsied. - Diverticulosis in the recto-sigmoid colon and in the sigmoid colon. - Congested mucosa in the terminal ileum. Biopsied. - The examination was otherwise normal on direct and retroflexion views. Recommendation: - Discharge patient to home. - Resume previous diet. - Continue present medications. - Await pathology results. - Repeat colonoscopy in 5 years for surveillance. Procedure Code(s): --- Professional --- 28430, Colonoscopy, flexible; with biopsy, single or multiple CPT copyright 2021 [employer]. All rights reserved. The codes documented in this report are preliminary and upon gutter hanger review may be revised to meet current compliance requirements. Samuel Lombardi DO 08/06/2024 8:33:14 AM This report has been signed electronically. Number of Addenda: 0 Note Initiated On: 08/06/2024 7:58 AM
--- NOTE | 2024-08-06 08:33 | PCM.POST.ANE ---
Anesthesia: Postop Eval I Current Vital Signs Temperature: 97.5 F Pulse Rate: 72 Blood Pressure: 121/81 Respiratory Rate: 18 Pulse Ox: 94 Oxygen Delivery Method: Room Air Assessment Airway patent: Yes Spontaneous unlabored respirations: Yes Mental status: Asleep nausea: No Vomiting: No Anesthesia Complication: No Fluid Hydration Crystalloid volume administer (ml): 40 Total IV fluid infused: 40 Progress Note Anesthesia document: Postop Eval 1 completed: Yes
--- NOTE | 2024-08-06 08:46 | PCM.POSTANE2 ---
Anesthesia Postop Eval I Sum Postop Eval Completion status Anesthesia document: Postop Eval 1 completed: Yes Anesthesia Postop Eval I Summary Anesthesia Postop Eval I Summary: Anesthesia Postop Eval I: Assessment Summary Airway patent Yes 08/06/24 08:34 [email or web address] Spontaneous unlabored Yes 08/06/24 08:34 [email or web address] respirations Mental status Asleep 08/06/24 08:34 [email or web address] nausea No 08/06/24 08:34 [email or web address] Vomiting No 08/06/24 08:34 [email or web address] Anesthesia Postop Eval I: Fluid Summary Crystalloid volume administer 40 08/06/24 08:34 [email or web address] (ml) Colloids volume administered ( ml) Blood Product volume administered (ml) Total IV fluid infused 40 08/06/24 08:34 [email or web address] Anesthesia Postop Eval I: Summary Notes Anesthesia Complication No 08/06/24 08:34 [email or web address] Anesthesia Complication Comment: Post-operative progress note Anesthesia: Postop Eval II Evaluation Mental status: Awake Pain Level: 0 nausea: No Vomiting: No
== END 2024-08-06 09:13 | disposition home or self-care (01) ==
LOC: EN 07:03 → AC 07:05
PROVIDERS: Visit Provider Internal Medicine Gastroenterology
PROC: 0DJD8ZZ Inspection of Lower Intestinal Tract, Via Natural or Artificial Opening Endoscopic (ICD-10-PCS; CPT 45378; principal; 2024-08-06 07:55)
DX: K63.5 Polyp of colon (principal); K52.9 Noninfective gastroenteritis and colitis, unspecified; K57.30 Diverticulosis of large intestine without perforation or abscess without bleeding; K21.9 Gastro-esophageal reflux disease without esophagitis; F32.A Depression, unspecified; F41.9 Anxiety disorder, unspecified; F43.10 Post-traumatic stress disorder, unspecified; I10 Essential (primary) hypertension; I25.2 Old myocardial infarction; I25.10 Atherosclerotic heart disease of native coronary artery without angina pectoris; E66.9 Obesity, unspecified; E78.00 Pure hypercholesterolemia, unspecified; G47.30 Sleep apnea, unspecified; Z95.5 Presence of coronary angioplasty implant and graft; Z68.34 Body mass index [BMI] 34.0-34.9, adult; Z86.73 Personal history of transient ischemic attack (TIA), and cerebral infarction without residual deficits; Z79.02 Long term (current) use of antithrombotics/antiplatelets; Z79.82 Long term (current) use of aspirin; Z86.711 Personal history of pulmonary embolism; Z79.899 Other long term (current) drug therapy
CPT/HCPCS: 45380; 88305; J2405

== ENCOUNTER 2025-04-08 09:24 | Emergency (ER) | payer OTHER, SELFPAY ==
[2022-09-20 13:33] VITALS: BMI 36.9
[2025-04-08] VITALS (11 sets, daily range): BP systolic 118–169; BP diastolic 71–98; PULSE 57–83; RESP 9–18; TEMP 36.6–36.8; O2SAT 96–97; BMI 34.1
--- NOTE | 2025-04-08 09:33 | EKG12_ITS ---
Test Reason : CP Blood Pressure : */* mmHG Vent. Rate : 73 BPM Atrial Rate : 73 BPM P-R Int : 152 ms QRS Dur : 82 ms QT Int : 384 ms P-R-T Axes : 55 41 69 degrees QTcB Int : 423 ms Normal sinus rhythm Normal ECG Confirmed by NICHELLE SALAZAR, MARY ([id number]), news editor SAGRARIO VILLAGRAN ([id number]) on 04/10/2025 10:31:17 AM Referred By: ANGELES Confirmed By: MARY STEWARD MD
--- NOTE | 2025-04-08 09:33 | RAD_ITS ---
PROCEDURE: CHEST PA AND LATERAL 04/08/2025 REASON FOR EXAM: CHEST PAIN TECHNIQUE: Procedure Code: RADCXR Modality: DX Procedure: CHEST PA AND LATERAL COMPARISON: Prior study dated October 03, 2018. FINDINGS: Hardware: EKG electrodes are seen. A pacemaker device is seen overlying the right lung base. Heart: The heart size is normal. Mediastinum: The mediastinal contour is unremarkable. Lungs: The lungs are clear. Bones: The bones are unremarkable. RAD/Chest PA and Lateral IMPRESSION: NO ACUTE FINDINGS. Reading Location: [place] [id number]
--- NOTE | 2025-04-08 09:34 | EX.ED.DYSGE1 ---
HPI History of Present Illness Chief Complaint: Chest Pain Narrative Narrative: Patient is a 54-year-old male past medical history anxiety, depression, hypercholesteremia, CVA, GERD, CAD status post stent, PE who presented to the emergency department the chief complaint of abdominal pain and back pain. He states that he had back pain for a significant mount time now and states that he has developed abdominal pain the last few days that has been progressively worsening. He states that his pain is currently 9 out of 10 prompting him to come to the emergency department. Patient denies any recent contacts. He states he has had nausea vomiting diarrhea. Patient denies any black or dark tarry stools denies any blood in his stool. Denies any abdominal surgeries [facility] Medical History Wears contact lenses Wears glasses PTSD (post-traumatic stress disorder) Depression Anxiety Arthritis High cholesterol Stroke/cerebrovascular accident GERD (gastroesophageal reflux disease) Non-smoker History of echocardiogram History of stress test Hypertension Cardiology follow-up encounter History of heart attack Sleep apnea Atherosclerosis of coronary artery of [place] heart without angina pectoris Elevated liver enzymes Obesity Anxiety and depression Hypertension History of posttraumatic stress disorder (PTSD) ST elevation (STEMI) myocardial infarction Pulmonary embolism PTSD (post-traumatic stress disorder) Home Medications ?Medication ?Instructions ?Recorded ?Last Taken ?Type fluoxetine 10 mg capsule 80 mg PO DAILY 05/14/19 08/05/24 History trazodone 50 mg tablet 150 mg PO QHS 05/14/19 08/05/24 History aspirin 81 mg tablet,delayed 81 mg PO BREAKFAST Fax to [place] 06/23/22 08/02/24 Rx release [place] #90 tabs atorvastatin 40 mg tablet 40 mg PO QHS Fax to [facility] 06/23/22 08/05/24 Rx #90 tabs hydrochlorothiazide 25 mg tablet 25 mg PO DAILY Fax to [facility] 06/23/22 08/05/24 Rx #90 tabs losartan 25 mg tablet 25 mg PO DAILY Fax to [facility] 06/23/22 08/05/24 Rx #90 tabs nitroglycerin 0.4 mg sublingual 0.4 mg sublingual Q5M PRN 06/23/22 Unknown Rx tablet Cardiac/Chest Pain FAX to [facility] #25 tabs hyoscyamine sulfate 0.125 mg 0.125 mg PO Q4H PRN pain 5 days 04/16/24 08/05/24 Rx tablet (Levsin) #20 tabs omeprazole 40 mg capsule,delayed 40 mg PO QDAY 04/18/24 08/05/24 History release dicyclomine 20 mg tablet 20 mg PO TID #20 tabs 04/08/25 Unknown Rx ondansetron 4 mg disintegrating 4 mg PO Q6H PRN nausea and 04/08/25 Unknown Rx tablet vomiting #20 tabs oxycodone-acetaminophen 5 mg-325 1 tab PO Q6H PRN pain 2 days #8 04/08/25 Unknown Rx mg tablet (Endocet) tabs Allergy/AdvReac Type Severity Reaction Status Date / Time No Known Allergies Allergy Verified 08/06/24 07:15 Family History Mother Lung cancer Concurrent tobacco use history. Father CVA (cerebral vascular accident) Hypertension CAD (coronary artery disease) Early onset. Surgical History History of esophagogastroduodenoscopy (EGD) History of colonoscopy History of cardiac catheterization History of coronary artery stent placement (~06/20/22) H/O hernia repair Social History household members: significant other Smoking Status: Never smoker alcohol intake: current alcohol intake frequency: holidays/special occasions only substance use type: does not use ROS ROS ED ROS Narrative Constitutional: Complains of chills and whole body aches denies any fevers Eyes: Denies double vision blurry vision Cardiovascular: Complains of chest pain denies palpitations Respiratory: Denies coughing wheezing Abdomen: Complains of abdominal pain, nausea, vomiting, diarrhea as noted above : Denies any urinary symptoms Neurological: Denies any numbness, weakness, tingling Musculoskeletal: Complains of back pain as noted above Skin: Denies any rashes or lesions EXAM Physical Exam Narrative Exam Narrative: General: Patient was lying in bed did appear to be uncomfortable secondary to his pain Head: Atraumatic, normocephalic Eyes: PERRL bilaterally, EOMI bilaterally, no conjunctival injection noted Neck: Soft, supple, trachea midline Cardiovascular: Regular rate and rhythm Respiratory: Clear to auscultation bilaterally Abdomen: Soft, nondistended, diffuse tenderness to palpation no rebound or guarding on exam Extremities: +5/5 strength noted in the bilateral upper and lower extremities, radial pulses +2/4 in the bilateral per extremities Neurological: Patient follow commands and that he was at [facility] the year is 2024 Skin: Warm, dry, intact no rashes or lesions noted Const Vital Signs: 04/08/25 09:25 04/08/25 09:26 04/08/25 09:30 Temperature 97.8 F Temperature Source Oral Pulse Rate 76 77 Respiratory Rate 16 18 Respiratory Effort Normal Non-Labored Respiratory Pattern Normal Blood Pressure 129/98 H 169/83 H Blood Pressure Mean 108 111 Pulse Ox 96 96 Oxygen Delivery Method Room Air Room Air 04/08/25 09:33 04/08/25 11:25 04/08/25 11:32 Temperature Temperature Source Pulse Rate 61 60 Respiratory Rate 17 9 L Respiratory Effort Respiratory Pattern Blood Pressure 133/75 H Blood Pressure Mean 94 Pulse Ox 97 Oxygen Delivery Method Room Air Room Air 04/08/25 11:45 04/08/25 12:00 04/08/25 12:15 Temperature Temperature Source Pulse Rate 59 L 62 67 Respiratory Rate 15 14 13 Respiratory Effort Respiratory Pattern Blood Pressure 121/74 H 118/71 124/82 H Blood Pressure Mean 88 85 95 Pulse Ox Oxygen Delivery Method 04/08/25 12:30 04/08/25 12:45 04/08/25 13:00 Temperature Temperature Source Pulse Rate 83 57 L 61 Respiratory Rate 17 17 17 Respiratory Effort Respiratory Pattern Blood Pressure 130/77 H 137/81 H Blood Pressure Mean 92 96 Pulse Ox Oxygen Delivery Method MDM MDM MDM Narrative Medical decision making narrative: Patient is a 54-year-old male who presents to the emergency department chief complaint of abdominal pain radiating to his chest. On the differential diagnose includes but not limited to pancreatitis, cholecystitis, appendicitis, viral gastroenteritis, ACS. Once workup is obtained reviewed he will be reevaluated. Patient be given IV fluids morphine Zofran On reevaluation patient is still in pain he will be given Bentyl. Patient CBC reviewed showed no evidence leukocytosis white blood count normal at 9.8, hemoglobin 15.2, platelet count of 262. Patient D-dimer is normal at 0.36. Patient sodium normal 130, potassium normal 4.1, creatinine normal at 0.90. Patient's troponin was less than 6 with a delta troponin of less than 6 EKG reviewed showed sinus rhythm with a rate of 73 bpm. Patient proBNP normal at 45, lipase was 76. I added on a liver panel. Patient CT abdomen pelvis with IV contrast reviewed showed patchy ground glass opacity right lower lobe and right middle lobe consider pneumonia he does not have any respiratory symptoms to support this therefore have low suspicion for this clinically. No acute intra-abdominal abnormalities noted. Submucosal fatty infiltration of the distal small bowel no acute inflammation stricture or angulation noted. Nonobstructing calculus in the left lower pole simple cyst posterior right midpole. on Reevaluation the patient he is feeling better however still having pain therefore he will be given milligram of Dilaudid and Zofran. Patient is low liver panel reviewed which showed a AST and ALT of 62 and 143 respectively a normal total bilirubin of 0.35 with a direct bilirubin normal at 0.16. On reevaluation the patient is feeling much better and would like to go home. I did originally prior to the liver enzyme panel being added on had discussion with him and his significant other bedside in regards to admission versus home and he states that he wants to go home. He after discussion with the liver panel is still adamant that he wants to go home and will follow-up with his doctors in outpatient setting. He is requesting pain medication for home. He was given prescriptions for these. He was advised to follow-up with his sports information director Dr. Lombardi as well. He states that he has had on and off elevated liver enzymes which is not new for him. Significant other at bedside is also agreeable to this plan. Lab Data Labs: Laboratory Results - last 24 hr 04/08/25 04/08/25 09:30 11:30 WBC 9.8 RBC 5.35 Hgb 15.2 Hct 45.9 MCV 85.8 MCH 28.4 MCHC 33.1 RDW Std Deviation 42.8 RDW Coeff of Sri 13.8 Plt Count 262 MPV 10.1 Immature Gran % (Auto) 0.600 Neut % (Auto) 71.6 H Lymph % (Auto) 16.7 L Becker % (Auto) 8.3 Eos % (Auto) 2.0 Baso % (Auto) 0.8 Absolute Neuts (auto) 7.0 Absolute Lymphs (auto) 1.63 Nucleated RBC % 0 D-Dimer Quant (PE/DVT) 0.36 Sodium 138 Potassium 4.1 Chloride 104 Carbon Dioxide 21.3 Anion Gap 13 BUN 10 Creatinine 0.90 Estim Creat Clear Calc 114.07 Est GFR (MDRD) Non-Af 101 BUN/Creatinine Ratio 11.6 Glucose 135 H Calcium 9.4 Total Bilirubin 0.35 Direct Bilirubin 0.16 AST 62 H ALT 143 H Alkaline Phosphatase 78 Troponin T High Sens < 6 Troponin T Hi Sens 2 Hr < 6 NT pro BNP II 45 Total Protein 6.4 Albumin 3.7 Globulin 2.7 Lipase 76 H Radiography Diagnostic Testing: Clinical Impression(s) from Imaging Studies Chest X-Ray 04/08/25 09:33 IMPRESSION: NO ACUTE FINDINGS. Reading Location: [facility]1 Abdomen/Pelvis CT 04/08/25 09:57 IMPRESSION: 1. Patchy ground-glass opacity right lower lobe and right middle lobe. Consider pneumonia. Is there history of aspiration? 2. No acute intra-abdominal abnormality. Submucosal fatty infiltration of the distal small bowel. No acute inflammation, stricture or angulation seen. This may be the sequelae of chronic inflammatory process. Correlate with history of IBD. 3. Nonobstructing calculus left lower pole. Simple cyst posterior right midpole. [place] 1. No follow-up required. Reading Location: [facility] Discharge Plan Triage Chief Complaint: Chest Pain ED Provider: Adam Montgomery Dx/Rx/DC Orders Clinical Impression: Abdominal pain, Transaminitis, History of gastroesophageal reflux (GERD) Prescriptions: New ondansetron 4 mg tablet,disintegrating 4 mg PO Q6H PRN (Reason: nausea and vomiting) Qty: 20 0RF oxycodone-acetaminophen [Endocet] 5-325 mg tablet 1 tab PO Q6H PRN (Reason: pain) 2 Days Qty: 8 0RF dicyclomine 20 mg tablet 20 mg PO TID Qty: 20 0RF No Action omeprazole 40 mg capsule,delayed release(DR/EC) 40 mg PO QDAY trazodone 50 MG tablet 150 mg PO QHS fluoxetine 10 MG capsule 80 mg PO DAILY Patient Comments: TAKE 2 CAPSULES ORALLY DAILY FIRST 5 DAYS ONLY 1 CAPS hyoscyamine sulfate [Levsin] 0.125 mg tablet 0.125 mg PO Q4H PRN (Reason: pain) 5 Days Qty: 20 0RF aspirin 81 mg tablet,delayed release (DR/EC) 81 mg PO BREAKFAST Qty: 90 3RF atorvastatin 40 mg tablet 40 mg PO QHS Qty: 90 3RF hydrochlorothiazide 25 mg tablet 25 mg PO DAILY Qty: 90 3RF losartan 25 mg tablet 25 mg PO DAILY Qty: 90 3RF nitroglycerin 0.4 mg tablet, sublingual 0.4 mg sublingual Q5M PRN (Reason: Cardiac/Chest Pain FAX to [facility]) Qty: 25 4RF Primary Care Provider: [facility] Referrals: [place] [Primary Care Provider, None] Activity Restrictions/Additional Instructions: Your CT did not show any acute findings today. Follow-up your doctor in outpatient setting these prescriptions as prescribed do not operate anything in the influence of the narcotic as a make you sleepy drowsy uses this for severe pain otherwise use Tylenol and ibuprofen [id number] when you do this you can take something every 3 hours for pain with a max dose of Tylenol in 24 hours 4000 mg max dose of ibuprofen in 24 hours 3200 mg. Use the dicyclomine as prescribed as well. Follow-up with the sports information director. Print Language: Ivorian Disposition Disposition: Home, Self Care
[2025-04-08] MEDS: 0.9% Normal Saline (1000mL) 1,000 ML 999 ML IV (09:42)
[2025-04-08 09:43] LABS: Hematocrit 45.9 % (40-54); Hemoglobin 15.2 g/dL (13.0-16.5); Immature Granulocytes Count 0.060 X10^3/uL (0.0-0.0); Mean Corp Hgb Conc 33.1 g/dL (32-36); Mean Corpuscular Volume 85.8 fL (80-94); Mean Platelet Vol. 10.1 fl (6.2-12.0); NRBC Flagged by Analyzer 0 % (0-5); Platelet Count 262 K/mm3 (150-450); RBC Distribution Width CV 13.8 % (11.6-14.6); RBC Distribution Width SD 42.8 fl (35.1-43.9); Red Blood Count 5.35 M/mm3 (4.6-6.2); White Blood Count 9.8 K/mm3 (4.4-11.0)
[2025-04-08 09:53] LABS: D-Dimer Quantitative (DVT/PE) 0.36 FEU/ug/m (0.27-0.49)
--- NOTE | 2025-04-08 09:57 | CT_ITS ---
PROCEDURE: ABDOMEN/PELVIS W IV CONT ONLY 04/08/2025 REASON FOR EXAM: ABD PAIN TECHNIQUE: Procedure Code: [id number] Modality: CT Procedure: ABDOMEN/PELVIS W IV CONT ONLY Coronal and Sagittal reconstruction series were provided. CONTRAST: Isovue 370 VOLUME: 93 mL One or more dose reduction techniques were used (e.g., Automated exposure control, adjustment of the mA and/or kV according to patient size, use of iterative reconstruction technique. RADIATION DOSE SUMMARY: CTDlvol: 30 mGy DLP: 1325 mGycm COMPARISON: April 16, 2024 FINDINGS: Lung bases: Respiratory motion artifact. Patchy ground-glass opacity right lower lobe and lateral segment right middle lobe.. Liver: Normal Gallbladder: Partially contracted. Otherwise normal. Spleen: Normal. Pancreas: Normal Adrenals: Normal Kidneys: A 3 mm calculus is shown at the left lower pole. No obstruction is seen. A 16 x 12 mm cyst of the posterior right midpole is present. Bladder: Normal. Reproductive Organs: Dystrophic calcification within the otherwise normal prostate. Bowel: Stomach appears normal. Small bowel is nondilated. Submucosal fatty infiltration is seen involving several of the ileal bowel loops. No stricture is seen. No stranding is identified. The colon is nearly empty. A few scattered colonic diverticula are present without diverticulitis. Appendix: Unremarkable Lymph nodes: None appear enlarged. Vasculature: Mild atherosclerosis without aneurysm. Peritoneum / Retroperitoneum: No free air, free fluid or mass. Bones: Vacuum disc phenomenon lumbosacral junction. CT/Abdomen/Pelvis W IV Cont ONLY IMPRESSION: 1. Patchy ground-glass opacity right lower lobe and right middle lobe. Consid er pneumonia. Is there history of aspiration? 2. No acute intra-abdominal abnormality. Submucosal fatty infiltration of the distal small bowel. No acute inflammation, stricture or angulation seen. This may be the sequelae of chronic inflammatory process. Correlate with history of IBD. 3. Nonobstructing calculus left lower pole. Simple cyst posterior right midpo leAubree Temple 1. No follow-up required. Reading Location: [facility]
[2025-04-08 09:58] LABS: Troponin T High Sensitivity < 6 ng/L (<=22)
[2025-04-08 10:00] LABS: Anion Gap 13 (5-15); BUN 10 mg/dL (4-19); BUN/Creat Ratio 11.6 RATIO (10-20); Calcium,Total 9.4 mg/dL (7.6-11.0); Carbon Dioxide 21.3 mmol/L (21.0-32.0); Chloride 104 mmol/L (98-108); Estimated Creatinine Clearance 114.07 ml/min (50-250); Glucose 135 mg/dL (70-99); Lipase 76 U/L (13-75); Potassium 4.1 mmol/L (3.3-5.1); Pro- Brain NATRIURETIC PEPTIDE 45 pg/mL (<=900)
[2025-04-08 11:56] LABS: Troponin T High Sens 2 HR < 6 ng/L (<=22)
[2025-04-08 13:22] LABS: AST(SGOT) 62 U/L (<=37); Alanine Aminotransfer ALT/SGPT 143 U/L (<=46); Albumin, Serum 3.7 g/dL (3.5-5.0); Alkaline Phosphatase 78 U/L (40-129); Bilirubin, Direct 0.16 mg/dL (0.00-0.30); Globulin 2.7 g/dL (2.2-4.2)
== END 2025-04-08 13:50 | disposition home or self-care (01) ==
PROVIDERS: Emergency Provider Emergency Medicine; Visit Provider Emergency Medicine
DX: R10.9 Unspecified abdominal pain (principal); E78.00 Pure hypercholesterolemia, unspecified; I10 Essential (primary) hypertension; I25.10 Atherosclerotic heart disease of native coronary artery without angina pectoris; R74.01 Elevation of levels of liver transaminase levels; F41.9 Anxiety disorder, unspecified; K21.9 Gastro-esophageal reflux disease without esophagitis; Z95.5 Presence of coronary angioplasty implant and graft
CPT/HCPCS: 71046; 74177; 80048; 80076; 83690; 83880; 84484; 85025; 85379; 93005; 96361; 96374; 96375; 96376; 99284; Q9967; A4216; J2405